=== PATIENT | male | born 1990 | race Caucasian/White ===

== ENCOUNTER 2024-03-04 14:57 | Outpatient (AMB) | payer BC, SELFPAY ==
--- NOTE | 2024-03-04 15:00 | MHC.PC.OV ---
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 Intake Note: new patient Allergies povidone-iodine [From Betadine] Allergy (Severe, Verified 03/04/24 15:03) Hives cats Allergy (Severe, Uncoded 03/04/24 15:03) Hives Tobacco use date assessed: 03/04/24 Dental Screening Dental Screen Date: 03/04/24 Did you have a dental visit in the last 12 months?: No Did you have a dental problem in the last 6 months where you did not have access to dental care?: No Was dental information given to patient?: Patient has dentist [facility] Medical History (Updated 03/04/24 @ 15:06 by Ascencion Villarreal) Spinal cord cysts Family History (Updated 03/04/24 @ 15:07 by Ascencion Villarreal) Sister Diabetes Social History (Updated 03/04/24 @ 15:07 by Ascencion Villarreal) Household Members: Family Housing: Apartment Coding
[2024-03-04 15:08] VITALS: BP 134/72; PULSE 95; RESP 16; O2SAT 96; BMI 43.3
--- NOTE | 2024-03-04 15:10 | A.OFFPC_ITS ---
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 Allergies povidone-iodine [From Betadine] Allergy (Severe, Verified 03/04/24 15:03) Hives cats Allergy (Severe, Uncoded 03/04/24 15:03) Hives Tobacco use date assessed: 03/04/24 Dental Screening Dental Screen Date: 03/04/24 Did you have a dental visit in the last 12 months?: No Did you have a dental problem in the last 6 months where you did not have access to dental care?: No Was dental information given to patient?: Patient has dentist [facility] Medical History (Updated 03/04/24 @ 15:06 by Ascencion Villarreal) Spinal cord cysts Family History (Updated 03/04/24 @ 15:13 by Ascencion Villarreal) Sister Diabetes Mental health disorder Social History (Updated 03/04/24 @ 15:11 by Ascencion Villarreal) Household Members: Family Housing: Apartment Alcohol intake: never Patient Tobacco Use Status: Never used Tobacco e-Cigarette/Vaping Use: Never Used service: No Current occupational status: employed 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
--- NOTE | 2024-03-04 15:14 | A.OFFPC_ITS ---
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 Allergies povidone-iodine [From Betadine] Allergy (Severe, Verified 03/04/24 15:03) Hives cats Allergy (Severe, Uncoded 03/04/24 15:03) Hives Tobacco use date assessed: 03/04/24 Dental Screening Dental Screen Date: 03/04/24 Did you have a dental visit in the last 12 months?: No Did you have a dental problem in the last 6 months where you did not have access to dental care?: No Was dental information given to patient?: Patient has dentist HPI HPI Comments History of Present Illness Details This is a 33-year-old male with no significant past medical history presenting [facility]. His last physical was over 5 years ago. He was a patient at [facility], but he never saw anyone there. He is agreeable to fasting labs and screening for STIs including HIV testing. Eye exam is up to date. He is scheduling a dental visit. He just got insurance. He doesn't recall when/if he had Tdap vaccine. 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 He will get it on a Friday. He has a murmur. States at his last physical years ago they mentioned this to him. Denies chest pain or trouble breathing or syncope. He has never had an echocardiogram. He snores heavily. He has insomnia. He feels fatigued toward the end of the day and sometimes feels like sleep is not restorative. ROS: Constitutional: No unexplained weight loss, fever, chills, fatigue or night sweats. Eyes: No vision changes, blurry vision, double vision, eye pain, eye redness, eye discharge. ENT: No hearing loss, sneezing, congestion, runny nose or sore throat. Respiratory: No shortness of breath, cough or sputum production. Cardiovascular: No chest pain, chest pressure or chest discomfort. No palpitations or pedal edema. Gastrointestinal: No anorexia, nausea, vomiting or diarrhea. No abdominal pain or blood in stool. Genitourinary: No dysuria, hematuria, urinary frequency. Neurologic: No headache, dizziness, syncope, unilateral weakness, ataxia, numbness or tingling in the extremities. Musculoskeletal: No muscle pain, back pain, joint pain or swelling. Hematologic/Lymphatics: No bleeding or bruising. No painful lymph nodes. Skin: No rash or itching. Endocrine: No cold or heat intolerance. No polyuria or polydipsia. Psychiatric: No depression or anxiety. No SI/HI. Physical exam: Constitutional: Alert, in no distress. Head: Normocephalic. Eyes: Pupils are equal, round and reactive to light. Extraocular muscles intact. Ear, Nose and Throat: Canals clear. TMs normal. Normal nasal mucosa. No nasal discharge. No oral lesions. Neck: Supple, Full range of motion. No lymphadenopathy. No palpable thyroid masses. Respiratory: Clear to auscultation. Cardiovascular: S1 S2 regular. II/ systolic murmur. Gastrointestinal: Abdomen soft, non-tender, non-distended. Normal bowel sounds. No palpable masses. Genitourinary: Patient declined exam but states home exams are normal. Neurologic: No focal neurological deficits. Symmetric patellar reflexes. Moves all extremities spontaneously. Sensation intact bilaterally. Skin: No rashes Musculoskeletal: No gross deformities. Normal range of motion. Extremities: Warm and well perfused. No clubbing, cyanosis or edema. 3+ peripheral pulses bilaterally. Psychiatric: Normal mood and affect [facility] Medical History (Updated 03/04/24 @ 15:55 by KERLINE Montemayor) Fatigue Snoring Routine physical examination Screening for cardiovascular condition Heart murmur Pilonidal cyst Surgical History (Updated 03/04/24 @ 15:32 by KERLINE Montemayor) History of inguinal hernia repair, bilateral History of wisdom tooth extraction History of ankle surgery Family History (Updated 03/04/24 @ 15:30 by Ascencion Villarreal) Sister Diabetes Mental health disorder Mother Diabetes Maternal Grandmother Alcoholism Paternal Grandmother Cancer Social History (Updated 03/04/24 @ 15:11 by Ascencion Villarreal) Household Members: Family Housing: Apartment Alcohol intake: never Patient Tobacco Use Status: Never used Tobacco e-Cigarette/Vaping Use: Never Used Use of substances other than those prescribed or required for medical reasons: No service: No Current occupational status: employed 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 1. Little interest or pleasure in doing things: more than half the days 2. Feeling down, depressed, or hopeless: several days 3. Trouble falling or staying asleep, or sleeping too much: several days 4. Feeling tired or having little energy: several days 5. Poor appetite or overeating: several days 6. Feeling bad about yourself - or that you are a failure or have let yourself or your family down: not at all 7. Trouble concentrating on things, such as reading the newspaper or watching television: more than half the days 8. Moving or speaking so slowly that other people could have noticed. Or the opposite - being so fidgety or restless that you have been moving around a lot more than usual: several days 9. Thoughts that you would be better off or of hurting yourself in some way: not at all Total score: 9 Depression Screening Interpretation: Positive (Patient says these instances are related to specific events and denies depression. States he moves past these things fine. ) Depression Screening Done: Yes [id number] - PHQ-9 Billing: Yes Source: Developed by Drs. Curtis Khan, Josephine Briceno, Adair Jewell and colleagues, with an educational jeffery from [email or web address]. Thrive Questionnaire Date Thrive assessed: 03/04/24 I am a: Patient What is your living situation today?: I have a steady place to live Within the past 12 months, did the food you bought not last and you didn't have the money to get more?: Never true Within the past 12 months, did you worry whether your food would run out before you got money to buy more?: Never true Do you have trouble paying for medicines?: No Do you have trouble getting transportation to medical appointments?: No Do you have trouble paying your heating and electricity bill?: No Do you have trouble taking care of your child, family member or friend?: No Do you have trouble with day-to-day activities such as bathing, preparing meals, shopping, managing finances, etc.?: No Are you currently unemployed and looking for a job?: No Are you interested in more education?: Yes Please select the resources that you would like help with: None THRIVE Score: 0 JAN-7 AMB Questionnaire JAN-7 Date JAN - 7 assessed: 03/04/24 Feeling nervous, anxious, or on edge: 2 = More than half the days Not being able to stop or control worryin = Several days Worrying too much about different things: 1 = Several days Trouble relaxin = Several days Being so restless that it is hard to sit still: 0 = Not at all Becoming easily annoyed or irritable: 1 = Several days Feeling afraid as if something awful might happen: 1 = Several days Total JAN-7 score (0-4 normal; 5-9 mild; 10-14 moderate; 15-21 severe): 7 Source: Developed by Drs. Curtis Khan, Josephine Briceno, Adair Jewell and colleagues, with an educational jeffery from [email or web address]. JAN-7 Assessment Billing JAN-7 Assessment Tool: JAN-7 Assessment 11269 Physical exam (Primary Care) Vital Signs: Last Vital Signs Pulse 95 03/04/24 15:08 Resp 16 03/04/24 15:08 BP 134/72 03/04/24 15:08 Pulse Ox 96 03/04/24 15:08 Oxygen Delivery Method Room Air 03/04/24 15:08 BMI result Body Mass Index 43.3 Tobacco/Smoking Status: Tobacco use Status Tobacco use date assessed 03/04/24 03/04/24 15:25 Patient Tobacco Use Status Never used Tobacco 03/04/24 15:25 e-Cigarette/Vaping Use Never Used 03/04/24 15:25 PHQ-9: PHQ-9 Score PHQ-9: Total score 9 03/04/24 15:25 Depression Screening Interpretation: Positive (Patient says these instances are related to specific events and denies depression. States he moves past these things fine. ) Thrive Assessment: Date of Thrive Assessment Date Thrive assessed 03/04/24 03/04/24 15:25 Assessment and Plan Assessment & Plan (1) Routine physical examination: Code(s): Z00.00 - Encounter for general adult medical examination without abnormal findings Plan: Patient is seen today for a routine physical. As part of this visit we reviewed the following issues, which are considered and essential part of preventative health in this age group: - Testicular cancer screening, which includes self exam teaching - Blood pressure screening - Cholesterol screening - Nutritional and exercise counseling - Counseling of injury prevention including fire prevention, smoke alarms and seat belt usage - Screening for depression - Prevention of and/or testing for infectious diseases - Education about skin cancer - Recommendations about immunizations - Recommendation of an eye exam - Screening for substance abuse (2) Heart murmur: Code(s): R01.1 - Cardiac murmur, unspecified Plan: Due to poor data quality EKG could not be interpreted (no razors in office to prep chest for EKG unfortunately). Patient has electric razor at home. Will schedule nurse visit and remove chest hair before this. Patient very unders tanding of this. Echocardiogram ordered for further evaluation. (3) Snoring: Code(s): R06.83 - Snoring Plan: Sleep study ordered for snoring and fatigue. (4) Fatigue: Code(s): R53.83 - Other fatigue Qualifiers: Fatigue type: chronic, unspecified Qualified Code(s): R53.82 - Chronic fatigue, unspecified Plan Follow up in 2 months for snoring, murmur, test results. Orders: Orders Lipid Panel Today E66.9 - Obesity, unspecified, Z00.00 - Encounter for general adult medical examination without abnormal findings, Z13.6 - Encounter for screening for cardiovascular disorders Complete Blood Count no Diff Today E66.9 - Obesity, unspecified, Z00.00 - Encounter for general adult medical examination without abnormal findings, Z13.6 - Encounter for screening for cardiovascular disorders RT home sleep study Today R06.83 - Snoring, R53.83 - Other fatigue Syphilis Screen Today Z11.3 - Encounter for screening for infections with a predominantly sexual mode of transmission HIV Ab/Ag Today Z11.3 - Encounter for screening for infections with a predominantly sexual mode of transmission Hepatitis C Antibody Today Z11.3 - Encounter for screening for infections with a predominantly sexual mode of transmission Comprehensive Met. Panel Today E66.9 - Obesity, unspecified, Z00.00 - Encounter for general adult medical examination without abnormal findings, Z13.6 - Encounter for screening for cardiovascular disorders TSH reflex Free T4 Today E66.9 - Obesity, unspecified, Z00.00 - Encounter for general adult medical examination without abnormal findings, Z13.6 - Encounter for screening for cardiovascular disorders AMB EKG-In Office Today E66.9 - Obesity, unspecified, R01.1 - Cardiac murmur, unspecified, Z00.00 - Encounter for general adult medical examination without abnormal findings, Z13.6 - Encounter for screening for cardiovascular disorders CA echo transthoracic complete Today R01.1 - Cardiac murmur, unspecified CT NG by PCR Today Z11.3 - Encounter for screening for infections with a predominantly sexual mode of transmission Coding Level of Care Code New Pt Prev Care 18-39yr([id number] Diagnoses Routine physical examination Z00.00 Heart murmur R01.1 Snoring R06.83 Chronic fatigue R53.82 Fatigue type: chronic, unspecified Additional Codes JAN-7 Assessment Billing - JAN-7 Assessment Tool: JAN-7 Assessment [id number] ([id number])
== END 2024-03-04 16:05 | disposition home or self-care (01) ==
PROVIDERS: Visit Provider Physician Assistant Medical
DX: Z00.00 Encounter for general adult medical examination without abnormal findings (principal); R01.1 Cardiac murmur, unspecified; R06.83 Snoring; R53.82 Chronic fatigue, unspecified
CPT/HCPCS: 99385

== ENCOUNTER 2024-03-06 12:15 | Outpatient (REF) | payer BC, SELFPAY ==
[2024-03-06 12:54] LABS: Hemoglobin 17.1 g/dl (14.0-18.0); Mean Corpuscular HGB Conc 34.9 g/dl (31.0-36.0); Mean Corpuscular Hemoglobin 30.2 pg (27.0-33.0); Mean Corpuscular Volume 86.4 fL (80.0-98.0); Mean Platelet Volume 10.3 fL (9.4-12.4); Platelet Count 230 X10*3/uL (160-400); Red Blood Count 5.67 X10*6/uL (4.60-5.80); Red Cell Distribution Width 11.9 % (11.0-16.0); White Blood Count 6.4 X10*3/uL (4.8-10.8)
[2024-03-06 13:19] LABS: Alanine Aminotransferase 55 U/L (0-40); Albumin Level 4.6 g/dL (3.5-5.0); Alkaline Phosphatase 40 U/L (39-117); Anion Gap 13 (12-20); Aspartate Amino Transferase 25 U/L (5-37); Bilirubin Total 1.4 mg/dL (0.0-1.0); Blood Urea Nitrogen 10 mg/dL (9-16); Calcium 9.9 mg/dL (8.4-10.2); Carbon Dioxide 28 mmol/L (22-29); Chloride 104 mmol/L (96-108); Cholesterol 251 mg/dL (<200); Estimated Glomerular Filt Rate > 60; Glucose Random 125 mg/dL (60-115); HDL Cholesterol 36 mg/dL (>40); LDL Cholesterol Calculated 183 mg/dL (<100); Potassium 4.1 mmol/L (3.3-5.1); Sodium 141 mmol/L (135-145); Total Protein 8.2 g/dL (6.5-8.0); Triglycerides 163 mg/dL (<150)
[2024-03-06 13:31] LABS: HIV AB/AG Nonreactive (Nonreactive); HIV Num 1 0.05 S/CO (0.00-0.99); Syphilis Screen Nonreactive (Nonreactive); ~HepC Num1 0.22 S/CO (0.00-0.79); ~Hepatitis C Antibody Nonreactive (Nonreactive)
[2024-03-06 13:36] LABS: TSH reflex Free T4 0.98 uIU/mL (0.32-4.0)
== END 2024-03-06 12:16 | disposition home or self-care (01) ==
LOC: HO.HMGCLDS 12:15
PROVIDERS: Visit Provider Physician Assistant Medical
DX: Z00.00 Encounter for general adult medical examination without abnormal findings (principal); Z13.6 Encounter for screening for cardiovascular disorders; E66.9 Obesity, unspecified; Z11.3 Encounter for screening for infections with a predominantly sexual mode of transmission
CPT/HCPCS: 36415; 80053; 80061; 84443; 85027; 86780; 86803; 87389

== ENCOUNTER 2024-03-11 14:56 | Outpatient (AMB) | payer BC, SELFPAY ==
--- NOTE | 2024-03-11 15:07 | MHC.PC.OV ---
Vital Signs 03/11/24 15:08 Height 5 ft 10.28 in Weight 307 lb 4 oz BMI 43.7 BP 118/82 Blood Pressure Location Rt brachial Position Sitting Respiration 16 Pulse 83 Pulse Source Pulse Oximeter Pulse Oximetry (%) 96 Oxygen Delivery Method Room Air Intake Visit Reasons: Labs Review Intake Note: Lab results Allergies povidone-iodine [From Betadine] Allergy (Severe, Verified 03/11/24 15:08) Hives cats Allergy (Severe, Uncoded 03/11/24 15:08) Hives Tobacco use date assessed: 03/04/24 Dental Screening Dental Screen Date: 03/04/24 HPI HPI Comments History of Present Illness Details This is a 34-year-old male with a past medical history of morbid obesity presenting to review his lab results. His fasting blood sugar is elevated at 125. His mother and sister have diabetes. His hemoglobin A1c is 9.3%. Patient says he did start checking his blood sugar at home about a month ago, and it was 310. Since then he decreased carbohydrates in his diet, and now he is seeing readings between 110-150. Denies blurry vision, polyuria, polydipsia. He has mixed hyperlipidemia and low HDL cholesterol. Nonsmoker. He eats a lot of red meat and carbohydrates. Does not exercise regularly. His total protein level was mildly elevated when fasting. His fasting bilirubin is elevated at 1.4 and ALT elevated at 55. Alk-phos and AST within normal range. No abdominal pain, nausea, vomiting or unexplained weight loss. No jaundice. Does not take Tylenol frequently or drink any alcohol. ROS: Constitutional: No unexplained weight loss, fever, chills. Respiratory: No shortness of breath, cough or sputum production. Cardiovascular: No chest pain, chest pressure or chest discomfort. No palpitations or pedal edema. Endocrine: No cold or heat intolerance. No polyuria or polydipsia. Physical exam: Constitutional: Alert, in no distress. Respiratory: Clear to auscultation. Cardiovascular: S1 S2 regular. Extremities: Warm and well perfused. No clubbing, cyanosis or edema. Psychiatric: Normal mood and affect [facility] Medical History (Updated 03/11/24 @ 16:35 by KERLINE Montemayor) Type II diabetes mellitus Mixed dyslipidemia Abnormal liver function IFG (impaired fasting glucose) Fatigue Snoring Routine physical examination Screening for cardiovascular condition Heart murmur Pilonidal cyst Surgical History (Updated 03/04/24 @ 15:32 by KERLINE Montemayor) History of inguinal hernia repair, bilateral History of wisdom tooth extraction History of ankle surgery Family History (Updated 03/04/24 @ 15:30 by Ascencion Villarreal) Sister Diabetes Mental health disorder Mother Diabetes Maternal Grandmother Alcoholism Paternal Grandmother Cancer Social History (Updated 03/04/24 @ 15:11 by Ascencion Villarreal) Household Members: Family Housing: Apartment Alcohol intake: never Patient Tobacco Use Status: Never used Tobacco e-Cigarette/Vaping Use: Never Used service: No 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 Curtis Khan, Josephine Briceno, Adair Jewell and colleagues, with an educational jeffery from [employer]. Physical exam (Primary Care) Vital Signs: Last Vital Signs Pulse 83 03/11/24 15:08 Resp 16 03/11/24 15:08 BP 118/82 03/11/24 15:08 Pulse Ox 96 03/11/24 15:08 Oxygen Delivery Method Room Air 03/11/24 15:08 BMI result Body Mass Index 43.7 Tobacco/Smoking Status: Tobacco use Status Tobacco use date assessed 03/04/24 03/11/24 15:10 Patient Tobacco Use Status Never used Tobacco 03/11/24 15:10 e-Cigarette/Vaping Use Never Used 03/11/24 15:10 Thrive Assessment: Date of Thrive Assessment Date Thrive assessed 03/04/24 03/11/24 15:10 Results AMB Hemoglobin A1c AMB Hemoglobin A1c 9.3 % Last Edit by Cherise Clayton CMA on 03/11/24 16:16 Results Reviewed Results Reviewed: Laboratory Tests 03/06/24 12:20 Random Glucose 125 H Total Bilirubin 1.4 H AST 25 ALT 55 H Alkaline Phosphatase 40 Total Protein 8.2 H Triglycerides 163 H Cholesterol 251 H LDL Cholesterol, Calc 183 H HDL Cholesterol 36 L Assessment and Plan Assessment & Plan (1) Type II diabetes mellitus: Code(s): E11.9 - Type 2 diabetes mellitus without complications Qualifiers: Diabetes mellitus [facility] insulin use: without terminal gauger supervisor use Diabetes mellitus complication status: without complication Qualified Code(s): E11.9 - Type 2 diabetes mellitus without complications Plan: New diagnosis with hemoglobin A1c 9.3% with a goal of less than 7%. A1c may be inflated given that he implemented lifestyle modifications within the past month after seeing elevated glucose reading at home, and his home BG readings have already improved. Start metformin ER 500 mg once daily for a week and then increase to 1000 mg daily. Side effects reviewed with the patient. He has a glucometer at home. Target fasting glucose 70-130. Patient defers referral to dietitian and counter clerk [employer] at this time. He would be a good candidate for GLP 1 to help with weight loss. We discussed this briefly today. He will start with the metformin, and we can discuss this further at our next follow up appointment. Discussed pathophysiology of Type II Diabetes Mellitus with the patient in detail.? I explained the [facility] risks and complications associated with uncontrolled diabetes including nephropathy, neuropathy, peripheral vascular disease, retinopathy, increased risk of heart disease and stroke.? (2) Abnormal liver function: Code(s): R94.5 - Abnormal results of liver function studies Plan: Repeat LFTs in 1 month. I am concerned about hepatic steatosis given mixed hyperlipidemia and obesity. We reviewed dietary changes. We will screen for hep a and hep B. Hep C testing negative. Liver ultrasound ordered. (3) Mixed dyslipidemia: Code(s): E78.2 - Mixed hyperlipidemia Plan: We discussed that elevated cholesterol is a risk factor for cardiovascular disease. Recommended low-cholesterol diet. Increase fiber with fruits and vegetables. 30 minutes of cardiovascular exercise at least 5 days per week recommended. Patient declines referral to dietitian at this time. Discussed indication for statin given diabetes, but the patient does not want to start multiple medications at once. Reevaluate at follow up in 6 weeks. (4) IFG (impaired fasting glucose): Code(s): R73.01 - Impaired fasting glucose Orders: Orders AMB Hemoglobin A1c Today R73.01 - Impaired fasting glucose, Z13.9 - Encounter for screening, unspecified Liver Panel 4 Weeks R73.01 - Impaired fasting glucose, R94.5 - Abnormal results of liver function studies Hepatitis B Core Antibody 4 Weeks R73.01 - Impaired fasting glucose, R94.5 - Abnormal results of liver function studies Hepatitis B Surface Antigen 4 Weeks R73.01 - Impaired fasting glucose, R94.5 - Abnormal results of liver function studies US abdomen limited Today R94.5 - Abnormal results of liver function studies Hepatitis A IgM 4 Weeks R73.01 - Impaired fasting glucose, R94.5 - Abnormal results of liver function studies Total Protein 4 Weeks R73.01 - Impaired fasting glucose, R94.5 - Abnormal results of liver function studies Medications: New metformin ER Take 1 tab po daily for 7 days then increase to 2 tabs po once daily 1,000 mg (2 x 500 mg) PO DAILY 90 days 180 tabs 0RF Patient Instructions: 1. Start Metformin ER 500 mg once in the morning. After the first week increase to 2 tablets every morning. 2. The goal for the fasting blood sugar readings is between 70-130. 3. Please return to the lab in 4 weeks to repeat liver function tests. 4. Diabetes.org is a resource for information on diabetes. Coding Level of Care Code Est Pt Level 4 (70602) Complex EM visit Add On G2211 Diagnoses Type 2 diabetes mellitus without complication, without long-term current use of insulin E11.9 Diabetes mellitus [facility] insulin use: without terminal gauger supervisor use Diabetes mellitus complication status: without complication Abnormal liver function R94.5 Mixed dyslipidemia E78.2 IFG (impaired fasting glucose) R73.01
[2024-03-11 15:08] VITALS: BP 118/82; PULSE 83; RESP 16; O2SAT 96; BMI 43.7
== END 2024-03-11 16:29 | disposition home or self-care (01) ==
PROVIDERS: Visit Provider Physician Assistant Medical
DX: E11.9 Type 2 diabetes mellitus without complications (principal); R94.5 Abnormal results of liver function studies; E78.2 Mixed hyperlipidemia; R73.01 Impaired fasting glucose; Z13.9 Encounter for screening, unspecified
CPT/HCPCS: 83036; 99214

== ENCOUNTER 2024-03-29 09:52 | Outpatient (REF) | payer BC, SELFPAY ==
--- NOTE | ~2024-03-29 | US_ITS ---
EXAMINATION: US ABDOMEN LIMITED CLINICAL INFORMATION: Abnormal results of liver function studies. COMPARISON: None available. TECHNIQUE: Real-time imaging of the right upper quadrant abdominal viscera. FINDINGS: PANCREAS: Normal in echotexture. Pancreatic tail is obscured by bowel gas. LIVER: Enlarged, measuring 18.9 cm in vertical length. The liver contour is normal. There is diffuse increased liver parenchymal echogenicity, consistent with hepatic steatosis. No focal hepatic lesion. There is no intrahepatic biliary duct dilatation seen. GALLBLADDER: Normal. The gallbladder is physiologically distended without evidence of stones, sludge, polyps, wall thickening or pericholecystic fluid. COMMON BILE DUCT: Normal in caliber measuring 0.33 cm in diameter. RIGHT KIDNEY: Normal. No hydronephrosis. No renal calculi or focal parenchymal lesions. The kidney measures 14.3 cm in maximum dimension. FREE FLUID: None. US/US abdomen limited IMPRESSION: 1. Hepatomegaly with hepatic steatosis. 2. No cholelithiasis or cholecystitis. 3. Incomplete visualization of pancreas due to bowel gas. Electronically signed by: Tom Hutchison MD 03/31/2024 07:15 AM EDT
== END 2024-03-29 09:53 | disposition home or self-care (01) ==
LOC: HO.HMGCX 09:52
PROVIDERS: PCP Physician Assistant Medical; Visit Provider Physician Assistant Medical
DX: R94.5 Abnormal results of liver function studies (principal)
CPT/HCPCS: 76705

== ENCOUNTER 2024-04-22 14:54 | Outpatient (AMB) | payer BC, SELFPAY ==
--- NOTE | 2024-04-22 15:28 | MHC.PC.OV ---
Vital Signs 04/22/24 15:29 04/22/24 16:07 Height 5 ft 10.28 in Weight 304 lb 2 oz BMI 43.3 BP 116/78 Blood Pressure Location Rt brachial Position Sitting Pulse 81 Pulse Source Pulse Oximeter Pulse Oximetry (%) 94 98 Oxygen Delivery Method Room Air Intake Visit Reasons: diabetes follow up Intake Note: Diabetes follow up Wireless Sales Expert Required: No Allergies povidone-iodine [From Betadine] Allergy (Severe, Verified 04/22/24 15:28) Hives cats Allergy (Severe, Uncoded 04/22/24 15:28) Hives Tobacco use date assessed: 03/04/24 Dental Screening Dental Screen Date: 03/04/24 HPI HPI Comments History of Present Illness Details This is a 34-year-old male with a past medical history of obesity, a heart murmur, fatigue and snoring, recently diagnosed type 2 diabetes, mixed dyslipidemia, hepatomegaly and hepatic steatosis presenting for follow up. Type 2 diabetes-the patient was diagnosed after screening labs demonstrated hemoglobin A1c of 9.3% on 03/11/2024. He has a family history of diabetes. He can not take metformin since this contains povidone (Betadine allergic), and he is taking glipizide ER 5 mg daily. He has forgotten a couple of doses, but generally he is consistent with it. When he checks his blood sugars they are between 105-140 when fasting. He is due for his next hemoglobin A1c in June. On 03/06/2024 his total bilirubin and ALT were mildly elevated at 1.4 and 55, respectively. Normal AST and alkaline phosphatase. He had a liver ultrasound which showed hepatic steatosis and hepatomegaly. Patient was referred to Gastroenterology. He does not drink alcohol. He does not have a family history of liver disease. He has a lot of red meat in his diet, but he has cut back since our last appointment. He still having it about 3 times per week. He is trying to eat more chicken and vegetables. He has continued to decline referral to a dietitian based on his busy schedule. He has lost 3 lb since March. The patient had a heart murmur on exam. His echocardiogram is scheduled. He denies chest pain or shortness of breath. His sleep study is scheduled this Friday. He will get the flu shot at the pharmacy and deferred today. The past couple of weeks his right ear has felt blocked up. He did remove some dry skin and wax at home. There is pressure but no pain. He gets allergies in the fall and spring time. ROS: Constitutional: No unexplained weight loss, fever, chills or night sweats. Eyes: No vision changes, blurry vision, double vision, eye pain, eye redness, eye discharge. ENT: +sneezing and runny nose, no sore throat or sinus pain Respiratory: No shortness of breath, cough or sputum production. Cardiovascular: No chest pain, chest pressure or chest discomfort. No palpitations or pedal edema. Gastrointestinal: No anorexia, nausea, vomiting or diarrhea. No abdominal pain Neurologic: No headache, dizziness, syncope, unilateral weakness, ataxia, numbness or tingling in the extremities. Physical exam: Constitutional: Alert, in no distress. Eyes: Pupils are equal, round and reactive to light. Extraocular muscles intact. Ear, Nose and Throat: Canals with some dry flaking skin. Left TM normal. Right tympanic membrane erythematous with dull light reflex and mild bulging. . Normal nasal mucosa. No nasal discharge. No oral lesions. Neck: Supple, Full range of motion. No lymphadenopathy. No palpable thyroid masses. Respiratory: Clear to auscultation. Cardiovascular: S1 S2 regular. 2/6 systolic murmur. Gastrointestinal: Abdomen soft, non-tender, non-distended. Normal bowel sounds. No palpable masses. Genitourinary: No costovertebral angle tenderness. Neurologic: No focal neurological deficits. Extremities: Warm and well perfused. No clubbing, cyanosis or edema. Psychiatric: Normal mood and affect [facility] Medical History (Updated 04/08/24 @ 10:29 by KERLINE Montemayor) Hepatomegaly Hepatic steatosis Type II diabetes mellitus Mixed dyslipidemia Abnormal liver function IFG (impaired fasting glucose) Fatigue Snoring Routine physical examination Screening for cardiovascular condition Heart murmur Pilonidal cyst Surgical History (Updated 03/04/24 @ 15:32 by KERLINE Montemayor) History of inguinal hernia repair, bilateral History of wisdom tooth extraction History of ankle surgery Family History (Updated 03/04/24 @ 15:30 by Ascencion Villarreal MA) Sister Diabetes Mental health disorder Mother Diabetes Maternal Grandmother Alcoholism Paternal Grandmother Cancer Social History (Updated 03/04/24 @ 15:11 by Ascencion Villarreal MA) Household Members: Family Housing: Apartment Alcohol intake: never Patient Tobacco Use Status: Never used Tobacco e-Cigarette/Vaping Use: Never Used service: No Current occupational status: employed 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 1. Little interest or pleasure in doing things: several days 2. Feeling down, depressed, or hopeless: several days 3. Trouble falling or staying asleep, or sleeping too much: several days 4. Feeling tired or having little energy: not at all 5. Poor appetite or overeating: several days 6. Feeling bad about yourself - or that you are a failure or have let yourself or your family down: not at all 7. Trouble concentrating on things, such as reading the newspaper or watching television: not at all 8. Moving or speaking so slowly that other people could have noticed. Or the opposite - being so fidgety or restless that you have been moving around a lot more than usual: not at all 9. Thoughts that you would be better off or of hurting yourself in some way: not at all Total score: 4 Source: Developed by Drs. Curtis Khan, Josephine Briceno, Adair Jewell and colleagues, with an educational jeffery from [employer]. Thrive Questionnaire Date Thrive assessed: 03/04/24 I am a: Patient What is your living situation today?: I have a steady place to live Within the past 12 months, did the food you bought not last and you didn't have the money to get more?: Never true Within the past 12 months, did you worry whether your food would run out before you got money to buy more?: Never true Do you have trouble paying for medicines?: No Do you have trouble getting transportation to medical appointments?: No Do you have trouble paying your heating and electricity bill?: No Do you have trouble taking care of your child, family member or friend?: No Do you have trouble with day-to-day activities such as bathing, preparing meals, shopping, managing finances, etc.?: No Are you currently unemployed and looking for a job?: No Are you interested in more education?: Yes Please select the resources that you would like help with: Education Currently or been in a relationship where the following occur: No concerns reported THRIVE Score: 0 AUDIT C Alcohol Use Questionnaire (AUDIT-C) 1. How often do you have a drink containing alcohol?: Never Total Score: 0 JAN-7 AMB Questionnaire JAN-7 Date JAN - 7 assessed: 03/04/24 Feeling nervous, anxious, or on edge: 0 = Not at all Not being able to stop or control worryin = Not at all Worrying too much about different things: 0 = Not at all Trouble relaxin = Not at all Being so restless that it is hard to sit still: 0 = Not at all Becoming easily annoyed or irritable: 0 = Not at all Feeling afraid as if something awful might happen: 0 = Not at all Total JAN-7 score (0-4 normal; 5-9 mild; 10-14 moderate; 15-21 severe): 0 Source: Developed by Drs. Curtis Khan, Josephine Briceno, Adair Jewell and colleagues, with an educational jeffery from [employer]. Physical exam (Primary Care) Vital Signs: Last Vital Signs Pulse 81 04/22/24 15:29 BP 116/78 04/22/24 15:29 Pulse Ox 94 04/22/24 15:29 Oxygen Delivery Method Room Air 04/22/24 15:29 BMI result Body Mass Index 43.3 Tobacco/Smoking Status: Tobacco use Status Tobacco use date assessed 03/04/24 04/22/24 15:34 Patient Tobacco Use Status Never used Tobacco 04/22/24 15:34 e-Cigarette/Vaping Use Never Used 04/22/24 15:34 PHQ-9: PHQ-9 Score PHQ-9: Total score 4 04/22/24 15:34 Thrive Assessment: Date of Thrive Assessment Date Thrive assessed 03/04/24 04/22/24 15:34 Currently or been in a relationship where the following occur: No concerns reported Coding Level of Care Code Est Pt Level 4 (57173) Complex EM visit Add On G2211 Diagnoses Type 2 diabetes mellitus without complication, without long-term current use of insulin E11.9 Diabetes mellitus correction insulin use: without truck terminal manager use Diabetes mellitus complication status: without complication Hepatic steatosis K76.0 Hepatomegaly R16.0 Chronic fatigue R53.82 Fatigue type: chronic, unspecified Snoring R06.83 Heart murmur R01.1 Mixed dyslipidemia E78.2 Right otitis media H66.91 Assessment & Plan Assessment & Plan (1) Type II diabetes mellitus: Code(s): E11.9 - Type 2 diabetes mellitus without complications Category: Medical Qualifiers: Diabetes mellitus truck terminal manager insulin use: without correction use Diabetes mellitus complication status: without complication Qualified Code(s): E11.9 - Type 2 diabetes mellitus without complications Plan: Discussed pathophysiology of Type II Diabetes Mellitus with the patient in detail.? I explained the correction risks and complications associated with uncontrolled diabetes including nephropathy, neuropathy, peripheral vascular disease, retinopathy, increased risk of heart disease and stroke.? Discussed lifestyle modification with the patient. Recommended 30 minutes of moderately vigorous exercise 5 days per week to promote weight loss. Recommended annual diabetic eye exam. Recommended importance of checking blood sugars regularly to review at appointments. Continue glipizide extended release 5 mg daily. Patient not interested in GLP 1 at this time. Check hemoglobin A1c 06/10/2024 (2) Hepatic steatosis: Code(s): K76.0 - Fatty (change of) liver, not elsewhere classified Category: Medical Plan: Patient has been referred to Gastroenterology. We will treat dyslipidemia-see below. Lifestyle modifications reviewed again. Avoid alcohol. Decrease cholesterol rich foods in diet. Increase lean proteins and fibrous fruits and vegetables. (3) Hepatomegaly: Code(s): R16.0 - Hepatomegaly, not elsewhere classified Category: Medical Plan: See 2. Refer to Gastroenterology. We will recheck liver enzymes. (4) Fatigue: Code(s): R53.83 - Other fatigue Category: Medical Qualifiers: Fatigue type: chronic, unspecified Qualified Code(s): R53.82 - Chronic fatigue, unspecified Plan: Pending sleep study. (5) Snoring: Code(s): R06.83 - Snoring Category: Medical Plan: Pending sleep study. (6) Heart murmur: Code(s): R01.1 - Cardiac murmur, unspecified Category: Medical (7) Mixed dyslipidemia: Code(s): E78.2 - Mixed hyperlipidemia Category: Medical Plan: Patient will start atorvastatin 20 mg daily. Side effects and administration reviewed. He had 1 mildly elevated liver enzyme which is related to hepatic steatosis, and treating his cholesterol outweighs the risks given concomitant diabetes, morbid obesity and need to reduce cardiovascular risk. Statin may actually help with hepatic steatosis. We will recheck liver enzymes on 06/10/2024 and lipid profile. If he develops any side effects on the medication he will stop it and let me know. (8) Right otitis media: Code(s): H66.91 - Otitis media, unspecified, right ear Plan: Take Augmentin 1 tablet twice daily for 10 days. Recommended oral probiotics and yogurt to reduce the risk of GI side effects. Start Zyrtec 10 mg daily for the next 2 weeks and then as needed for allergy symptoms. Follow up if symptoms do not resolve. Plan Follow up in 3 months for type 2 diabetes. All medications prescribed were run through dailymeds to make sure they do not contain povidone iodine. Orders: Orders Alanine Aminotransferase 06/10/24 E78.5 - Hyperlipidemia, unspecified Lipid Panel 06/10/24 E78.5 - Hyperlipidemia, unspecified Hemoglobin A1c 06/10/24 E11.9 - Type 2 diabetes mellitus without complications Aspartate Amino Transferase 06/10/24 E78.2 - Mixed hyperlipidemia, K76.0 - Fatty (change of) liver, not elsewhere classified, R16.0 - Hepatomegaly, not elsewhere classified Medications: New cetirizine (Zyrtec) 10 mg PO DAILY 30 days 30 tabs 0RF atorvastatin 20 mg PO BEDTIME 90 tabs 0RF amoxicillin-pot clavulanate 875-125 mg 1 tab PO BID 10 days 20 tabs 0RF Patient Instructions: Take Augmentin 1 tab twice daily for 10 days. Take Zyrtec 10 mg at night for 14 days. After this you may you use this as needed for allergy symptoms When you finish Augmentin, start Lipitor (atorvastatin) 20 mg at bedtime. Return for fasting labs 06/10/24 or after this date.
[2024-04-22 15:29] VITALS: BP 116/78; PULSE 81; O2SAT 94; BMI 43.3
[2024-04-22 16:07] VITALS: O2SAT 98
== END 2024-04-22 16:15 | disposition home or self-care (01) ==
PROVIDERS: Visit Provider Physician Assistant Medical
DX: E11.9 Type 2 diabetes mellitus without complications (principal); K76.0 Fatty (change of) liver, not elsewhere classified; R16.0 Hepatomegaly, not elsewhere classified; R53.82 Chronic fatigue, unspecified; R06.83 Snoring; R01.1 Cardiac murmur, unspecified; E78.2 Mixed hyperlipidemia; H66.91 Otitis media, unspecified, right ear

== ENCOUNTER → 2024-04-22 14:54 | Outpatient (BNVA) | payer BC, SELFPAY | PROVIDERS: Visit Provider Physician Assistant Medical ==

== ENCOUNTER → 2024-04-26 09:04 | Outpatient (REF) | payer BC, SELFPAY ==
--- NOTE | 2024-04-26 09:08 | CA_ITS ---
Transthoracic Echocardiogram Patient (Last, First, Middle): Gucci Smith, Gender: Male Date of : 1990 Age: 34 Procedure Date: 04/26/2024 Procedure Type: Transthoracic Echocardiogram Location: OP Height: 177.8 cm Weight: 137.89 kg BSA: 2.49 m2 Heart Rate: bpm BP: 110 / 70 mmHg Warehouse Driver: DOMENICO Referring MD: Karina CHURCHILL Symptoms: R01.1 - Cardiac murmur, unspecified Study Quality: Adequate ECG Rhythm: Sinus Conclusions: - The left ventricular systolic function is normal. The calculated ejection fraction is 64% by biplane method. - No obvious valvular pathology seen on this study. Findings Left Ventricle Normal left ventricular cavity size. There is normal left ventricular wall thickness. The left ventricular systolic function is normal. The calculated ejection fraction is 64% by biplane method. There is no evidence of regional wall motion abnormalities. Diastolic function is normal for age. Right Ventricle Mildly increased right ventricular cavity size. There is normal right ventricular systolic function. Atria Both atria are normal in size. Aortic Valve There is a normal trileaflet aortic valve. There is no aortic valve stenosis. There is no aortic valve regurgitation. Mitral Valve The mitral valve appears normal. There is no mitral valve regurgitation. There is no mitral valve stenosis. Pulmonic Valve The pulmonic valve is likely normal. Tricuspid Valve There is trace tricuspid valve regurgitation. Tricuspid regurgitation envelope is inadequate for calculation of right ventricular systolic pressure. Great Vessels The asc aorta is normal in size. Venous The inferior vena cava was not well visualized. Pericardium/Pleural There is no evidence of pericardial effusion. Prior Study Comparison No prior study available for comparison. Recommendations, Care & Conclusions No obvious valvular pathology seen on this study. Measurements 2D Linear Measurements IVSd: 0.87 0.6-0.9/0.6-1.0 cm LVIDd: 4.87 3.9-5.3/4.2-5.9 cm LVIDd Index: 1.96 2.4-3.2/2.2-3.1 cm/m2 LVIDs: 3.27 2.0-3.6 cm LVPWd: 0.90 0.7-1.1 cm LA Diam: 3.40 2.7-3.8/3.0-4.0 cm LAIDs Index: 1.37 1.5-2.3 cm/m2 LV Mass: 185.31 67-162/88-224 g LV Mass Index: 74.42 43-95/49-115 g/m2 LVOT Diam: 2.00 3.0+(-)1.3 cm 2D Systolic Function EF 4C: 61.60 >55% EF 2C: 64.60 >55% EF BiP: 63.80 >55% Mitral Valve MV Pk E: 1.03 MV PK A: 0.61 MV Decel Time: 227.00 E/A: 1.70 E'Lateral: 14.40 E'Medial: 9.68 E/E' Med: 10.60 E/E' Lat: 7.20 PHT: 67.00 MVA PHT: 3.28 Decel Donley: 4.52 Aortic Valve AoV Pk Fernando: 1.69 AoV Mn Fernando: 1.21 AoV VTI: 0.36 AoV Pk Grad: 11.00 Aov Mn Grad: 6.00 DURGA Cont.VTI: 2.32 LVOT LVOT Pk Fernando: 1.44 LVOT Mn Fernando: 0.95 LVOT VTI: 0.27 LVOT Pk Grad: 8.00 LVOT Mn Grad: 4.00 LVOT Diam: 2.00 LVOT Area: 3.14 Diastolic Function MV Pk E: 1.03 MV Pk A: 0.61 E/A: 1.70 E'Medial: 9.68 E/E' Med: 10.60 E' Laterial: 14.40 E/E' Lat: 7.20 Right Ventricle TAPSE (mm): 21.30 TVS' Fernando: 12.70 Great Vessels Aorta Sinus of Valsalva: 2.83 2.0-3.[address] [place]: 2.15 1.7-3.4 cm Ao Asc: 2.60 2.1-3.4 cm Updated in Other Vendor System with Status of Final Justin De Dios MD electronically signed on 04/26/2024 12:02:41 PM with status of Final
== END ==
LOC: HO.CARD 09:04
PROVIDERS: PCP Physician Assistant Medical; Visit Provider Physician Assistant Medical
DX: R01.1 Cardiac murmur, unspecified (principal); R06.83 Snoring; R53.83 Other fatigue
CPT/HCPCS: 93306; 95806

== ENCOUNTER → 2024-04-26 09:08 | Outpatient (BNV) | payer BC, SELFPAY | PROVIDERS: PCP Physician Assistant Medical; Visit Provider Internal Medicine | DX: R01.1 Cardiac murmur, unspecified (principal) | CPT/HCPCS: 93306 ==

== ENCOUNTER 2024-09-01 15:00 | Outpatient (AMB) | payer BC, SELFPAY ==
--- NOTE | 2024-09-01 15:01 | A.OFFVIS_ITS ---
Vital Signs 09/01/24 15:06 Height 5 ft 10 in Weight 305 lb 8.971 oz BMI 43.8 BP 126/70 Blood Pressure Location Lt brachial Position Sitting Pulse 74 Pulse Source Pulse Oximeter Pulse Oximetry (%) 98 Oxygen Delivery Method Room Air Intake Visit Reasons: Abn. results of liver function Intake Note: NEW PATIENT for abn LFTs. [facility] pt (Don) Prior hx of colo/egd? N Chief Complaint; C/O mild nausea which he believes is diet related. Pt is actively making dietary changes and hoping that it will make a difference. Pt denies any difficulties with BM, reflux, or other concerns at this time. 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 results of liver function: Details: 34-year-old male with past medical history of diabetes, hyperlipidemia, NATTY, he patomegaly is here today for initial consultation. Patient was sent by his PCP. Patient had lab work done back in February and was found to have elevated ALT, normal AST and normal alk phosphate. Laboratory Tests 03/06/24 03/11/24 12:20 16:16 Hgb A1c (Clinic) 9.3 H Total Bilirubin 1.4 H AST 25 ALT 55 H Alkaline Phosphatase 40 Triglycerides 163 H Cholesterol 251 H LDL Cholesterol, Calc 183 H HDL Cholesterol 36 L A1c in March was 9.3% and pt was started on glipizide. Patient's blood sugars as he reports are better, he eliminated carbohydrates, however in the past 3 weeks patient is without a stove and is buying ready prep meals. Patient denies any GI concerning symptoms. Reports that he has been doing well. Denies any dyspepsia, dysphagia or odynophagia. Patient denies any melena, hematochezia, unintentional weight loss or ribbon like stools. Patient reports that in the past couple weeks his diet has not been very healthy as he has been eating pre made meals. Last night he had pizza bites around 20:00 and this morning he woke up with nausea. Patient reports that both of his parents had diabetes. Ultrasound from 03/29/2024 showed hepatomegaly and increase echogenicity of the liver. Patient is overweight. [facility] Medical History NATTY (obstructive sleep apnea) Hepatomegaly Hepatic steatosis Type II diabetes mellitus Mixed dyslipidemia Abnormal liver function IFG (impaired fasting glucose) Fatigue Snoring Routine physical examination Screening for cardiovascular condition Heart murmur Pilonidal cyst Surgical History History of inguinal hernia repair, bilateral History of wisdom tooth extraction History of ankle surgery Family History Sister Diabetes Mental health disorder Mother Diabetes Maternal Grandmother Alcoholism Paternal Grandmother Cancer Social History Household Members: Family Housing: Apartment Alcohol intake: never Patient Tobacco Use Status: Never used Tobacco e-Cigarette/Vaping Use: Never Used service: No Current occupational status: employed 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 Cognitive needs: No Hearing needs: Yes (occasion ) Vision needs: Yes (wear glasses) Review of Systems Const Denies weight gain and Denies weight loss ENT Reports no additional complaints, Denies dysphagia and Denies odynophagia Card Reports no additional complaints Resp Reports no additional complaints GI Denies abdominal pain, Denies belching, Denies melena, Denies bloating, Denies change in bowel habits, Denies dysphagia, Denies excessive flatus, Denies dyspepsia, Denies heartburn, Denies diarrhea, Denies loose stools, Denies nausea, Denies odynophagia and Denies vomiting Reports no additional complaints Musc Reports no additional complaints Neuro Reports no additional complaints Psych Reports no additional complaints Endo Reports no additional complaints Physical Exam Const General: healthy appearing and no acute distress Nutritional Appearance: obese Orientation/consciousness: patient oriented x3 Resp Effort & Inspection: normal respiratory effort, able to speak in complete sentences, no tracheal deviation and symmetric chest movement Auscultation: clear to auscultation bilaterally Cardio Rate: regular rate GI Inspection: Yes normal to inspection, No distended and Yes obesity Palpation (GI): Soft to palpation, not firm, nontender and No hepatosplenomegaly present Auscultation: normal bowel sounds General: Yes no CVA tenderness Back/Spine/Pelvis Back: no CVA tenderness Skin General skin exam: elasticity normal, turgor normal and dry skin Neuro General: patient oriented x3 Psych Appearance: grossly normal Mental Status: mental status grossly normal Results Reviewed Results Reviewed: ABDOMINAL ULTRASOUND 03/29/2024 FINDINGS: PANCREAS: Normal in echotexture. Pancreatic tail is obscured by bowel gas. LIVER: Enlarged, measuring 18.9 cm in vertical length. The liver contour is normal. There is diffuse increased liver parenchymal echogenicity, consistent with hepatic steatosis. No focal hepatic lesion. There is no intrahepatic biliary duct dilatation seen. GALLBLADDER: Normal. The gallbladder is physiologically distended without evidence of stones, sludge, polyps, wall thickening or pericholecystic fluid. COMMON BILE DUCT: Normal in caliber measuring 0.33 cm in diameter. RIGHT KIDNEY: Normal. No hydronephrosis. No renal calculi or focal parenchymal lesions. The kidney measures 14.3 cm in maximum dimension. FREE FLUID: None. US/US abdomen limited IMPRESSION: 1. Hepatomegaly with hepatic steatosis. 2. No cholelithiasis or cholecystitis. 3. Incomplete visualization of pancreas due to bowel gas. Assessment & Plan Assessment & Plan (1) Hepatomegaly: Code(s): R16.0 - Hepatomegaly, not elsewhere classified Category: Medical (2) Hepatic steatosis: Code(s): K76.0 - Fatty (change of) liver, not elsewhere classified Category: Medical (3) Mixed dyslipidemia: Code(s): E78.2 - Mixed hyperlipidemia Category: Medical (4) Abnormal liver function: Code(s): R94.5 - Abnormal results of liver function studies Category: Medical Plan Hepatomegaly, hepatic steatosis most likely not alcoholic fatty liver. We will repeat liver enzymes as well as his lipid panel. Will repeat A1c and if see if it is trending down. Patient should probably be on a different diabetic management to help with weight loss. Possibly GLP 1. No known family history of thyroid cancer or pancreatitis. Will send him for ultrasound and check liver fibrosis panel. Patient was encouraged to eat food low in fat, low-salt, low carbs and high-protein diet. Try to lose weight and exercise. Patient will return in 3 months, sooner on as needed basis. He is agreeable to this plan and verbalizes understanding of instructions. He was given the opportunity to ask questions and all questions answered. Thank you for allowing me to participate in his care Orders: Orders Liver Fibrosis Pnl Today K76.0 - Fatty (change of) liver, not elsewhere classified Lipid Panel Today I25.10 - Atherosclerotic heart disease of [place] coronary artery without angina pectoris Liver Panel Today R74.01 - Elevation of levels of liver transaminase levels Hemoglobin A1c Today Z83.3 - Family history of diabetes mellitus US abdomen comp w elastography Today R79.89 - Other specified abnormal findings of blood chemistry Coding Level of Care Code New Pt Level 4 (25956) Diagnoses Hepatomegaly R16.0 Hepatic steatosis K76.0 Mixed dyslipidemia E78.2 Abnormal liver function R94.5 Time Spent (min) 45 Comment 30 minutes spent with patient and additional 15 minutes spent reviewing his records
[2024-09-01 15:06] VITALS: BP 126/70; PULSE 74; O2SAT 98; BMI 43.8
== END 2024-09-01 15:24 | disposition home or self-care (01) ==
PROVIDERS: PCP Physician Assistant Medical; Visit Provider Nurse Practitioner Family
DX: R16.0 Hepatomegaly, not elsewhere classified (principal); K76.0 Fatty (change of) liver, not elsewhere classified; E78.2 Mixed hyperlipidemia; R94.5 Abnormal results of liver function studies
CPT/HCPCS: 99204

== ENCOUNTER → 2024-09-01 15:00 | Outpatient (BNVA) | payer BC, SELFPAY | PROVIDERS: PCP Physician Assistant Medical; Visit Provider Nurse Practitioner Family ==

== ENCOUNTER 2024-10-01 10:18 | Outpatient (REF) | payer BC, SELFPAY ==
--- NOTE | ~2024-10-01 | US_ITS ---
EXAMINATION: US ABDOMEN COMPLETE WITH LIVER ELASTOGRAPHY HISTORY: R79.89 - Other specified abnormal findings of blood chemistry TECHNIQUE: Real-time grayscale ultrasound imaging of the abdomen was performed and images were reviewed. COMPARISON: Comparison is made with the prior examination dated 03/29/2024. FINDINGS: Liver: The right lobe of the liver measures 20.0 cm in size. The left lobe of the liver measures 15.0 cm in size. The liver demonstrates increased echotexture, consistent with steatosis. No focal mass or intrahepatic biliary ductal dilatation is identified. There is normal hepatopedal flow in the portal vein. Ultrasound elastography of the liver was performed with 10 separate measurements of the liver parenchyma with the patient in the supine position. Measurements were obtained approximately 2 cm below Amara's capsule and perpendicular to the capsule. Images are of satisfactory quality. The median shear wave velocity is 1.97 m/s. The interquartile range/median (IQR/median) is 0.08. Gallbladder and biliary tree: The gallbladder is unremarkable, without evidence of calculi, wall thickening, or pericholecystic fluid. There is no sonographic Rendon sign. The common bile duct is normal in caliber measuring 4 mm. Kidneys: The right kidney measures 14.4 cm in length. The left kidney measures 14.9 cm in length. The kidneys are unremarkable, without evidence of masses, hydronephrosis, or calculi. Pancreas: The pancreas is suboptimally visualized. Spleen: The spleen is enlarged, measuring 13.4 cm in length. Abdominal aorta and inferior vena cava: The visualized portions of the abdominal aorta and inferior vena cava are normal in caliber. There is no free fluid in the abdomen. US/US abdomen comp w elastography IMPRESSION: Hepatosplenomegaly and hepatic steatosis. The median shear wave velocity in the liver is 1.97 m/s, corresponding to a median liver stiffness of 11.75 kPa. The IQR/median value is 0.08. This is indicative of a quality data set. Findings are indicative of a high elastography value suggestive of compensated advanced chronic liver disease. REFERENCE: Society of Radiologists in Ultrasound Liver Stiffness Thresholds (2020): LIVER STIFFNESS THRESHOLDS: *Shear wave velocity less than 1.3 m/s (Liver Stiffness equal or less than 5 kPa): High probability of being normal. *Shear wave velocity less than 1.7 m/s (Liver Stiffness less than 9 kPa): In the absence of other known clinical signs, rules out compensated advanced chronic liver disease. *Shear wave velocity between 1.7-2.1 m/s (Liver Stiffness 9-13 kPa): Suggestive of compensated advanced chronic liver disease but need further test for confirmation. *Shear wave velocity between 2.1-2.4 m/s (Liver Stiffness 13-17 kPa): Rules in compensated advanced chronic liver disease. *Shear wave velocity greater than 2.4 m/s (Liver Stiffness over 17 kPa): Suggestive of clinically significant portal hypertension. QUALITY OF DATA SET: *IQR/Median value equal or less than 0.15 implies a quality data set. *IQR/Median value over 0.15 implies a poor quality data set. SIGNIFICANT CHANGE FROM PRIOR EXAM: Significant change if liver stiffness measurement is 10% or greater from prior exam. OTHER CONSIDERATIONS: The stage of liver fibrosis may be overestimated in the setting of acute hepatitis, liver inflammation, elevated liver function tests, hepatic vascular congestion, obstructive cholestasis, non-fasting state, and infiltrative diseases such as amyloidosis and lymphoma. In some patients with NAFLD, the liver stiffness thresholds for compensated advanced chronic liver disease may be lower. In causes other than viral hepatitis and NAFLD, liver stiffness thresholds are not well established. Electronically signed by: Curtis Forbes MD 10/01/2024 11:12 AM EDT
[2024-10-01 13:45] LABS: Estimated Average Glucose 235 mg/dL; Hemoglobin A1c % 9.8 % (<6.0)
[2024-10-01 13:46] LABS: Alanine Aminotransferase 71 U/L (0-40); Alkaline Phosphatase 45 U/L (39-117); Aspartate Amino Transferase 42 U/L (5-37); Bilirubin Direct 0.3 mg/dL (0.0-0.5); Bilirubin Total 1.3 mg/dL (0.0-1.0); Cholesterol 220 mg/dL (<200); HDL Cholesterol 31 mg/dL (>40); LDL Cholesterol Calculated 151 mg/dL (<100); Total Protein 7.3 g/dL (6.5-8.0); Triglycerides 192 mg/dL (<150)
[2024-10-01 13:51] LABS: Alanine Aminotransferase 71 U/L (0-40); Albumin Level 4.1 g/dL (3.5-5.0); Alkaline Phosphatase 44 U/L (39-117); Aspartate Amino Transferase 37 U/L (5-37); Bilirubin Direct 0.3 mg/dL (0.0-0.5); Bilirubin Total 1.3 mg/dL (0.0-1.0); Cholesterol 224 mg/dL (<200); HDL Cholesterol 32 mg/dL (>40); LDL Cholesterol Calculated 154 mg/dL (<100); Total Protein 7.3 g/dL (6.5-8.0); Triglycerides 193 mg/dL (<150)
[2024-10-02 03:33] LABS: Hepatitis A Antibody IgM 0.14 Index (0-0.79); ~Hepatitis A Antibody IgM Nonreactive (Nonreactive)
[2024-10-02 03:33] LABS: HBc Num1 0.07 S/CO (0.00-0.79); HBsAGNum1 0.32 S/CO (0.00-0.99); Hepatitis B Core Antibody Nonreactive (Nonreactive); Hepatitis B Surface Antigen Negative (Negative)
[2024-10-09 18:48] LABS: FIB-ALT 57 U/L (9-46); FIB-Alpha-2-Macroglobulin 199 mg/dL (106-279); FIB-Apolipoprotein A1 127 mg/dL (94-176); FIB-GGT 31 U/L (3-90); FIB-Haptoglobin 132 mg/dL (43-212); Liver Fibrosis Score 0.29; Liver Fibrosis Stage F1; Nec Inflam Act Grade A1; Nec Inflam Act Score 0.33
== END 2024-10-01 10:19 | disposition home or self-care (01) ==
LOC: HO.US 10:18
PROVIDERS: PCP Physician Assistant Medical; Visit Provider Nurse Practitioner Family
DX: R79.89 Other specified abnormal findings of blood chemistry (principal); R94.5 Abnormal results of liver function studies; E78.5 Hyperlipidemia, unspecified; E11.9 Type 2 diabetes mellitus without complications; K76.0 Fatty (change of) liver, not elsewhere classified; I25.10 Atherosclerotic heart disease of native coronary artery without angina pectoris; R74.01 Elevation of levels of liver transaminase levels
CPT/HCPCS: 36415; 76700; 76981; 80061; 80076; 81596; 83036; 86704; 86709; 87340

== ENCOUNTER → 2024-10-01 10:22 | Outpatient (BNV) | payer BC, SELFPAY | PROVIDERS: PCP Physician Assistant Medical; Visit Provider Radiology Diagnostic Radiology | DX: R16.2 Hepatomegaly with splenomegaly, not elsewhere classified (principal) | CPT/HCPCS: 76981 ==

== ENCOUNTER 2024-10-18 15:41 | Outpatient (AMB) | payer BC, SELFPAY ==
--- NOTE | 2024-10-18 15:45 | A.OFFPC_ITS ---
Vital Signs 10/18/24 15:54 Height 5 ft 10 in Weight 300 lb 8 oz BMI 43.1 BP 128/82 Blood Pressure Location Rt brachial Position Sitting Respiration 14 Pulse 89 Pulse Source Pulse Oximeter Temp 98.2 F Temp Source Temporal Artery Scan Pulse Oximetry (%) 97 Oxygen Delivery Method Room Air Intake Visit Reasons: diabetic treatment plan and lab results Intake Note: Gucci presents in the office to go over his diabetic treatment plan and lab results. Allergies povidone-iodine [From Betadine] Allergy (Severe, Verified 10/18/24 15:48) Hives animal dander Allergy (Intermediate, Verified 10/18/24 15:48) Hives Tobacco use date assessed: 10/18/24 Dental Screening Dental Screen Date: 10/18/24 Did you have a dental visit in the last 12 months?: No Did you have a dental problem in the last 6 months where you did not have access to dental care?: No Was dental information given to patient?: Patient declined HPI HPI Comments History of Present Illness Details This is a 34-year-old male with a past medical history of obesity, a heart murmur, fatigue and snoring, recently diagnosed type 2 diabetes, mixed dyslipidemia, hepatomegaly and hepatic steatosis presenting for follow up. Patient endorses right shoulder pain for the last few months. It bothers him when he lifts his arm up. He is right-handed. 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 He does a lot of repetitive movements with it. No trauma, numbness, tingling, neck pain, weakness. He has not tried any treatments. Type 2 diabetes-the patient was diagnosed after screening labs demonstrated hemoglobin A1c of 9.3% on 03/11/2024. Hemoglobin A1c is up to 9.8%. He has not been checking blood sugars regularly. He had an eye exam in 2023. He has a family history of diabetes. He can not take metformin since this contains povidone (Betadine allergic), and he was taking glipizide ER 5 mg daily, but he stopped taking it 2 months ago. He says he has been busy. He says he is not great it taking meds. He does not want injectable medications however. He was prescribed atorvastatin, but he has not been taking this for the last month or so. His cholesterol did improve despite noncompliance with it. The patient had an echocardiogram completed on 04/26/2024 which showed no significant valve disease, and ejection fraction was normal. On 03/06/2024 his total bilirubin and ALT were mildly elevated at 1.4 and 55, respectively. Negative testing for hepatitis a, B and C. Normal AST and alkaline phosphatase. He had a liver ultrasound which showed hepatic steatosis and hepatomegaly. Patient is seeing Gastroenterology. He does not drink alcohol. He has a lot of red meat in his diet, but he has cut back since our last appointment. He still having it about 3 times per week. He is trying to eat more chicken and vegetables. He has continued to decline referral to a dietitian, hospital educator and endocrinology based on his busy schedule. He had a sleep study which showed obstructive sleep apnea. He was started on CPAP. I referred to sleep Medicine, but he never heard back from them. ROS: Constitutional: No unexplained weight loss, fever, chills or night sweats. Eyes: No vision changes, blurry vision, double vision, eye pain, eye redness, eye discharge. Respiratory: No shortness of breath, cough or sputum production. Cardiovascular: No chest pain, chest pressure or chest discomfort. No palpitations or pedal edema. Gastrointestinal: No anorexia, nausea, vomiting or diarrhea. No abdominal pain Neurologic: No headache, dizziness, syncope, unilateral weakness, ataxia, numbness or tingling in the extremities. Physical exam: Constitutional: Alert, in no distress. Eyes: Pupils are equal, round and reactive to light. Extraocular muscles intact. Neck: Supple, Full range of motion. No lymphadenopathy. No palpable thyroid masses. Respiratory: Clear to auscultation. Cardiovascular: S1 S2 regular. 2/6 systolic murmur. Shoulders: Full range of motion. Nontender to palpation. Right empty can maneuver produces right shoulder pain. No erythema or swelling or obvious deformity. Neurologic: No focal neurological deficits. Extremities: Warm and well perfused. No clubbing, cyanosis or edema. Psychiatric: Normal mood and affect [facility] Medical History (Updated 10/18/24 @ 17:21 by KERLINE Montemayor) Right shoulder pain NATTY (obstructive sleep apnea) Hepatomegaly Hepatic steatosis Type II diabetes mellitus Mixed dyslipidemia Abnormal liver function IFG (impaired fasting glucose) Fatigue Snoring Routine physical examination Screening for cardiovascular condition Heart murmur Pilonidal cyst Surgical History History of inguinal hernia repair, bilateral History of wisdom tooth extraction History of ankle surgery Family History Sister Diabetes Mental health disorder Mother Diabetes Maternal Grandmother Alcoholism Paternal Grandmother Cancer Social History (Updated 10/18/24 @ 15:50 by Paris Ni MA) Household Members: Family Housing: Apartment Alcohol intake: never Patient Tobacco Use Status: Never used Tobacco e-Cigarette/Vaping Use: Never Used service: No Current occupational status: employed 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 1. Little interest or pleasure in doing things: not at all 2. Feeling down, depressed, or hopeless: several days 3. Trouble falling or staying asleep, or sleeping too much: more than half the days 4. Feeling tired or having little energy: more than half the days 5. Poor appetite or overeating: not at all 6. Feeling bad about yourself - or that you are a failure or have let yourself or your family down: several days 7. Trouble concentrating on things, such as reading the newspaper or watching television: several days 8. Moving or speaking so slowly that other people could have noticed. Or the opposite - being so fidgety or restless that you have been moving around a lot more than usual: more than half the days 9. Thoughts that you would be better off or of hurting yourself in some way: not at all Total score: 9 Depression Screening Interpretation: Positive Depression Screening Done: Yes 60085 - PHQ-9 Billing: Patient declined-do not bill Source: Developed by Drs. Curtis Khan, Josephine Briceno, Adair Jewell and colleagues, with an educational jeffery from [employer]. Thrive Questionnaire Date Thrive assessed: 10/18/24 I am a: Patient What is your living situation today?: I have a steady place to live Within the past 12 months, did the food you bought not last and you didn't have the money to get more?: Never true Within the past 12 months, did you worry whether your food would run out before you got money to buy more?: Never true Do you have trouble paying for medicines?: No Do you have trouble getting transportation to medical appointments?: No Do you have trouble paying your heating and electricity bill?: No Do you have trouble taking care of your child, family member or friend?: No Do you have trouble with day-to-day activities such as bathing, preparing meals, shopping, managing finances, etc.?: No Are you currently unemployed and looking for a job?: No Are you interested in more education?: No Please select the resources that you would like help with: None Currently or been in a relationship where the following occur: I choose not to answer THRIVE Score: 0 AUDIT C Alcohol Use Questionnaire (AUDIT-C) 1. How often do you have a drink containing alcohol?: Never Total Score: 0 JAN-7 AMB Questionnaire JAN-7 Date JAN - 7 assessed: 10/18/24 Feeling nervous, anxious, or on edge: 1 = Several days Not being able to stop or control worryin = Several days Worrying too much about different things: 1 = Several days Trouble relaxin = Not at all Being so restless that it is hard to sit still: 2 = More than half the days Becoming easily annoyed or irritable: 0 = Not at all Feeling afraid as if something awful might happen: 1 = Several days Total JAN-7 score (0-4 normal; 5-9 mild; 10-14 moderate; 15-21 severe): 6 Source: Developed by Drs. Curtis Khan, Josephine Briceno, Adair Jewell and colleagues, with an educational jeffery from [employer]. JAN-7 Assessment Billing JAN-7 Assessment Tool: JAN-7 Assessment 56342 ACT Questionnaire In the past 4 weeks, how much of the time did your asthma keep you from getting as much done at work, school or at home?: All of the time Score: 1 Physical exam (Primary Care) Vital Signs: Last Vital Signs Temp 98.2 F 10/18/24 15:54 Pulse 89 10/18/24 15:54 Resp 14 10/18/24 15:54 BP 128/82 10/18/24 15:54 Pulse Ox 97 10/18/24 15:54 Oxygen Delivery Method Room Air 10/18/24 15:54 BMI result Body Mass Index 43.1 Tobacco/Smoking Status: Tobacco use Status Tobacco use date assessed 10/18/24 10/18/24 15:57 Patient Tobacco Use Status Never used Tobacco 10/18/24 15:50 e-Cigarette/Vaping Use Never Used 10/18/24 15:50 PHQ-9: PHQ-9 Score PHQ-9: Total score 9 10/18/24 16:30 Depression Screening Interpretation: Positive Thrive Assessment: Date of Thrive Assessment Date Thrive assessed 10/18/24 10/18/24 15:57 Currently or been in a relationship where the following occur: I choose not to answer Coding Level of Care Code Est Pt Level 4 (26120) Complex EM visit Add On G2211 Diagnoses Type 2 diabetes mellitus without complication, without long-term current use of insulin E11.9 Diabetes mellitus half-way insulin use: without half-way use Diabetes mellitus complication status: without complication Hepatic steatosis K76.0 Hepatomegaly R16.0 Mixed dyslipidemia E78.2 Right shoulder pain M25.511 NATTY (obstructive sleep apnea) G47.33 Additional Codes JAN-7 Assessment Billing - JAN-7 Assessment Tool: JAN-7 Assessment 77429 ([id number]) Assessment & Plan Assessment & Plan (1) Type II diabetes mellitus: Code(s): E11.9 - Type 2 diabetes mellitus without complications Category: Medical Qualifiers: Diabetes mellitus half-way insulin use: without half-way use Diabetes mellitus complication status: without complication Qualified Code(s): E11.9 - T ype 2 diabetes mellitus without complications Plan: Discussed pathophysiology of Type II Diabetes Mellitus with the patient in detail.? I explained the half-way risks and complications associated with uncontrolled diabetes including nephropathy, neuropathy, peripheral vascular disease, retinopathy, increased risk of heart disease and stroke.? Discussed lifestyle modification with the patient. Recommended 30 minutes of moderately vigorous exercise 5 days per week to promote weight loss. Recommended annual diabetic eye exam. Recommended importance of checking blood sugars regularly to review at appointments. Reminded patient to bring glucometer to appointments. I would like him to be on a GLP 1 given obesity, diabetes and hepatic steatosis however Rybelsus contains povidone, and he is allergic to Betadine (hives), and he refuses to take injectable medications. Declines referral to hospital educator, dietitian and endocrinology. Increase glipizide to 10 mg daily and add Januvia 50 mg daily. Ran Januvia through daily meds, and this does not contain povidone iodine. (2) Hepatic steatosis: Code(s): K76.0 - Fatty (change of) liver, not elsewhere classified Category: Medical Plan: Followed by Gastroenterology. We will treat dyslipidemia-see below. Lifestyle modifications reviewed again. Avoid alcohol. Decrease cholesterol rich foods in diet. Increase lean proteins and fibrous fruits and vegetables. (3) Hepatomegaly: Code(s): R16.0 - Hepatomegaly, not elsewhere classified Category: Medical (4) Mixed dyslipidemia: Code(s): E78.2 - Mixed hyperlipidemia Category: Medical Plan: Patient will restart atorvastatin 20 mg daily. Side effects and administration reviewed. He had 1 mildly elevated liver enzyme which is related to hepatic steatosis, and treating his cholesterol outweighs the risks given concomitant diabetes, morbid obesity and need to reduce cardiovascular risk. Statin may actually help with hepatic steatosis. (5) Right shoulder pain: Code(s): M25.511 - Pain in right shoulder Category: Medical Plan: Possible rotator cuff tendonitis. He will try home exercises. Declined referral to PT. If symptoms do not improve recommended imaging and referral to Orthopedics. (6) NATTY (obstructive sleep apnea): Code(s): G47.33 - Obstructive sleep apnea (adult) (pediatric) Category: Medical Plan: Recommended weight loss, avoidance of alcohol and avoid sleeping supine. On CPAP, needs sleep medicine consult. New referral placed urgently. Plan Follow up in 1 month. Orders: Referrals Sleep Medicine Referral G47.33 - Obstructive sleep apnea (adult) (pediatric) Medications: New glipizide ER 10 mg PO DAILY 90 tabs 1RF sitagliptin phosphate (Januvia) 50 mg PO DAILY 90 tabs 0RF sitagliptin phosphate (Januvia) 50 mg PO DAILY 90 tabs 0RF glipizide ER 10 mg PO DAILY 90 tabs 1RF Refilled atorvastatin 20 mg PO BEDTIME 90 tabs 1RF
[2024-10-18 15:54] VITALS: BP 128/82; PULSE 89; RESP 14; TEMP 36.8; O2SAT 97; BMI 43.1
--- OUTSIDE RECORDS SUMMARY | 2024-10-18 18:05 | XMS_ITS | Encounter Summary ---
Author Organization [facility] Address [address] [place] [address] Phone Care Team Providers Care Warp Splitter Name Role Phone Unavailable Primary Care Provider Unavailabl e Encounter Details Date Type Department Care Team (Late st Contact Info) Description 04/08/2011 Documentation EM Family Medicine [address] [place] [address] Family Medicine, Physician [facility], [facility] [place] [phone] Social History Tobacco Use Types Packs/Day Years Used Date Smoking Tobacco: Never Assessed Sex and Gender Information Value Date Recorded Sex Assigned at Not on file Legal Sex Male 4:36 PM EDT Gender Identity Not on file Sexual Orientation Not on file documented as of this encounter Plan of Treatment Not on file documented as of this encounter Visit Diagnoses Not on filedocumented in this encounter
--- OUTSIDE RECORDS SUMMARY | 2024-10-18 18:05 | XMS_ITS | Encounter Summary ---
Author Organization [facility] Address [address] [place] [address] Phone Care Team Providers Care Scalper Operator Name Role Phone Unavailable Primary Care Provider Unavailabl e Encounter Details Date Type Department Care Team (Late st Contact Info) Description 02/20/2017 Conversion Encounter [facility] - [address] [phone] Social History Tobacco Use Types Packs/Day Years [...]
--- OUTSIDE RECORDS SUMMARY | 2024-10-18 18:05 | XMS_ITS | Encounter Summary ---
Author Organization [facility] Address [address] [place] [address] Phone Care Team Providers Care Playground Equipment Erector Name Role Phone Unavailable Primary Care Provider Unavailabl e Encounter Details Date Type Department Care Team (Late st Contact Info) Description 04/08/2011 Documentation EM Family Medicine [address] [place] [address] Family Medicine, Physician [facility] [place] [phone] Social History Tobacco Use Types Packs/Day Years [...]
--- OUTSIDE RECORDS SUMMARY | 2024-10-18 18:05 | XMS_ITS | Encounter Summary ---
Author Organization [facility] Address [address] [place] [address] Phone Care Team Providers Care Form Grader Operator Name Role Phone Unavailable Primary Care Provider Unavailabl e Encounter Details Date Type Department Care Team (Late st Contact Info) Description 04/08/2011 Documentation EM Family Medicine [address] [place] [address] Family Medicine, Physician [facility] [place] [phone] Social History Tobacco Use Types Packs/Day Years [...]
--- OUTSIDE RECORDS SUMMARY | 2024-10-18 18:05 | XMS_ITS | Encounter Summary ---
Author Organization [facility] Address [address] [place] [address] Phone Care Team Providers Care Nitroglycerin Distributor Name Role Phone Unavailable Primary Care Provider Unavailabl e Encounter Details Date Type Department Care Team (Late st Contact Info) Description 04/08/2011 Documentation EM Family Medicine [address] [place] [address] Family Medicine, Physician [facility] [place], [place] [phone] Social History Tobacco Use Types Packs/Day Years [...]
--- OUTSIDE RECORDS SUMMARY | 2024-10-18 18:05 | XMS_ITS | Encounter Summary ---
Author Organization [facility] Address [address] [place] [phone] Phone Care Team Providers Care Fitter'S Assistant Name Role Phone Unavailable Primary Care Provider Unavailabl e Encounter Details Date Type Department Care Team (Late st Contact Info) Description 04/08/2011 Documentation EM Family Medicine [address] [place] [address] Family Medicine, Physician [facility] [place], [place] [phone] Social History Tobacco Use Types Packs/Day Years [...]
--- OUTSIDE RECORDS SUMMARY | 2024-10-18 18:05 | XMS_ITS | Encounter Summary ---
Author Organization [facility] Address [address] [place] [address] Phone Care Team Providers Care Tank Car Reconditioner Name Role Phone Unavailable Primary Care Provider Unavailabl e Encounter Details Date Type Department Care Team (Late st Contact Info) Description 04/08/2011 Documentation EM Family Medicine [address] [place] [address] Family Medicine, Physician [facility] [place] [phone] Social History Tobacco Use Types Packs/Day Years [...]
--- OUTSIDE RECORDS SUMMARY | 2024-10-18 18:05 | XMS_ITS | Encounter Summary ---
Author Organization [facility] Address [address] [place] [phone] Phone Care Team Providers Care Collar Starcher Name Role Phone Unavailable Primary Care Provider Unavailabl e Encounter Details Date Type Department Care Team (Late st Contact Info) Description 04/08/2011 Documentation EM Family Medicine [address] [place] [address] Family Medicine, Physician [facility], [facility] [place], [place] [phone] Social History Tobacco Use Types Packs/Day Years [...]
--- OUTSIDE RECORDS SUMMARY | 2024-10-18 18:05 | XMS_ITS | Clinical Summary ---
Author Organization [facility] Address [address] [place] [address] Phone Care Team Providers Care Communication Electronic Technician Name Role Phone Unavailable Primary Care Provider Unavailabl e Immunizations Immunization Administration Dates Next Due DTP 12/06/1993, 1,1989,09/05,1989 Hep B, ped/adol 08/31/2002,04/12/2002,03/11/2002 Hib (PRP-T) 01/25/1991 MMR 03/11/2002,01/25/1991 Meningococcal Conj (Menactra) MCV4P 11/05/2007 OPV 12/06/1993, 1,1989,05/15 Td (adult) (MBL), 2 Lf tetan us toxoid, PF, adsorbed 03/11/2002 Tdap 11/05/2007 Family History Relation Name Status Comments Half-Sister Alive Half sister (M) : Alive and well, Alive and well Mother Alive Mother: Asthma Other Family history of Strabismus/amblyopia, Family history of Diabetes mellitus, Family history of Migraines, Family history of Asthma, Family history of Obesity Sister Alive Sister: Excema, Alive and well Social History Tobacco Use Types Packs/Day Years Used Date Smoking Tobacco: Never Assessed Sex and Gender Information Value Date Recorded Sex Assigned at Not on file Legal Sex Male 4:36 PM EDT Gender Identity Not on file Sexual Orientation Not on file Last Filed Vital Signs Vital Sign Reading Time Taken Comments Blood Pressure - - Pulse - - Temperature 34.8 ??C (94.7 ??F) 07/16/2010 12:[address] Respiratory Rate - - Oxygen Saturation - - Inhaled Oxygen Concentration - - Weight 112 kg (247 lb) 07/16/2010 12:00 AM EST Height - - Body Mass Index - - Plan of Treatment Health Maintenance Due Date Last Done Comments Varicella Vaccines (1 of 2 - 13+ 2-dose series) 04/08/2002 DTaP,Tdap,and Td Vaccines (7 - Td or Tdap) 11/04/2017 11/05/2007, 03/11/2002, 12/06/1993, Additional history exists Influenza Vaccines (#1) 2024 COVID-19 Vaccine ( season) 2024 HIB Vaccines Completed 01/25/1991 IPV Vaccines Completed 12/06/1993, 01/05, 1989, Additional history exists MMR Vaccines Completed 03/11/2002, 01/25/1991 Hepatitis B Vaccines Completed 08/31/2002, 04/12/2002, 03/11/2002 Meningococcal Vaccine Completed 11/05/2007 HPV Vaccines Aged Out No longer eligi ble based on patient's age to complete this topic Hepatitis A Vaccines Aged Out No long er eligible based on patient's age to complete this topic Men B Vaccine Aged Out No longer elig ible based on patient's age to complete this topic Pneumococcal Vaccine Aged Out No long er eligible based on patient's age to complete this topic
--- OUTSIDE RECORDS SUMMARY | 2024-10-18 18:05 | XMS_ITS | Encounter Summary ---
Author Organization [facility] Address [address] [place] [phone] Phone Care Team Providers Care Heel Padder Name Role Phone Unavailable Primary Care Provider Unavailabl e Encounter Details Date Type Department Care Team (Late st Contact Info) Description 04/08/2011 Documentation EM Family Medicine [address] [place] [address] Family Medicine, Physician [facility] [place] [phone] Social History Tobacco Use Types Packs/Day Years [...]
--- OUTSIDE RECORDS SUMMARY | 2024-10-18 18:05 | XMS_ITS | Encounter Summary ---
Author Organization [facility] Address [address] [place] [address] Phone Care Team Providers Care Academy Education Director Name Role Phone Unavailable Primary Care Provider Unavailabl e Encounter Details Date Type Department Care Team (Late st Contact Info) Description 04/08/2011 Documentation EM Family Medicine [address] [place] [address] Family Medicine, Physician [facility] [place], [place] [phone] Social History Tobacco Use Types Packs/Day Years [...]
== END 2024-10-18 16:35 | disposition home or self-care (01) ==
LOC: HO.HMCFM 15:41
PROVIDERS: PCP Physician Assistant Medical; Visit Provider Physician Assistant Medical
DX: E11.9 Type 2 diabetes mellitus without complications (principal); K76.0 Fatty (change of) liver, not elsewhere classified; R16.0 Hepatomegaly, not elsewhere classified; E78.2 Mixed hyperlipidemia; M25.511 Pain in right shoulder; G47.33 Obstructive sleep apnea (adult) (pediatric)

== ENCOUNTER → 2024-10-18 15:41 | Outpatient (BNVA) | payer BC, SELFPAY | PROVIDERS: PCP Physician Assistant Medical; Visit Provider Physician Assistant Medical | DX: E11.9 Type 2 diabetes mellitus without complications (principal); K76.0 Fatty (change of) liver, not elsewhere classified; R16.0 Hepatomegaly, not elsewhere classified; E78.2 Mixed hyperlipidemia; M25.511 Pain in right shoulder; G47.33 Obstructive sleep apnea (adult) (pediatric); Z79.84 Long term (current) use of oral hypoglycemic drugs | CPT/HCPCS: 96127 ==

== ENCOUNTER 2024-11-23 15:22 | Outpatient (AMB) | payer BC, SELFPAY ==
--- NOTE | 2024-11-23 15:24 | MHC.OFFVIS ---
Vital Signs 11/23/24 15:35 Height 5 ft 10 in Weight 300 lb BMI 43.0 BP 126/66 Blood Pressure Location Rt brachial Position Sitting Pulse 78 Pulse Source Pulse Oximeter Pulse Oximetry (%) 96 Oxygen Delivery Method Room Air Intake Visit Reasons: review lab Intake Note: ESTABLISHED PATIENT for mgmt of liver abn. Labs done. CC; Pt denies any GI sx or concerns at this time. Labs done 10.01.2024 Nanotechnology Engineering Technician Required: No Accompanied by: Self / Same As Patient Allergies povidone-iodine [From Betadine] Allergy (Severe, Verified 11/23/24 15:31) Hives animal dander Allergy (Intermediate, Verified 11/23/24 15:31) Hives HPI HPI review lab: Details: LAST VISIT: Hepatomegaly Hepatic steatosis Mixed dyslipidemia Abnormal liver function Plan Hepatomegaly, hepatic steatosis most likely not alcoholic fatty liver. We will repeat liver enzymes as well as his lipid panel. Will repeat A1c and if see if it is trending down. Patient should probably be on a different diabetic management to help with weight loss. Possibly GLP 1. No known family history of thyroid cancer or pancreatitis. Will send him for ultrasound and check liver fibrosis panel. Patient was encouraged to eat food low in fat, low-salt, low carbs and high-protein diet. Try to lose weight and exercise. Patient will return in 3 months, sooner on as needed basis. He is agreeable to this plan and verbalizes understanding of instructions. He was given the opportunity to ask questions and all questions answered. ? Thank you for allowing me to participate in his care Orders Orders Liver Fibrosis Pnl Today K76.0 Lipid Panel Today I25.10 Liver Panel Today R74.01 Hemoglobin A1c Today Z83.3 US abdomen comp w elastography Today TODAY'S VISIT Patient is here today for follow-up and to discuss lab results and ultrasound results. Patient reports that he has no GI concerning symptoms, however she reports episode of constipation when he was stressed out after was told that his ran to will be increased by 50%. Patient had to moved to his parent's house for the time being. Patient denies melena, hematochezia, unintentional weight loss or ribbon like stools. Denies any dyspepsia, dysphagia or odynophagia. Lab results discussed patient as well as liver ultrasound with elastography. Slight improvement in his liver enzymes. Patient reports that he is trying to avoid certain dietary triggers. He is trying to eat food low fat. Patient is requesting to list of food that he could follow. [facility] Medical History Right shoulder pain NATTY (obstructive sleep apnea) Hepatomegaly Hepatic steatosis Type II diabetes mellitus Mixed dyslipidemia Abnormal liver function IFG (impaired fasting glucose) Fatigue Snoring Routine physical examination Screening for cardiovascular condition Heart murmur Pilonidal cyst Surgical History History of inguinal hernia repair, bilateral History of wisdom tooth extraction History of ankle surgery Family History Sister Diabetes Mental health disorder Mother Diabetes Maternal Grandmother Alcoholism Paternal Grandmother Cancer Social History Household Members: Family Housing: Apartment Alcohol intake: never Patient Tobacco Use Status: Never used Tobacco e-Cigarette/Vaping Use: Never Used service: No Current occupational status: employed 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 Cognitive needs: No Hearing needs: Yes (occasion ) Vision needs: Yes (wear glasses) Review of Systems Const Denies weight gain and Denies weight loss ENT Reports no additional complaints, Denies dysphagia and Denies odynophagia Card Reports no additional complaints Resp Reports no additional complaints GI Denies abdominal pain, Denies belching, Denies melena, Denies bloating, Denies change in bowel habits, Denies dysphagia, Denies excessive flatus, Denies dyspepsia, Denies heartburn, Denies diarrhea, Denies loose stools, Denies nausea, Denies odynophagia and Denies vomiting Reports no additional complaints Musc Reports no additional complaints Neuro Reports no additional complaints Psych Reports no additional complaints Endo Reports no additional complaints Physical Exam Vital Signs: Last Vital Signs Pulse 78 11/23/24 15:35 BP 126/66 11/23/24 15:35 Pulse Ox 96 11/23/24 15:35 Oxygen Delivery Method Room Air 11/23/24 15:35 BMI result Body Mass Index 43.0 Const General: healthy appearing and no acute distress Nutritional Appearance: obese Orientation/consciousness: patient oriented x3 Resp Effort & Inspection: normal respiratory effort, able to speak in complete sentences, no tracheal deviation and symmetric chest movement Auscultation: clear to auscultation bilaterally Cardio Rate: regular rate GI Inspection: Yes normal to inspection, No distended and Yes obesity Palpation (GI): Soft to palpation, not firm, nontender and No hepatosplenomegaly present Auscultation: normal bowel sounds General: Yes no CVA tenderness Back/Spine/Pelvis Back: no CVA tenderness Skin General skin exam: elasticity normal, turgor normal and dry skin Neuro General: patient oriented x3 Psych Appearance: grossly normal Mental Status: mental status grossly normal Assessment & Plan Assessment & Plan (1) Hepatomegaly: Code(s): R16.0 - Hepatomegaly, not elsewhere classified Category: Medical (2) Hepatic steatosis: Code(s): K76.0 - Fatty (change of) liver, not elsewhere classified Category: Medical (3) Abnormal liver function: Code(s): R94.5 - Abnormal results of liver function studies Category: Medical (4) Mixed dyslipidemia: Code(s): E78.2 - Mixed hyperlipidemia Category: Medical Plan Discussed with patient avoid certain types of food. We did discuss the type of diet he should be following and list of food recommend that given to patient. Patient was also encouraged to try to lose weight and exercise. He will repeat ultrasound and liver panel in 6 months before his next appointment. He is agreeable to this plan and verbalizes understanding of instructions. He was given the opportunity to ask questions and all questions answered. Thank you for allowing me to participate in his care Orders: Orders US abdomen coelho w elastography 6 Months K76.0 - Fatty (change of) liver, not elsewhere classified Liver Panel 6 Months R74.01 - Elevation of levels of liver transaminase levels Coding Level of Care Code Est Pt Level 3 (41911) Diagnoses Hepatomegaly R16.0 Hepatic steatosis K76.0 Abnormal liver function R94.5 Mixed dyslipidemia E78.2 Time Spent (min) 25 Comment 50 minutes spent with patient and additional 10 minutes spent reviewing her records
[2024-11-23 15:35] VITALS: BP 126/66; PULSE 78; O2SAT 96; BMI 43.0
--- OUTSIDE RECORDS SUMMARY | 2024-11-23 16:27 | XMS_ITS | Encounter Summary ---
Author Organization [facility] Address [address] [place] [phone] Phone Care Team Providers Care Diabetes Clinical Manager Name Role Phone Unavailable Primary Care Provider Unavailabl e Encounter Details Date Type Department Care Team (Late st Contact Info) Description 04/08/2011 Documentation [facility] [address] [place] [address] Family Medicine, Physician [facility] [place], [place] [phone] Social History Tobacco Use Types Packs/Day Years [...]
--- OUTSIDE RECORDS SUMMARY | 2024-11-23 16:27 | XMS_ITS | Encounter Summary ---
Author Organization [facility] Address [address] [place] [address] Phone Care Team Providers Care Durability Engineer Name Role Phone Unavailable Primary Care Provider Unavailabl e Encounter Details Date Type Department Care Team (Late st Contact Info) Description 02/20/2017 Conversion Encounter [facility] - [address] [phone] Social History Tobacco Use Types Packs/Day Years [...]
--- OUTSIDE RECORDS SUMMARY | 2024-11-23 16:27 | XMS_ITS | Encounter Summary ---
Author Organization [facility] Address [address] [place] [phone] Phone Care Team Providers Care Production Graphic Designer Name Role Phone Unavailable Primary Care Provider Unavailabl e Encounter Details Date Type Department Care Team (Late st Contact Info) Description 04/08/2011 Documentation [facility] [address] [place] [address] Family Medicine, Physician [facility] [place], [place] [phone] Social History Tobacco Use Types Packs/Day Years [...]
--- OUTSIDE RECORDS SUMMARY | 2024-11-23 16:27 | XMS_ITS | Encounter Summary ---
Author Organization [facility] Address [address] [place] [address] Phone Care Team Providers Care Tie Inspector Name Role Phone Unavailable Primary Care Provider Unavailabl e Encounter Details Date Type Department Care Team (Late st Contact Info) Description 04/08/2011 Documentation [facility] [address] [place] [address] Family Medicine, Physician [facility] [place], [place] [phone] Social History Tobacco Use Types Packs/Day Years [...]
--- OUTSIDE RECORDS SUMMARY | 2024-11-23 16:27 | XMS_ITS | Encounter Summary ---
Author Organization [facility] Address [address] [place] [address] Phone Care Team Providers Care Contractor General Engineering Name Role Phone Unavailable Primary Care Provider Unavailabl e Encounter Details Date Type Department Care Team (Late st Contact Info) Description 04/08/2011 Documentation [facility] [address] [place] [address] Family Medicine, Physician [facility] [place], [place] [phone] Social History Tobacco Use Types Packs/Day Years [...]
--- OUTSIDE RECORDS SUMMARY | 2024-11-23 16:27 | XMS_ITS | Encounter Summary ---
Author Organization [facility] Address [address] [place] [address] Phone Care Team Providers Care Workcell Operator Name Role Phone Unavailable Primary Care Provider Unavailabl e Encounter Details Date Type Department Care Team (Late st Contact Info) Description 04/08/2011 Documentation [facility] [address] [place] [address] Family Medicine, [facility]ician [facility] [place] [phone] Social History Tobacco Use Types Packs/Day Years [...]
--- OUTSIDE RECORDS SUMMARY | 2024-11-23 16:27 | XMS_ITS | Encounter Summary ---
Author Organization [facility] Address [address] [place] [address] Phone Care Team Providers Care New Accounts Representative Name Role Phone Unavailable Primary Care Provider Unavailabl e Encounter Details Date Type Department Care Team (Late st Contact Info) Description 04/08/2011 Documentation [facility] [address] [place] [address] Family Medicine, Physician [facility] [place], [place] [phone] Social History Tobacco Use Types Packs/Day Years [...]
--- OUTSIDE RECORDS SUMMARY | 2024-11-23 16:27 | XMS_ITS | Encounter Summary ---
Author Organization [facility] Address [address] [place] [address] Phone Care Team Providers Care Retail Solar Advisor Name Role Phone Unavailable Primary Care Provider Unavailabl e Encounter Details Date Type Department Care Team (Late st Contact Info) Description 04/08/2011 Documentation [facility] [address] [place] [address] Family Medicine, Physician [facility] [place] [phone] Social History Tobacco Use Types Packs/Day Years [...]
--- OUTSIDE RECORDS SUMMARY | 2024-11-23 16:27 | XMS_ITS | Encounter Summary ---
Author Organization [facility] Address [address] [place] [phone] Phone Care Team Providers Care Golf Ball Cover Treater Name Role Phone Unavailable Primary Care Provider Unavailabl e Encounter Details Date Type Department Care Team (Late st Contact Info) Description 04/08/2011 Documentation [facility] [address] [place] [address] Family Medicine, Physician [facility] [place], [place] [phone] Social History Tobacco Use Types Packs/Day Years [...]
--- OUTSIDE RECORDS SUMMARY | 2024-11-23 16:27 | XMS_ITS | Encounter Summary ---
Author Organization [facility] Address [address] [place] [address] Phone Care Team Providers Care Stock Mixer Name Role Phone Unavailable Primary Care Provider Unavailabl e Encounter Details Date Type Department Care Team (Late st Contact Info) Description 04/08/2011 Documentation [facility] [address] [place] [address] Family Medicine, Physician [facility] [place], [place] [phone] Social History Tobacco Use Types Packs/Day Years [...]
--- OUTSIDE RECORDS SUMMARY | 2024-11-23 16:27 | XMS_ITS | Clinical Summary ---
Author Organization [facility] Address [address] [place] [phone] Phone Care Team Providers Care Specimen Preparation Assistant Name Role Phone Unavailable Primary Care [...]
== END 2024-11-23 15:49 | disposition home or self-care (01) ==
LOC: HO.HGI 15:23
PROVIDERS: PCP Physician Assistant Medical; Visit Provider Nurse Practitioner Family
DX: R16.0 Hepatomegaly, not elsewhere classified (principal); K76.0 Fatty (change of) liver, not elsewhere classified; R94.5 Abnormal results of liver function studies; E78.2 Mixed hyperlipidemia
CPT/HCPCS: 99213

== ENCOUNTER 2024-12-06 08:38 | Outpatient (REF) | payer BC, SELFPAY ==
--- OUTSIDE RECORDS SUMMARY | 2024-12-06 08:57 | XMS_ITS | Encounter Summary ---
Author Organization [facility] Address [address] [place] [address] Phone Care Team Providers Care Floor Scraper Name Role Phone Unavailable Primary Care Provider Unavailabl e Encounter Details Date Type Department Care Team (Late st Contact Info) Description 04/08/2011 Documentation [facility] [address] [place] [address] Family Medicine, Physician [facility] [place] [phone] Social History Tobacco Use Types Packs/Day Years [...]
[2024-12-06 13:37] LABS: Alanine Aminotransferase 51 U/L (0-40); Aspartate Amino Transferase 27 U/L (5-37); Total Protein 7.4 g/dL (6.5-8.0)
[2024-12-07 11:56] LABS: Appearance Urine Clear; Color Urine Yellow; Glucose Urine UA >=1000 mg/dL (Negative); Leukocyte Esterase Urine Negative (Negative); Nitrite Urine Negative (Negative); Specific Gravity - Urine 1.015 (1.005-1.025); UMIC TRIGGER UA YES; Urine Blood Negative (Negative); Urine Ketones Negative (Negative); Urine Protein Negative (Neg-Trace)
[2024-12-07 11:58] LABS: Bacteria Urine None Seen (None Seen); Hyaline Casts Urine 0-2 /LPF (0-2); RBC Urine 0-2 /HPF (0-2); Squamous Epithelial Cell Urine 0-2 /HPF (0-2); WBC Urine 0-5 /HPF (0-5)
== END 2024-12-06 08:39 | disposition home or self-care (01) ==
LOC: HO.HMGCLDS 08:38
PROVIDERS: PCP Physician Assistant Medical; Visit Provider Physician Assistant Medical
DX: R16.0 Hepatomegaly, not elsewhere classified (principal); K76.0 Fatty (change of) liver, not elsewhere classified; E78.2 Mixed hyperlipidemia; E11.9 Type 2 diabetes mellitus without complications; E66.9 Obesity, unspecified; N39.44 Nocturnal enuresis; Z68.41 Body mass index [BMI] 40.0-44.9, adult; Z12.5 Encounter for screening for malignant neoplasm of prostate
CPT/HCPCS: 36415; 81001; 83036; 84155; 84450; 84460; 87086

== ENCOUNTER 2024-12-06 15:44 | Outpatient (AMB) | payer BC, SELFPAY ==
--- NOTE | 2024-12-06 16:00 | MHC.PC.OV ---
Vital Signs 12/06/24 16:06 12/06/24 17:27 Height 5 ft 10 in Weight 307 lb 2 oz BMI 44.1 BP 120/68 Blood Pressure Location Rt brachial Position Sitting Pulse 89 Pulse Source Pulse Oximeter Temp 79.6 F L 97.6 F Temp Source Temporal Artery Scan Pulse Oximetry (%) 96 Oxygen Delivery Method Room Air Intake Visit Reasons: Type II Diabetes Intake Note: Gucci presents in the office today for his Type II diabtes. Allergies povidone-iodine [From Betadine] Allergy (Severe, Verified 12/06/24 16:06) Hives animal dander Allergy (Intermediate, Verified 12/06/24 16:06) Hives Medication List - Last Reconciled 12/06/24 by KERLINE Montemayor atorvastatin 20 mg PO BEDTIME cetirizine 10 mg PO DAILY CPAP (CPAP Machine/Device) As directed. Auto CPAP mode with pressure setting of 6-20 cmH20 glipizide ER 10 mg PO DAILY melatonin 10 mg PO BEDTIME PRN sitagliptin phosphate (Januvia) 100 mg PO DAILY Tobacco use date assessed: 12/06/24 Dental Screening Dental Screen Date: 12/06/24 Did you have a dental visit in the last 12 months?: Yes Did you have a dental problem in the last 6 months where you did not have access to dental care?: No Was dental information given to patient?: Patient has dentist HPI HPI Comments History of Present Illness Details This is a 34-year-old male with a past medical history of obesity, a heart murmur, fatigue and snoring, type 2 diabetes, mixed dyslipidemia, hepatomegaly and hepatic steatosis presenting for follow up. Type 2 diabetes-A1c 8.8% down from 9.8%. He was diagnosed with diabetes in 2023. He has not been checking blood sugars regularly. He had an eye exam in 2023. He has a family history of diabetes. He can not take metformin since this contains povidone (Betadine allergic). He has declined GLP 1. Currently taking glipizide extended release 10 mg daily and Januvia 50 mg a day. Patient says he has been taking atorvastatin consistently for 4 weeks. The patient had an echocardiogram completed on 04/26/2024 which showed no significant valve disease, and ejection fraction was normal. On 03/06/2024 his total bilirubin and ALT were mildly elevated at 1.4 and 55, respectively. Negative testing for hepatitis a, B and C. Normal AST and alkaline phosphatase. He had a liver ultrasound which showed hepatic steatosis and hepatomegaly. Patient is seeing Gastroenterology. He does not drink alcohol. He has cut back on an unhealthy foods. LFTs drawn this morning have improved. He is eating more lean protein and vegetables. He has continued to decline referral to a dietitian, critical care educator and endocrinology based on his busy schedule. He had a sleep study which showed obstructive sleep apnea. He was started on CPAP, but he has not been using it. He brings up an additional concern today. Patient says that he has been bed wetting. It happens 4-5 days at a week for as long as he can remember. Patient does not think he ever achieved nighttime dryness as a child. He never brought it up because he was very embarrassed about it. Patient denies diagnosis of mental health conditions. Denies feeling depressed or anxious. He does not drink alcohol or caffeine. He restricts water before bed. ROS: Constitutional: No unexplained weight loss, fever, chills or night sweats. Eyes: No vision changes, blurry vision, double vision, eye pain, eye redness, eye discharge. Respiratory: No shortness of breath, cough or sputum production. Cardiovascular: No chest pain, chest pressure or chest discomfort. No palpitations or pedal edema. Gastrointestinal: No anorexia, nausea, vomiting or diarrhea. No abdominal pain : No hematuria, dysuria, malodorous urine or suprapubic discomfort Neurologic: No headache, dizziness, syncope, unilateral weakness, ataxia, numbness or tingling in the extremities. Physical exam: Constitutional: Alert, in no distress. Eyes: Pupils are equal, round and reactive to light. Extraocular muscles intact. Neck: Supple, Full range of motion. No lymphadenopathy. No palpable thyroid masses. Respiratory: Clear to auscultation. Cardiovascular: S1 S2 regular. 2/6 systolic murmur. : No CVA tenderness Neurologic: No focal neurological deficits. Extremities: Warm and well perfused. No clubbing, cyanosis or edema. Psychiatric: Normal mood and affect [facility] Medical History (Updated 12/06/24 @ 17:19 by KERLINE Montemayor) Nocturnal enuresis Right shoulder pain NATTY (obstructive sleep apnea) Hepatomegaly Hepatic steatosis Type II diabetes mellitus Mixed dyslipidemia Abnormal liver function IFG (impaired fasting glucose) Fatigue Snoring Routine physical examination Screening for cardiovascular condition Heart murmur Pilonidal cyst Surgical History History of inguinal hernia repair, bilateral History of wisdom tooth extraction History of ankle surgery Family History Sister Diabetes Mental health disorder Mother Diabetes Maternal Grandmother Alcoholism Paternal Grandmother Cancer Social History (Updated 12/06/24 @ 16:02 by Paris Ni MA) Household Members: Family Housing: Apartment Alcohol intake: never Patient Tobacco Use Status: Never used Tobacco e-Cigarette/Vaping Use: Never Used Second Hand Smoke Exposure: No service: No Current occupational status: employed 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 Cognitive needs: No Hearing needs: Yes (occasion ) Vision needs: Yes (wear glasses) Questionnaire Thrive Questionnaire Date Thrive assessed: 10/18/24 I am a: Patient What is your living situation today?: I have a place to live, but I am worried about losing it in the future Within the past 12 months, did the food you bought not last and you didn't have the money to get more?: Never true Within the past 12 months, did you worry whether your food would run out before you got money to buy more?: Never true Do you have trouble paying for medicines?: No Do you have trouble getting transportation to medical appointments?: No Do you have trouble paying your heating and electricity bill?: No Do you have trouble taking care of your child, family member or friend?: No Do you have trouble with day-to-day activities such as bathing, preparing meals, shopping, managing finances, etc.?: No Are you currently unemployed and looking for a job?: No Are you interested in more education?: Yes Please select the resources that you would like help with: None Currently or been in a relationship where the following occur: No concerns reported THRIVE Score: 1 AUDIT C Alcohol Use Questionnaire (AUDIT-C) 1. How often do you have a drink containing alcohol?: Never 3. How often do you have six or more drinks on one occasion?: Never Total Score: 0 Score Reviewed/Action Taken: No JAN-7 AMB Questionnaire JAN-7 Date JAN - 7 assessed: 10/18/24 Source: Developed by DrsEdison Khan, Josephine Briceno, Adair Jewell and colleagues, with an educational jeffery from [employer]. Physical exam (Primary Care) Vital Signs: Last Vital Signs Temp 79.6 F L 12/06/24 16:06 Pulse 89 12/06/24 16:06 BP 120/68 12/06/24 16:06 Pulse Ox 96 12/06/24 16:06 Oxygen Delivery Method Room Air 12/06/24 16:06 BMI result Body Mass Index 44.1 Tobacco/Smoking Status: Tobacco use Status Tobacco use date assessed 12/06/24 12/06/24 16:03 Patient Tobacco Use Status Never used Tobacco 12/06/24 16:02 e-Cigarette/Vaping Use Never Used 12/06/24 16:02 Thrive Assessment: Date of Thrive Assessment Date Thrive assessed 10/18/24 12/06/24 16:01 Currently or been in a relationship where the following occur: No concerns reported Results AMB Hemoglobin A1c AMB Hemoglobin A1c 8.8 % Last Edit by Paris Ni MA on 12/06/24 16:21 Results Reviewed Results Reviewed: Laboratory Last Values Hgb A1c (Clinic) 8.8 % (4.0-6.0) H 12/06/24 16:19 Coding Level of Care Code Est Pt Level 4 (28605) Complex EM visit Add On G2211 Diagnoses Type 2 diabetes mellitus without complication, without long-term current use of insulin E11.9 Diabetes mellitus penitentiary insulin use: without penitentiary use Diabetes mellitus complication status: without complication Hepatic steatosis K76.0 Hepatomegaly R16.0 Mixed dyslipidemia E78.2 NATTY (obstructive sleep apnea) G47.33 Nocturnal enuresis N39.44 Assessment & Plan Assessment & Plan (1) Type II diabetes mellitus: Code(s): E11.9 - Type 2 diabetes mellitus without complications Category: Medical Qualifiers: Diabetes mellitus penitentiary insulin use: without penitentiary use Diabetes mellitus complication status: without complication Qualified Code(s): E11.9 - Type 2 diabetes mellitus without complications Plan: Discussed pathophysiology of Type II Diabetes Mellitus with the patient in detail.? I explained the penitentiary risks and complications associated with uncontrolled diabetes including nephropathy, neuropathy, peripheral vascular disease, retinopathy, increased risk of heart disease and stroke.? Discussed lifestyle modification with the patient. Recommended 30 minutes of moderately vigorous exercise 5 days per week to promote weight loss. Recommended annual diabetic eye exam. Recommended importance of checking blood sugars regularly to review at appointments. Reminded patient to bring glucometer to appointments. I would like him to be on a GLP 1 given obesity, diabetes and hepatic steatosis however Ryjacksus contains povidone, and he is allergic to Betadine (hives), and he refuses to take injectable medications. Declines referral to critical care educator, dietitian and endocrinology. Continue glipizide ER 10 mg daily and increase Januvia to 100 mg daily. (2) Hepatic steatosis: Code(s): K76.0 - Fatty (change of) liver, not elsewhere classified Category: Medical Plan: Followed by Gastroenterology. Treating diabetes and dyslipidemia. Lifestyle modifications reviewed again. Avoid alcohol. Decrease cholesterol rich foods in diet. Increase lean proteins and fibrous fruits and vegetables. (3) Hepatomegaly: Code(s): R16.0 - Hepatomegaly, not elsewhere classified Category: Medical (4) Mixed dyslipidemia: Code(s): E78.2 - Mixed hyperlipidemia Category: Medical Plan: Patient has been taking atorvastatin 20 mg daily consistently for a month. Recheck labs in 4 weeks. Side effects and administration reviewed. (5) NATTY (obstructive sleep apnea): Code(s): G47.33 - Obstructive sleep apnea (adult) (pediatric) Category: Medical Plan: Recommended weight loss, avoidance of alcohol and avoid sleeping supine. Use CPAP consistently. (6) Nocturnal enuresis: Code(s): N39.44 - Nocturnal enuresis Category: Medical Plan: Denies incontinence issues. Sounds like he has been struggling with primary nocturnal enuresis since childhood. Urine dip with glycosuria. Sent for urinalysis and culture. Check renal function, PSA, retroperitoneal ultrasound for obstructive pathology. Discussed diabetes and sleep apnea contribute to this. Encouraged to work on glycemic control. Encouraged to use CPAP. Continue efforts at weight loss. Declines referral to weight management. We can consider a trial of desmopressin and referral to Urology pending results. Plan Routine follow up in 3 months. Orders: Orders Urine Culture Today R32 - Unspecified urinary incontinence, R39.9 - Unspecified symptoms and signs involving the genitourinary system AMB Hemoglobin A1c Today E11.9 - Type 2 diabetes mellitus without complications UA w Microscopic Today R32 - Unspecified urinary incontinence, R39.9 - Unspecified symptoms and signs involving the genitourinary system AMB Urinalysis Dipstick Today R32 - Unspecified urinary incontinence, Z13.9 - Encounter for screening, unspecified Comprehensive Met. Panel Today R32 - Unspecified urinary incontinence Lipid Panel Today E78.5 - Hyperlipidemia, unspecified, R32 - Unspecified urinary incontinence Prostate Specific Antigen Today R32 - Unspecified urinary incontinence, Z12.5 - Encounter for screening for malignant neoplasm of prostate US retroperitoneal comp Today N39.44 - Nocturnal enuresis Medications: New sitagliptin phosphate (Januvia) 100 mg PO DAILY 90 tabs 3RF Discontinued sitagliptin phosphate (Januvia) Discontinued Reason: Doctor's Order 50 mg PO DAILY 90 tabs 0RF
[2024-12-06 16:06] VITALS: BP 120/68; PULSE 89; TEMP 26.4; O2SAT 96; BMI 44.1
[2024-12-06 17:27] VITALS: TEMP 36.4
== END 2024-12-06 16:44 | disposition home or self-care (01) ==
LOC: HO.HMCFM 15:44
PROVIDERS: PCP Physician Assistant Medical; Visit Provider Physician Assistant Medical
DX: E11.9 Type 2 diabetes mellitus without complications (principal); K76.0 Fatty (change of) liver, not elsewhere classified; R16.0 Hepatomegaly, not elsewhere classified; E78.2 Mixed hyperlipidemia; G47.33 Obstructive sleep apnea (adult) (pediatric); N39.44 Nocturnal enuresis

== ENCOUNTER → 2024-12-07 12:00 | Outpatient (BNV) | payer BC, SELFPAY | PROVIDERS: PCP Physician Assistant Medical; Visit Provider Physician Assistant Medical | DX: Z13.9 Encounter for screening, unspecified (principal); R32 Unspecified urinary incontinence | CPT/HCPCS: 81002 ==

== ENCOUNTER 2024-12-23 15:23 | Outpatient (AMB) | payer BC, SELFPAY ==
[2024-12-23 15:32] VITALS: BP 122/64; PULSE 77; O2SAT 97; BMI 44.2
--- NOTE | 2024-12-23 15:32 | A.OFFVIS_ITS ---
Vital Signs 12/23/24 15:32 Height 5 ft 10 in Weight 308 lb 4 oz BMI 44.2 BP 122/64 Blood Pressure Location Lt brachial Position Sitting Pulse 77 Pulse Source Pulse Oximeter Pulse Oximetry (%) 97 Oxygen Delivery Method Room Air Intake Visit Reasons: INP - Obstructive Sleep Apnea Intake Note: Patient presents ELECTRICAL HIGH TENSION TESTER NATTY. He had a sleep study which showed obstructive sleep apnea.(AHI-18, Supine AHI-60, REYNALDO-79%) He was started on CPAP and has not been using. Patient states he was very uncomfortable at night. Allergies povidone-iodine (From Betadine) Allergy (Severe, Verified 12/23/24 15:35) Hives animal dander Allergy (Intermediate, Verified 12/23/24 15:35) Hives HPI Comments Details: 34 y/o male presents for sleep evaluation referred to us by Deyanira Ochoa, pcp. He was diagnosed with severe NATTY AHI 18 and, AHI was 60 in lateral position with obstructions and snoring, O2 Reynaldo was 79% and under 88% for 4min. Recommendations: start cpap at [id number] and assess for hypoxemia once established on cpap therapy. 05/2024 Transthoracic Echocardiogram c/w heart murmur. He says he did not sleep well during the night of his study and does not think he has NATTY. We discussed evaluating him with an overngiht in lab PSG. He says his [employer] is [employer] and they have given him the run around. He denies RLS symptoms. He denies headaches. His mood fluctuates and memory is poor, mainly his stm. Denies smoking and alcohol. [facility] Medical History Nocturnal enuresis Right shoulder pain NATTY (obstructive sleep apnea) Hepatomegaly Hepatic steatosis Type II diabetes mellitus Mixed dyslipidemia Abnormal liver function IFG (impaired fasting glucose) Fatigue Snoring Routine physical examination Screening for cardiovascular condition Heart murmur Pilonidal cyst Surgical History History of inguinal hernia repair, bilateral History of wisdom tooth extraction History of ankle surgery Family History Sister Diabetes Mental health disorder Mother Diabetes Maternal Grandmother Alcoholism Paternal Grandmother Cancer Social History Household Members: Family Housing: Apartment Alcohol intake: never Patient Tobacco Use Status: Never used Tobacco e-Cigarette/Vaping Use: Never Used Second Hand Smoke Exposure: No service: No Current occupational status: employed 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 Cognitive needs: No Hearing needs: Yes (occasion ) Vision needs: Yes (wear glasses) Physical Exam Vital Signs: Last Vital Signs Pulse 77 12/23/24 15:32 BP 122/64 12/23/24 15:32 Pulse Ox 97 12/23/24 15:32 Oxygen Delivery Method Room Air 12/23/24 15:32 BMI result Body Mass Index 44.2 Const General: cooperative, comfortable and no acute distress Orientation/consciousness: patient oriented x3 HEENT Face and sinus: Yes face symmetric Throat: Yes other ([place] 3) Neck Neck: Yes full ROM Resp Effort & Inspection: normal respiratory effort and able to speak in complete sentences Neuro General: patient oriented x3 Cognition (Neuro): normal cognition Gait exam (Neuro): Normal gait present Motor exam (neuro): 5/5 motor strength present throughout and Normal motor muscle tone present throughout Psych Appearance: well kempt Thought process: Normal thought process present Thought content: Normal thought content present Results Reviewed Results Reviewed: 04/2024 HST AHI is 19 and suppine AHI is 60. Lateral AHI is 4. Maximum obstructions in suppine. O2 destas to 79% and under 88% for 16 min with mild nocturnal hypoxemia. Assessment & Plan Assessment & Plan (1) Snoring: Code(s): R06.83 - Snoring Category: Medical (2) NATTY (obstructive sleep apnea): Code(s): G47.33 - Obstructive sleep apnea (adult) (pediatric) Category: Medical (3) Excessive daytime sleepiness: Code(s): G47.19 - Other hypersomnia Category: Medical Plan PSG excessive fatigue and snoring. Labs r/o deficiencies. Weight management Orders: Orders TSH reflex Free T4 12/23/24 G47.19 - Other hypersomnia Methylmalonic Acid 12/23/24 G47.19 - Other hypersomnia, G47.9 - Sleep disorder, unspecified, R53.83 - Other fatigue RT PSG in-lab sleep study 12/23/24 G47.19 - Other hypersomnia, R06.83 - Snoring Ferritin 12/23/24 G47.19 - Other hypersomnia Vitamin B12 and Folate 12/23/24 G47.19 - Other hypersomnia Vitamin D 25-OH Total 12/23/24 G47.19 - Other hypersomnia Homocysteine 12/23/24 G47.19 - Other hypersomnia, G47.9 - Sleep disorder, unspecified, R53.83 - Other fatigue Patient Instructions: Sleep Hygiene provided: set a scheduled bedtime and wake time to help regulate the circadian rhythm and balance the release of pituitary hormones. Sleep in a dark room, temperatures below 68 degrees, and no devices n bed. Limit caffeinated products 6 hours prior to bed, and limit fluids 2-4 hours prior to bed. Gentle night yoga, diffusing essential oils, and playing soft music can be relaxing. Sleep compliance requested from Иван. Coding Level of Care Code New Pt Level 4 (65493) Diagnoses Snoring R06.83 NATTY (obstructive sleep apnea) G47.33 Excessive daytime sleepiness G47.19 Time Spent (min) 25 Comment Evaluation Sleep Questionnaire Difficulty falling asleep: Yes Difficulty staying asleep?: No Number of arousals: 1-2 Snoring: Yes Witnessed apneas: Yes Gasping arousals: Yes Nocturia: No GERD: No Vivid dreams: Yes Acting out dreams: No Abnormal behavior in sleep: No Abnormal movements in sleep: No Morning headaches: No Excessive daytime sleepiness: Yes Daytime naps: No Restless legs: No Hallucinations: No Sleep paralysis: Yes Drop attacks: No Sleep Study: Yes CPAP: Yes
--- OUTSIDE RECORDS SUMMARY | 2024-12-23 16:37 | XMS_ITS | Encounter Summary ---
Author Organization [facility] Address [address] [place] [phone] Phone Care Team Providers Care Registered Public Health Nurse Name Role Phone Unavailable Primary Care Provider Unavailabl e Encounter Details Date Type Department Care Team (Late st Contact Info) Description 04/08/2011 Documentation EM Family Medicine [address] [place] [address] Family Medicine, Physician [facility] [place] [id number] Social History Tobacco Use Types Packs/Day Years [...]
== END 2024-12-23 16:08 | disposition home or self-care (01) ==
PROVIDERS: PCP Physician Assistant Medical; Visit Provider Physician Assistant Medical
DX: R06.83 Snoring (principal); G47.33 Obstructive sleep apnea (adult) (pediatric); G47.19 Other hypersomnia
CPT/HCPCS: 99204

== ENCOUNTER → 2024-12-23 15:23 | Outpatient (BNVA) | payer BC, SELFPAY | PROVIDERS: PCP Physician Assistant Medical; Visit Provider Physician Assistant Medical ==

== ENCOUNTER 2025-01-12 14:44 | Outpatient (REF) | payer BC, SELFPAY ==
--- NOTE | ~2025-01-12 | US_ITS ---
EXAMINATION: US RETROPERITONEUM HISTORY: N39.44 - Nocturnal enuresis TECHNIQUE: Real-time grayscale ultrasound imaging of the kidneys was performed and images were reviewed. COMPARISON: Correlation is made with an abdominal ultrasound dated 10/01/1984. FINDINGS: Right kidney: The right kidney measures 12.8 x 5.8 x 6.8 cm. Renal parenchymal echotexture and thickness are normal. There are no masses. There is no hydronephrosis or renal calculi. Left Kidney: The left kidney measures 14.4 x 6.5 x 7.8 cm. Renal parenchymal echotexture and thickness are normal. There are no masses. There is no hydronephrosis or renal calculi. The urinary bladder is unremarkable. Bilateral ureteral jets are identified. Before voiding, the urinary bladder measured 14.8 x 8.8 x 9.4 cm, for an estimated volume of 639 mL. After voiding, the urinary bladder measured 4.2 x 2.7 x 3.4 cm, for an estimated volume of 20.3 mL. The prostate is not identified. US/US retroperitoneal comp IMPRESSION: Unremarkable retroperitoneal ultrasound. Post void bladder residual of 20.3 mL. Electronically signed by: Curtis Forbes MD 01/13/2025 07:07 AM EDT
--- OUTSIDE RECORDS SUMMARY | 2025-01-12 15:13 | XMS_ITS | Encounter Summary ---
Author Organization [facility] Address [address] [place] [phone] Phone Care Team Providers Care Core Mounter Name Role Phone Unavailable Primary Care Provider Unavailabl e Encounter Details Date Type Department Care Team (Late st Contact Info) Description 04/08/2011 Documentation EM Family Medicine [address] [place] [address] Family Medicine, Physician [facility] [place] [id number] Social History Tobacco Use Types Packs/Day Years [...]
== END 2025-01-12 14:45 | disposition home or self-care (01) ==
LOC: HO.HMGCX 14:44
PROVIDERS: PCP Physician Assistant Medical; Visit Provider Physician Assistant Medical
DX: N39.44 Nocturnal enuresis (principal)
CPT/HCPCS: 76770

== ENCOUNTER → 2025-01-12 15:03 | Outpatient (BNV) | payer BC, SELFPAY | PROVIDERS: PCP Physician Assistant Medical; Visit Provider Radiology Diagnostic Radiology | DX: N39.44 Nocturnal enuresis (principal) | CPT/HCPCS: 76770 ==

== ENCOUNTER → 2025-01-28 19:00 | Outpatient (REF) | payer BC, SELFPAY | LOC: HO.SL 19:00 | PROVIDERS: PCP Physician Assistant Medical; Visit Provider Physician Assistant Medical | DX: G47.33 Obstructive sleep apnea (adult) (pediatric) (principal); G47.19 Other hypersomnia; R06.03 Acute respiratory distress | CPT/HCPCS: 95811 ==

== ENCOUNTER 2025-03-14 14:41 | Outpatient (AMB) | payer BC, SELFPAY ==
--- NOTE | 2025-03-14 14:52 | A.OFFPC_ITS ---
Vital Signs 03/14/25 14:59 Height 5 ft 10 in Weight 310 lb 6 oz BMI 44.5 BP 112/86 Blood Pressure Location Lt brachial Position Sitting Respiration 16 Pulse 88 Pulse Source Pulse Oximeter Temp 97.9 F Temp Source Temporal Artery Scan Pulse Oximetry (%) 96 Oxygen Delivery Method Room Air Intake Visit Reasons: diabetes 3m fu Intake Note: Gucci presents in the office today for a 3 month follow to diabetes. Allergies povidone-iodine (From Betadine) Allergy (Severe, Verified 03/14/25 14:58) Hives animal dander Allergy (Intermediate, Verified 03/14/25 14:58) Hives Medication List - Last Reconciled 03/15/25 by KERLINE Montemayor atorvastatin 20 mg PO BEDTIME cetirizine 10 mg PO DAILY CPAP (CPAP Machine/Device) As directed. Auto CPAP mode with pressure setting of 6-20 cmH20 glipizide ER 10 mg PO DAILY melatonin 10 mg PO BEDTIME PRN sitagliptin phosphate (Januvia) 100 mg PO DAILY Tobacco use date assessed: 03/14/25 Dental Screening Dental Screen Date: 03/14/25 Did you have a dental visit in the last 12 months?: Yes Did you have a dental problem in the last 6 months where you did not have access to dental care?: No Was dental information given to patient?: Patient has dentist HPI HPI Comments History of Present Illness Details This is a 35-year-old male with a past medical history of obesity, a heart murmur, fatigue and snoring, type 2 diabetes, mixed dyslipidemia, hepatomegaly and hepatic steatosis presenting for follow up. Type 2 diabetes-A1c 10.2% He was diagnosed with diabetes in 2023. He has not been checking blood sugars. He has a family history of diabetes. He can not take metformin since this contains povidone (Betadine allergic). He is not following a low carb diet, but he has cut back on sugar. He eats 1-2 servings of carbs with most meals. Drinks water. No alcohol. Nosmoker. He continues to decline insulin and GLP 1 medications. Currently prescribed glipizide extended release 10 mg daily and Januvia 100 mg daily. He has only been taking them once per week. Patient says that takes atorvastatin once or twice per week. The patient had an echocardiogram completed on 04/26/2024 which showed no significant valve disease, and ejection fraction was normal. Continues to decline CGM. Denies hypoglycemia, and he declines prescription for glucose tablets and glucose gel. Patient reports his last eye exam was in January 2025. Denies retinopathy. On 03/06/2024 his total bilirubin and ALT were mildly elevated at 1.4 and 55, respectively. Negative testing for hepatitis a, B and C. Normal AST and alkaline phosphatase. He had a liver ultrasound which showed hepatic steatosis and hepatomegaly. Patient is seeing Gastroenterology. He does not drink alcohol. He continues to decline referral to a dietitian and environmental educator, but he is open to seeing endocrinology at this point. NATTY-started CPAP last week. Followed by sleep medicine. ROS: Constitutional: No unexplained weight loss, fever, chills or night sweats. Eyes: No vision changes, blurry vision, double vision, eye pain, eye redness, eye discharge. Respiratory: No shortness of breath, cough or sputum production. Cardiovascular: No chest pain, chest pressure or chest discomfort. No palpitations or pedal edema. Gastrointestinal: No anorexia, nausea, vomiting or diarrhea. No abdominal pain Neurologic: No headache, dizziness, syncope, unilateral weakness, ataxia, numbness or tingling in the extremities. Physical exam: Constitutional: Alert, in no distress. Eyes: Pupils are equal, round and reactive to light. Extraocular muscles intact. Neck: Supple, Full range of motion. No lymphadenopathy. No palpable thyroid masses. Respiratory: Clear to auscultation. Cardiovascular: S1 S2 regular. I/6 systolic murmur. Neurologic: No focal neurological deficits. Extremities: Warm and well perfused. No clubbing, cyanosis or edema. Psychiatric: Normal mood and affect [facility] Medical History (Updated 03/15/25 @ 08:51 by KERLINE Montemayor) Elevated blood pressure reading Nocturnal enuresis Right shoulder pain NATTY (obstructive sleep apnea) Hepatomegaly Hepatic steatosis Type II diabetes mellitus Mixed dyslipidemia Abnormal liver function IFG (impaired fasting glucose) Fatigue Snoring Routine physical examination Screening for cardiovascular condition Heart murmur Pilonidal cyst Surgical History History of inguinal hernia repair, bilateral History of wisdom tooth extraction History of ankle surgery Family History Sister Diabetes Mental health disorder Mother Diabetes Maternal Grandmother Alcoholism Paternal Grandmother Cancer Social History (Updated 03/14/25 @ 14:54 by Paris Ni MA) Household Members: Family Housing: Apartment Alcohol intake: never Patient Tobacco Use Status: Never used Tobacco e-Cigarette/Vaping Use: Never Used Second Hand Smoke Exposure: No service: No Current occupational status: employed 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 Cognitive needs: No Hearing needs: Yes (occasion ) Vision needs: Yes (wear glasses) Questionnaire Thrive Questionnaire Date Thrive assessed: 10/18/24 I am a: Patient What is your living situation today?: I have a place to live, but I am worried about losing it in the future Within the past 12 months, did the food you bought not last and you didn't have the money to get more?: Never true Within the past 12 months, did you worry whether your food would run out before you got money to buy more?: Never true Do you have trouble paying for medicines?: No Do you have trouble getting transportation to medical appointments?: No Do you have trouble paying your heating and electricity bill?: No Do you have trouble taking care of your child, family member or friend?: No Do you have trouble with day-to-day activities such as bathing, preparing meals, shopping, managing finances, etc.?: No Are you currently unemployed and looking for a job?: No Are you interested in more education?: Yes Please select the resources that you would like help with: None Currently or been in a relationship where the following occur: No concerns reported THRIVE Score: 1 JAN-7 AMB Questionnaire JAN-7 Date JAN - 7 assessed: 10/18/24 Source: Developed by Drs. Curtis Khan, Josephine Briceno, Adair Jewell and colleagues, with an educational jeffery from [employer]. Physical exam (Primary Care) Vital Signs: Last Vital Signs Temp 97.9 F 03/14/25 14:59 Pulse 88 03/14/25 14:59 Resp 16 03/14/25 14:59 BP 112/86 03/14/25 14:59 Pulse Ox 96 03/14/25 14:59 Oxygen Delivery Method Room Air 03/14/25 14:59 BMI result Body Mass Index 44.5 Tobacco/Smoking Status: Tobacco use Status Tobacco use date assessed 03/14/25 03/14/25 14:56 Patient Tobacco Use Status Never used Tobacco 03/14/25 14:56 e-Cigarette/Vaping Use Never Used 03/14/25 14:56 Thrive Assessment: Date of Thrive Assessment Date Thrive assessed 10/18/24 03/14/25 14:56 Currently or been in a relationship where the following occur: No concerns reported Results AMB Hemoglobin A1c AMB Hemoglobin A1c 10.2 % Last Edit by Paris Ni MA on 03/14/25 15:18 Results Reviewed Results Reviewed: Laboratory Last Values Hgb A1c (Clinic) 10.2 % (4.0-6.0) H 03/14/25 15:04 Coding Level of Care Code Est Pt Level 4 (99315) Complex EM visit Add On G2211 Diagnoses Type 2 diabetes mellitus without complication, without long-term current use of insulin E11.9 Diabetes mellitus complication status: without complication Diabetes mellitus [facility] insulin use: without [facility] use Hepatic steatosis K76.0 Mixed dyslipidemia E78.2 NATTY (obstructive sleep apnea) G47.33 Elevated blood pressure reading R03.0 Assessment & Plan Assessment & Plan (1) Type II diabetes mellitus: Code(s): E11.9 - Type 2 diabetes mellitus without complications Category: Medical Qualifiers: Diabetes mellitus complication status: without complication Diabetes mellitus assistant terminal manager insulin use: without assistant terminal manager use Qualified Code(s): E11.9 - Type 2 diabetes mellitus without complications Plan: The patient has uncontrolled type 2 diabetes secondary to noncompliance with his treatment plan. Discussed pathophysiology of Type II Diabetes Mellitus with the patient in detail.? I explained the assistant terminal manager risks and complications associated with uncontrolled diabetes including nephropathy, neuropathy, peripheral vascular disease, retinopathy, increased risk of heart disease and stroke.? Discussed lifestyle modification with the patient. Recommended 30 minutes of moderately vigorous exercise 5 days per week to promote weight loss. He continues to decline referral to dietitian and environmental educator. I have referred him to endocrinology. Diabetic eye exam up-to-date per patient. Recommended importance of checking blood sugars regularly to review at appointments. Reminded patient to bring glucometer to appointments. He continues to decline a CGM. I would like him to be on a GLP 1 given obesity, diabetes and hepatic steatosis however Rybelsus contains povidone, and he is allergic to Betadine (hives), and he refuses to take injectable medications. He declines insulin. Patient says he will restart glipizide ER 10 mg daily and Januvia 100 mg daily. (2) Hepatic steatosis: Code(s): K76.0 - Fatty (change of) liver, not elsewhere classified Category: Medical Plan: Followed by Gastroenterology. Treating diabetes and dyslipidemia. Lifestyle modifications reviewed again. Avoid alcohol. Decrease cholesterol rich foods in diet. Increase lean proteins and fibrous fruits and vegetables. (3) Mixed dyslipidemia: Code(s): E78.2 - Mixed hyperlipidemia Category: Medical Plan: Stressed importance of taking atorvastatin 20 mg daily. Recommended Medi terranean diet. (4) NATTY (obstructive sleep apnea): Code(s): G47.33 - Obstructive sleep apnea (adult) (pediatric) Category: Medical Plan: Recommended weight loss, avoidance of alcohol and avoid sleeping supine. Use CPAP consistently. (5) Elevated blood pressure reading: Code(s): R03.0 - Elevated blood-pressure reading, without diagnosis of hypertension Category: Medical Plan: Recommended low sodium diet and avoidance of caffeine. Recheck at next appointment. Consider GIOVANY or ARB or BP remains elevated. Plan Routine follow up in 3 months. Orders: Orders AMB Hemoglobin A1c 03/14/25 E11.9 - Type 2 diabetes mellitus without complications Microalbumin, Random (w Creat) 03/14/25 E11.9 - Type 2 diabetes mellitus without complications Referrals Endocrinology Referral E11.9 - Type 2 diabetes mellitus without complications
[2025-03-14 14:59] VITALS: BP 112/86; PULSE 88; RESP 16; TEMP 36.6; O2SAT 96; BMI 44.5
--- OUTSIDE RECORDS SUMMARY | 2025-03-14 17:02 | XMS_ITS | Encounter Summary ---
Author Organization [facility] Address [address] [place] [phone] Phone Care Team Providers Care Train Control Technician Name Role Phone Unavailable Primary Care Provider Unavailabl e Encounter Details Date Type Department Care Team (Late st Contact Info) Description 04/08/2011 Documentation [facility] [address] [place] [address] Family Medicine, Physician [facility] [place] [phone] Social History Tobacco Use Types Packs/Day Years [...]
--- OUTSIDE RECORDS SUMMARY | 2025-03-14 17:02 | XMS_ITS | Encounter Summary ---
Author Organization [facility] Address [address] [place] [address] Phone Care Team Providers Care Central Office Frame Wirer Name Role Phone Unavailable Primary Care Provider Unavailabl e Encounter Details Date Type Department Care Team (Late st Contact Info) Description 04/08/2011 Documentation [facility] [address] [place] [address] Family Medicine, Physician [facility] [place] [phone] Social History Tobacco Use Types Packs/Day Years [...]
--- OUTSIDE RECORDS SUMMARY | 2025-03-14 17:02 | XMS_ITS | Encounter Summary ---
Author Organization [facility] Address [address] [place] [address] Phone Care Team Providers Care Director Product Safety Name Role Phone Unavailable Primary Care Provider Unavailabl e Encounter Details Date Type Department Care Team (Late st Contact Info) Description 04/08/2011 Documentation [facility] [address] [place] [address] Family Medicine, Physician [facility] [place], [place] [phone] Social History Tobacco Use Types Packs/Day Years [...]
--- OUTSIDE RECORDS SUMMARY | 2025-03-14 17:02 | XMS_ITS | Encounter Summary ---
Author Organization [facility] Address [address] [place] [address] Phone Care Team Providers Care Senior Stereo Compiler Team Lead Name Role Phone Unavailable Primary Care Provider Unavailabl e Encounter Details Date Type Department Care Team (Late st Contact Info) Description 04/08/2011 Documentation [facility] [address] [place] [address] Family Medicine, Physician [facility] [place], [place] [phone] Social History Tobacco Use Types Packs/Day Years [...]
--- OUTSIDE RECORDS SUMMARY | 2025-03-14 17:02 | XMS_ITS | Encounter Summary ---
Author Organization [facility] Address [address] [place] [address] Phone Care Team Providers Care Client Liaison Name Role Phone Unavailable Primary Care Provider Unavailabl e Encounter Details Date Type Department Care Team (Late st Contact Info) Description 04/08/2011 Documentation [facility] [address] [place] [address] Family Medicine, Physician [facility] [place], [place] [phone] Social History Tobacco Use Types Packs/Day Years [...]
--- OUTSIDE RECORDS SUMMARY | 2025-03-14 17:02 | XMS_ITS | Encounter Summary ---
Author Organization [facility] Address [address] [place] [phone] Phone Care Team Providers Care Tobacco Prizer Name Role Phone Unavailable Primary Care Provider Unavailabl e Encounter Details Date Type Department Care Team (Late st Contact Info) Description 02/20/2017 Conversion Encounter [facility] - [address] [phone] Social History Tobacco Use Types Packs/Day Years [...]
--- OUTSIDE RECORDS SUMMARY | 2025-03-14 17:02 | XMS_ITS | Encounter Summary ---
Author Organization [facility] Address [address] [place] [phone] Phone Care Team Providers Care Deputy Sheriff K9 Handler Name Role Phone Unavailable Primary Care Provider Unavailabl e Encounter Details Date Type Department Care Team (Late st Contact Info) Description 04/08/2011 Documentation [facility] [address] [place] [address] Family Medicine, Physician [facility] [place], [place] [phone] Social History Tobacco Use Types Packs/Day Years [...]
--- OUTSIDE RECORDS SUMMARY | 2025-03-14 17:02 | XMS_ITS | Encounter Summary ---
Author Organization [facility] Address [address] [place] [phone] Phone Care Team Providers Care Dye Beck Reel Operator Name Role Phone Unavailable Primary Care Provider Unavailabl e Encounter Details Date Type Department Care Team (Late st Contact Info) Description 04/08/2011 Documentation [facility] [address] [place] [address] Family Medicine, Physician [facility] [place], [place] [phone] Social History Tobacco Use Types Packs/Day Years [...]
--- OUTSIDE RECORDS SUMMARY | 2025-03-14 17:02 | XMS_ITS | Encounter Summary ---
Author Organization [facility] Address [address] [place] [address] Phone Care Team Providers Care Object Oriented Programmer Name Role Phone Unavailable Primary Care Provider Unavailabl e Encounter Details Date Type Department Care Team (Late st Contact Info) Description 04/08/2011 Documentation [facility] [address] [place] [address] Family Medicine, Physician [facility] [place] [phone] Social History Tobacco Use Types Packs/Day Years [...]
--- OUTSIDE RECORDS SUMMARY | 2025-03-14 17:02 | XMS_ITS | Clinical Summary ---
Author Organization [facility] Address [address] [place] [address] Phone Care Team Providers Care Drawbench Operator Helper Name Role Phone Unavailable Primary Care Provider [...] - - Pulse - - Temperature 34.8 C (94.7 F) 07/16/2010 12:00 AM EST Respiratory Rate - - Oxygen Saturation - - Inhaled Oxygen Concentration - - Weight 112 kg (247 lb) 07/16/2010 12:00 AM EST Height - - Body Mass Index - - Plan of Treatment Health Maintenance Due Date Last Done Comments Varicella Vaccines (1 of 2 - 13+ 2-dose series) 04/08/2002 HPV Vaccines (1 - 3-dose SCDM series) 2016 DTaP,Tdap,and Td Vaccines (7 - Td or Tdap) 11/04/2017 11/05/2007, 03/11/2002, 12/06/1993, Additional history exists Influenza Vaccines (#1) 2025 COVID-19 Vaccine () 03/07/2025 HIB Vaccines Completed 01/25/1991 IPV Vaccines Completed 12/06/1993, 01/05, 1989, Additional history exists MMR Vaccines Completed 03/11/2002, 01/25/1991 Hepatitis B Vaccines Completed 08/31/2002, 04/12/2002, 03/11/2002 Meningococcal Vaccine Completed 11/05/2007 Hepatitis A Vaccines Aged Out No long er eligible based on patient's age to complete this topic Men B Vaccine Aged Out No longer elig ible based on patient's age to complete this topic Pneumococcal Vaccine Aged Out No long er eligible based on patient's age to complete this topic
--- OUTSIDE RECORDS SUMMARY | 2025-03-14 17:02 | XMS_ITS | Encounter Summary ---
Author Organization [facility] Address [address] [place] [phone] Phone Care Team Providers Care Waiter/Waitress Dining Car Name Role Phone Unavailable Primary Care Provider Unavailabl e Encounter Details Date Type Department Care Team (Late st Contact Info) Description 04/08/2011 Documentation [facility] [address] [place] [address] Family Medicine, Physician [facility] [place], [place] [phone] Social History Tobacco Use Types Packs/Day Years [...]
== END 2025-03-14 16:02 | disposition home or self-care (01) ==
LOC: HO.HMCFM 14:41
PROVIDERS: PCP Physician Assistant Medical; Visit Provider Physician Assistant Medical
DX: E11.9 Type 2 diabetes mellitus without complications (principal); K76.0 Fatty (change of) liver, not elsewhere classified; E78.2 Mixed hyperlipidemia; G47.33 Obstructive sleep apnea (adult) (pediatric); R03.0 Elevated blood-pressure reading, without diagnosis of hypertension

== ENCOUNTER → 2025-03-14 14:41 | Outpatient (BNVA) | payer BC, SELFPAY | PROVIDERS: PCP Physician Assistant Medical; Visit Provider Physician Assistant Medical | DX: E11.9 Type 2 diabetes mellitus without complications (principal) | CPT/HCPCS: 83036 ==

== ENCOUNTER 2025-04-12 14:54 | Outpatient (AMB) | payer BC, SELFPAY ==
--- NOTE | 2025-04-12 15:30 | MHC.OFFVIS ---
Intake Visit Reasons: nocturia Intake Note: Patient is present for NOCTURIA Urology Medication:NONE Antibiotic Allergy:NONE Blood Thinner:NONE Prototyper Required: No Allergies povidone-iodine (From Betadine) Allergy (Severe, Verified 04/12/25 20:52) Hives animal dander Allergy (Intermediate, Verified 04/12/25 20:52) Hives Medication List - Last Reconciled 04/12/25 by DELLA Arredondo atorvastatin 20 mg PO BEDTIME cetirizine 10 mg PO DAILY CPAP (CPAP Machine/Device) As directed. Auto CPAP mode with pressure setting of 6-20 cmH20 glipizide ER 10 mg PO DAILY sitagliptin phosphate (Januvia) 100 mg PO DAILY HPI Comments Details: Gucci is a 35-year-old male patient of Dr. Ochoa. He has a past medical history of nocturnal enuresis, NATTY, type 2 diabetes, mixed dyslipidemia, and heart murmur. He presents to the office today as a new patient for a longstanding history of nocturnal enuresis. In discussion with the patient today he reports as long as he can remember he has experienced episodes of nocturnal enuresis approximately 3-5 times per week. He reports having followed up with his PCP at which time an ultrasound was ordered and recommendations were made for urology referral for further assessment evaluation. These results reviewed and communicated with the patient today. 01/28 bilateral kidneys are normal in echotexture and thickness. There are no renal masses, hydronephrosis, or renal calculi noted bilaterally. The urinary bladder is unremarkable. Postvoid bladder volume 20 mL. The prostate is not well visualized. He reports despite attempting to urinate prior to bed he continues with nocturnal enuresis. We did discussed at length potential causes of this urological condition as well as further treatment options and risks and benefits of these treatment options. We also discussed the importance of management in his diabetes for improvement in overall health and well-being. In review of patient's chart it appears A1c is are as follows: A1c: 03/30 9.3, 09/28 9.8, 12/29 8.8, 03/31 10.2 He denies urinary urgency, urinary frequency, incontinence, hematuria, dysuria, foul smelling urine, changes to urinary stream, flank pain, fever, and or chills. In office urinalysis results reviewed with the patient today. All questions were answered. He otherwise offers no other issues or concerns at this time. [facility] Medical History (Updated 04/12/25 @ 15:54 by DELLA Arredondo) Elevated blood pressure reading Nocturnal enuresis Right shoulder pain NATTY (obstructive sleep apnea) Hepatomegaly Hepatic steatosis Type II diabetes mellitus Mixed dyslipidemia Abnormal liver function IFG (impaired fasting glucose) Fatigue Snoring Routine physical examination Screening for cardiovascular condition Heart murmur Pilonidal cyst Surgical History History of inguinal hernia repair, bilateral History of wisdom tooth extraction History of ankle surgery Family History Sister Diabetes Mental health disorder Mother Diabetes Maternal Grandmother Alcoholism Paternal Grandmother Cancer Social History (Updated 03/14/25 @ 14:54 by Paris Ni MA) Household Members: Family Housing: Apartment Alcohol intake: never Patient Tobacco Use Status: Never used Tobacco e-Cigarette/Vaping Use: Never Used Second Hand Smoke Exposure: No service: No Current occupational status: employed 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 Cognitive needs: No Hearing needs: Yes (occasion ) Vision needs: Yes (wear glasses) Review of Systems Const All systems reviewed & are unremarkable except as noted in HPI and below Physical Exam Const General: cooperative, comfortable, no acute distress, well developed, alert and awake Nutritional Appearance: overweight Orientation/consciousness: patient oriented x3 Limitations: no limitations HEENT Head: Yes normal to inspection, Yes normocephalic and Yes atraumatic Ears: hearing grossly normal bilaterally Eyes General: appearance normal, both eyes and all related structures Neck Neck: Yes normal visual inspection and Yes trachea midline Chest Chest palpation & inspection: normal inspection of the chest Resp Effort & Inspection: normal respiratory effort and able to speak in complete sentences Cardio Rate: regular rate GI Inspection: Yes normal to inspection General: Yes no CVA tenderness Back/Spine/Pelvis Back: no CVA tenderness Skin General skin exam: no rashes or lesions noted Neuro General: patient oriented x3 Extrem General: Yes normal to inspection Psych Appearance: grossly normal and well kempt Mental Status: mental status grossly normal Speech and movement: Normal speech and movement present and Clear speech present Affect: normal affect Attitude: cooperative Thought process: Normal thought process present Thought content: Normal thought content present Insight: Fair insight present (Psych) Judgement: Fair judgement present (Psych) Results AMB Urinalysis, Automated UA Leukoctes 0 Evelina/uL Last Edit by VINICIUS Larson on 04/12/25 16:16 UA Nitrite Negative Last Edit by VINICIUS Larson on 04/12/25 16:16 UA Urobilinogen 0.2 mg/dL Last Edit by VINICIUS Larson on 04/12/25 16:16 UA Protein 0 mg/dL Last Edit by Bereket Peters [facility] on 04/12/25 16:16 UA pH 6.0 Last Edit by Bereket Peters [facility] on 04/12/25 16:16 UA Blood 0 Johnathan/uL Last Edit by Bereket Peters [facility] on 04/12/25 16:16 UA Specific [place] 1.015 Last Edit by Bereket Peters [facility] on 04/12/25 16:16 UA Ketone Negative [facility] 04/12/25 16:16 UA Bilirubin 0 mg/dL Last Edit by Bereket Peters [facility] on 04/12/25 16:16 UA Glucose 1000 mg/dL Last Edit by Bereket Peters [facility] on 04/12/25 16:16 Results Reviewed Results Reviewed: Laboratory Last Values Urine pH (Auto) 6.0 04/12/25 16:16 Specific [place] (Auto) 1.015 04/12/25 16:16 Urine Protein (Auto) 0 mg/dL 04/12/25 16:16 Glucose (UA)(Auto) 1000 mg/dL 04/12/25 16:16 Urine Ketones (Auto) Negative 04/12/25 16:16 Urine Blood (Auto) 0 Johnathan/uL 04/12/25 16:16 Urine Nitrite (Auto) Negative 04/12/25 16:16 Urine Bilirubin (Auto) 0 mg/dL 04/12/25 16:16 Urine Urobilinogen (Auto) 0.2 mg/dL 04/12/25 16:16 Leukocyte Esterase (Auto) 0 Evelina/uL 04/12/25 16:16 Date of Service: 01/12/25 Procedure(s): US retroperitoneal comp FINDINGS: Right kidney: The right kidney measures 12.8 x 5.8 x 6.8 cm. Renal parenchymal echotexture and thickness are normal. There are no masses. There is no hydronephrosis or renal calculi. Left Kidney: The left kidney measures 14.4 x 6.5 x 7.8 cm. Renal parenchymal echotexture and thickness are normal. There are no masses. There is no hydronephrosis or renal calculi. The urinary bladder is unremarkable. Bilateral ureteral jets are identified. Before voiding, the urinary bladder measured 14.8 x 8.8 x 9.4 cm, for an estimated volume of 639 mL. After voiding, the urinary bladder measured 4.2 x 2.7 x 3.4 cm, for an estimated volume of 20.3 mL. The prostate is not identified. IMPRESSION: Unremarkable retroperitoneal ultrasound. Post void bladder residual of 20.3 mL. Assessment & Plan Assessment & Plan (1) Nocturnal enuresis: Code(s): N39.44 - Nocturnal enuresis Category: Medical Plan In office urinalysis results reviewed with the patient today; as noted above. Recent retroperitoneal ultrasound results reviewed with the patient today; as noted above. We discussed potential causes and further treatment options of nocturnal enuresis; we discussed risks and benefits of these treatment options. All questions were answered. We did discussed at length the importance of management and diabetes for improvement in overall health and well-being. We also discussed the importance of compliance with CPAP in relation to nocturnal enuresis as well as overall health and well-being. We discussed lifestyle modifications to assist with nocturnal enuresis. Follow-up in 3-6 months; or sooner with any issues, concerns, and or questions. Orders: Orders AMB Urinalysis Automated Today Z13.9 - Encounter for screening, unspecified Patient Instructions: The patient had an opportunity to ask questions regarding the treatment plan. All questions were answered. Physical exam, labs, and imaging were discussed and reviewed in detail. As well as risks, benefits, and discussion of treatment choices. No major barriers to understanding were identified. The patient expressed understanding and agreement with the above treatment plan. The patient was made aware they should contact our office by phone for worsening of their current condition, the appearance of new symptoms, or with any questions or concerns. Compliance is encouraged with any medications and follow up testing that is ordered. It is a privilege to be allowed the opportunity to participate in? your urological care.? Again, if you have any questions or concerns If you have any questions or concerns please do not hesitate to contact me. The office is [phone]. This note is constructed using voice recognition software. While every effort has been made to ensure accuracy maintenance craftsman errors may have been included. Yours sincerely, DELLA Arredondo Coding Level of Care Code New Pt Level 3 (59572) Diagnoses Nocturnal enuresis N39.44
--- OUTSIDE RECORDS SUMMARY | 2025-04-12 18:13 | XMS_ITS | Encounter Summary ---
Author Organization [facility] Address [address] [place] [phone] Phone Care Team Providers Care Tree Inspector Name Role Phone Unavailable Primary Care Provider Unavailabl e Encounter Details Date Type Department Care Team (Late st Contact Info) Description 04/08/2011 Documentation [facility] [address] [place] [address] Family Medicine, Physician [facility] [place] [phone] Social History Tobacco Use Types Packs/Day Years [...]
--- OUTSIDE RECORDS SUMMARY | 2025-04-12 18:13 | XMS_ITS | Encounter Summary ---
Author Organization [facility] Address [address] [place] [address] Phone Care Team Providers Care Barrel Liner Name Role Phone Unavailable Primary Care Provider Unavailabl e Encounter Details Date Type Department Care Team (Late st Contact Info) Description 04/08/2011 Documentation [facility] [address] [place] [address] Family Medicine, Physician [facility] [place], [place] [phone] Social History Tobacco Use Types Packs/Day Years [...]
--- OUTSIDE RECORDS SUMMARY | 2025-04-12 18:13 | XMS_ITS | Encounter Summary ---
Author Organization [facility] Address [address] [place] [phone] Phone Care Team Providers Care Bar And Filler Assembler Name Role Phone Unavailable Primary Care Provider Unavailabl e Encounter Details Date Type Department Care Team (Late st Contact Info) Description 02/20/2017 Conversion Encounter [facility] - [address] [phone] Social History Tobacco Use Types Packs/Day Years [...]
--- OUTSIDE RECORDS SUMMARY | 2025-04-12 18:13 | XMS_ITS | Clinical Summary ---
Author Organization [facility] Address [address] [place] [phone] Phone Care Team Providers Care Matrix Worker Name Role Phone Unavailable Primary Care Provider [...] exists Influenza Vaccines (#1) 2025 COVID-19 Vaccine ( season) 2025 HIB Vaccines Completed 01/25/1991 IPV Vaccines Completed [...]
--- OUTSIDE RECORDS SUMMARY | 2025-04-12 18:13 | XMS_ITS | Encounter Summary ---
Author Organization [facility] Address [address] [place] [phone] Phone Care Team Providers Care Java Sql Developer Name Role Phone Unavailable Primary Care Provider Unavailabl e Encounter Details Date Type Department Care Team (Late st Contact Info) Description 04/08/2011 Documentation [facility] [address] [place] [address] Family Medicine, Physician [facility] [place] [phone] Social History Tobacco Use Types Packs/Day Years [...]
--- OUTSIDE RECORDS SUMMARY | 2025-04-12 18:13 | XMS_ITS | Encounter Summary ---
Author Organization [facility] Address [address] [place] [phone] Phone Care Team Providers Care Professor Of Religious Studies Name Role Phone Unavailable Primary Care Provider Unavailabl e Encounter Details Date Type Department Care Team (Late st Contact Info) Description 04/08/2011 Documentation [facility] [address] [place] [address] Family Medicine, Physician [facility] [place] [phone] Social History Tobacco Use Types Packs/Day Years [...]
--- OUTSIDE RECORDS SUMMARY | 2025-04-12 18:13 | XMS_ITS | Encounter Summary ---
Author Organization [facility] Address [address] [place] [phone] Phone Care Team Providers Care Phlebotomy Support Tech Name Role Phone Unavailable Primary Care Provider Unavailabl e Encounter Details Date Type Department Care Team (Late st Contact Info) Description 04/08/2011 Documentation [facility] [address] [place] [address] Family Medicine, [facility] [place] [phone] Social History Tobacco Use Types Packs/Day Years [...]
--- OUTSIDE RECORDS SUMMARY | 2025-04-12 18:13 | XMS_ITS | Encounter Summary ---
Author Organization [facility] Address [address] [place] [address] Phone Care Team Providers Care Worsted Winder Name Role Phone Unavailable Primary Care Provider Unavailabl e Encounter Details Date Type Department Care Team (Late st Contact Info) Description 04/08/2011 Documentation [facility] [address] [place] [address] Family Medicine, Physician [facility] [place], [place] [phone] Social History Tobacco Use Types Packs/Day Years [...]
--- OUTSIDE RECORDS SUMMARY | 2025-04-12 18:13 | XMS_ITS | Encounter Summary ---
Author Organization [facility] Address [address] [place] [phone] Phone Care Team Providers Care Montessori Preschool Teacher Name Role Phone Unavailable Primary Care Provider Unavailabl e Encounter Details Date Type Department Care Team (Late st Contact Info) Description 04/08/2011 Documentation [facility] [address] [place] [address] Family Medicine, Physician [facility] [place] [phone] Social History Tobacco Use Types Packs/Day Years [...]
--- OUTSIDE RECORDS SUMMARY | 2025-04-12 18:13 | XMS_ITS ---
[facility] Name [facility] History of Medication Use Medication Directions Dispensed Refills Start Date End Date Stat us fluticasone propionate 04/07/2025 active prednisone 04/07/2025 active albuterol sulfate 04/07/2025 act kwasi benzonatate 04/07/2025 active amoxicillin-pot clavulanate 03/28/2025 active atorvastatin calcium 04/22/2024 active glipizide 04/22/2024 active Allergies Allergen Reaction Severity Comment Documented Date Source Statu s BETADINE RASH ([id number]) [facility] Encounters Encounter Type Encounter Reason Primary Diagnosis Location Date Ambulatory TBE Acute bronchitis , unspecified [facility]) 04/07/2025 Care Team Organization Name Specialty Phone Email Start Date End Da te [facility] 04/07/2025 [facility] 04/07/2025
--- OUTSIDE RECORDS SUMMARY | 2025-04-12 18:13 | XMS_ITS | Encounter Summary ---
Author Organization [facility] Address [address] [place] [phone] Phone Care Team Providers Care Seamless Tube Roller Name Role Phone Unavailable Primary Care Provider Unavailabl e Encounter Details Date Type Department Care Team (Late st Contact Info) Description 04/08/2011 Documentation [facility] [address] [place] [address] Family Medicine, Physician [facility] [place] [phone] Social History Tobacco Use Types Packs/Day Years [...]
--- OUTSIDE RECORDS SUMMARY | 2025-04-12 18:13 | XMS_ITS | Encounter Summary ---
Author Organization [facility] Address [address] [place] [address] Phone Care Team Providers Care Registered Nurse Cardiac Name Role Phone Unavailable Primary Care Provider Unavailabl e Encounter Details Date Type Department Care Team (Late st Contact Info) Description 04/08/2011 Documentation [facility] [address] [place] [address] Family Medicine, Physician [facility] [place] [phone] Social History Tobacco Use Types Packs/Day Years [...]
== END 2025-04-12 16:07 | disposition home or self-care (01) ==
LOC: HO.HUSH 14:55
PROVIDERS: PCP Physician Assistant Medical; Visit Provider Nurse Practitioner Family
DX: Z13.9 Encounter for screening, unspecified (principal); N39.44 Nocturnal enuresis
CPT/HCPCS: 99203

== ENCOUNTER → 2025-04-12 14:54 | Outpatient (BNVA) | payer BC, SELFPAY | PROVIDERS: PCP Physician Assistant Medical; Visit Provider Nurse Practitioner Family | DX: N39.44 Nocturnal enuresis (principal); E11.9 Type 2 diabetes mellitus without complications; Z13.9 Encounter for screening, unspecified | CPT/HCPCS: 81003 ==

== ENCOUNTER 2025-04-15 15:02 | Outpatient (AMB) | payer BC, SELFPAY ==
--- NOTE | 2025-04-15 15:33 | MHC.OFFVIS ---
Vital Signs 04/15/25 15:34 Height 5 ft 10 in Weight 309 lb BMI 44.3 BP 122/78 Blood Pressure Location Rt brachial Position Sitting Pulse 109 H Pulse Source Pulse Oximeter Pulse Oximetry (%) 94 Oxygen Delivery Method Room Air Intake Visit Reasons: f/u appt Intake Note: Patient presents follow up NATTY. Compliance in Chart(02/02days, >=4hrs-0%, Average Usage-29min, Med Pressure-8.9, Med Leaks-9.6, AHI-2.8). States machine drying out his mouth. Accompanied by: Self / Same As Patient Allergies povidone-iodine (From Betadine) Allergy (Severe, Verified 04/15/25 15:36) Hives animal dander Allergy (Intermediate, Verified 04/15/25 15:36) Hives HPI Comments Details: 35 y/o male presents for an evaluation of NATTY he is on cpap therapy. HST reviewed with pt. AHI is 18, REM AHI was 60, oxygen nadirs to 79% and below 88% for over 4 min, he has moderate natty. He started therapy on auto pressure settings of 6-81ucE32 and has not been able to use his cpap machine consistently due to the air being very cold and drying out his mouth. He turned up the pressure to 8 on the humidity / temperature setting but notes the air is still cold as it blows into his mouth. He has had this machine for over a month now. He says the pressures are good for him, it is just drying his mouth out and he can not go for an hour without taking a drink of water. He is following up with his sleep company as they have not been efficient with supplies and he may need to contact them again for a new machine as this one is not adjusting the humidity or temperatures as necessary for therapeutic effects. He says he did not sleep well during the night of his study and does not think he has NATTY. We discussed evaluating him with an overnight in lab PSG and this will also rule out hypoxemia. He denies RLS symptoms. He denies Parasomnias, GERD, and multiple night time arousals. He denies grinding his teeth, and morning headaches. His mood fluctuates. He says his memory is poor, mainly his short term memory, he must write everything down or he forgets. He denies smoking and alcohol use. PMH In 05/2024 He had a Transthoracic Echocardiogram which was c/w a heart murmur. [facility] Medical History Elevated blood pressure reading Nocturnal enuresis Right shoulder pain NATTY (obstructive sleep apnea) Hepatomegaly Hepatic steatosis Type II diabetes mellitus Mixed dyslipidemia Abnormal liver function IFG (impaired fasting glucose) Fatigue Snoring Routine physical examination Screening for cardiovascular condition Heart murmur Pilonidal cyst Surgical History History of inguinal hernia repair, bilateral History of wisdom tooth extraction History of ankle surgery Family History Sister Diabetes Mental health disorder Mother Diabetes Maternal Grandmother Alcoholism Paternal Grandmother Cancer Social History Household Members: Family Housing: Apartment Alcohol intake: never Patient Tobacco Use Status: Never used Tobacco e-Cigarette/Vaping Use: Never Used Second Hand Smoke Exposure: No service: No Current occupational status: employed 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 Cognitive needs: No Hearing needs: Yes (occasion ) Vision needs: Yes (wear glasses) Physical Exam Vital Signs: Last Vital Signs Pulse 109 H 04/15/25 15:34 BP 122/78 04/15/25 15:34 Pulse Ox 94 04/15/25 15:34 Oxygen Delivery Method Room Air 04/15/25 15:34 BMI result Body Mass Index 44.3 Const General: cooperative, comfortable and no acute distress Orientation/consciousness: patient oriented x3 HEENT Face and sinus: Yes face symmetric Throat: Yes other ([place] 3) Eyes Pupils: Equal, round and reactive pupils present Neck Neck: Yes full ROM Resp Effort & Inspection: normal respiratory effort and able to speak in complete sentences Neuro General: patient oriented x3 and moves all extremities Cranial nerves: Yes Equal, round and reactive pupils present, Yes Normal accommodation reflex present, Yes Normal facial strength present, Yes Midline tongue present, Yes Ability to bilaterally rotate head present and Yes Ability to bilaterally elevate shoulders present Cognition (Neuro): normal cognition Gait exam (Neuro): Normal gait present Motor exam (neuro): 5/5 motor strength present throughout and Normal motor muscle tone present throughout Psych Appearance: well kempt Affect: normal affect Thought process: Normal thought process present Thought content: Normal thought content present Results Reviewed Results Reviewed: HST reviewed with pt. AHI is 18 and REM AHI is 60 with oxygen med to 76% and <88% for over 4 min. Will send him for an in lab sleep study and monitor for hypoxemia. Assessment & Plan Assessment & Plan (1) NATTY (obstructive sleep apnea): Comment: nocturnal hypoxemia Code(s): G47.33 - Obstructive sleep apnea (adult) (pediatric) Category: Medical (2) Snoring: Code(s): R06.83 - Snoring Category: Medical (3) Excessive daytime sleepiness: Code(s): G47.19 - Other hypersomnia Category: Medical (4) NATTY on CPAP: Code(s): G47.33 - Obstructive sleep apnea (adult) (pediatric) Category: Medical (5) Nocturnal hypoxemia: Code(s): G47.34 - Idiopathic sleep related nonobstructive alveolar hypoventilation Category: Medical Plan PSG to r/o nocturnal hypoxemia. Pt. to notify clinic if he is not able to get a different cpap machine or supplies from his sleep company. Complete Labs r/o deficiencies. Anemia, thyroid issues, etc. B12/vit d, ferritin, homocysteine, mma, folate, cbc, cmp. Weight management BMI is 44. f/u in 3 months Orders: Orders RT PSG in-lab sleep study Today G47.33 - Obstructive sleep apnea (adult) (pediatric), G47.34 - Idiopathic sleep related nonobstructive alveolar hypoventilation Overnight Pulse Oximetry Today G47.33 - Obstructive sleep apnea (adult) (pediatric), G47.34 - Idiopathic sleep related nonobstructive alveolar hypoventilation Patient Instructions: Sleep Hygiene provided: set a scheduled bedtime and wake time to help regulate the circadian rhythm and balance the release of pituitary hormones. Sleep in a dark room, temperatures below 68 degrees, and no devices n bed. Limit caffeinated products 6 hours prior to bed, and limit fluids 2-4 hours prior to bed. Gentle night yoga, diffusing essential oils, and playing soft music can be relaxing. Coding Level of Care Code Est Pt Level 4 (30410) Diagnoses NATTY (obstructive sleep apnea) G47.33 Snoring R06.83 Excessive daytime sleepiness G47.19 NATTY on CPAP G47.33 Nocturnal hypoxemia G47.34
[2025-04-15 15:34] VITALS: BP 122/78; PULSE 109; O2SAT 94; BMI 44.3
== END 2025-04-15 15:59 | disposition home or self-care (01) ==
LOC: HO.HSMS 15:02
PROVIDERS: PCP Physician Assistant Medical; Visit Provider Physician Assistant Medical
DX: G47.33 Obstructive sleep apnea (adult) (pediatric) (principal); R06.83 Snoring; G47.19 Other hypersomnia; G47.34 Idiopathic sleep related nonobstructive alveolar hypoventilation
CPT/HCPCS: 99214

== ENCOUNTER 2025-05-05 14:33 | Outpatient (AMB) | payer BC, SELFPAY ==
--- NOTE | 2025-05-05 14:35 | A.OFFVIS_ITS ---
Vital Signs 05/05/25 14:40 Height 5 ft 10 in Weight 306 lb 7.08 oz BMI 44.0 BP 118/80 Blood Pressure Location Rt brachial Position Sitting Pulse 93 Pulse Source Pulse Oximeter Pulse Oximetry (%) 96 Oxygen Delivery Method Room Air Intake Visit Reasons: T2DM Intake Note: NEW Patient presents today to establish treatment for Type 2 Diabetes Mellitus: Last Diabetic eye exam was on: Patient stated had an Eye Exam in the Spring 2024, [facility] Last Podiatry exam was on: Patient does not see a Theater Teacher Most recent HbA1c: 10.2%, 03/14/2025 Random Glucose: 358 mg/dL Python Engineer Required: No Accompanied by: Self / Same As Patient Allergies povidone-iodine (From Betadine) Allergy (Severe, Verified 05/05/25 14:43) Hives animal dander Allergy (Intermediate, Verified 05/05/25 14:43) Hives HPI Comments Details: This is a 35-year-old male presenting for diabetic consultation Medical history of obesity, a heart murmur, fatigue and snoring, type 2 diabetes, mixed dyslipidemia, hepatomegaly and hepatic steatosis He was diagnosed with diabetes in 2023 Type 2 diabetes- A1c 10.2% 03/14/2025 Current meds Glipizide extended release 10 mg daily Januvia 100 mg daily. He has not been on metformin due to betadine allergy though glucophage does not contain povidone Frequently missing doses-he forgets. Even sets alarm on phone but then forgets again Has OTC glucometer. Has not been checking regularly He is not following a low carb diet, but he has cut back on sugar. He eats 1-2 servings of carbs with most meals. Drinks water. No alcohol. Nosmoker. He continues to decline insulin and GLP 1 medications. Patient says that takes atorvastatin once or twice per week. The patient had an echocardiogram completed on 04/26/2024 which showed no significant valve disease, and ejection fraction was normal. Denies hypoglycemia Patient reports his last eye exam was in January 2025. Denies retinopathy. On 03/06/2024 his total bilirubin and ALT were mildly elevated at 1.4 and 55, respectively. Negative testing for hepatitis a, B and C. Normal AST and alkaline phosphatase. He had a liver ultrasound which showed hepatic steatosis and hepatomegaly. Patient is seeing Gastroenterology. He does not drink alcohol. He continues to decline referral to a dietitian and clinical unit educator ROS CONSTITUTIONAL: Denies weight loss, fever and chills. HEENT: Denies changes in vision and hearing. RESPIRATORY: Denies SOB and cough. CV: Denies palpitations and CP GI: Denies abdominal pain, nausea, vomiting and diarrhea. : Denies dysuria and urinary frequency. MSK: Denies new myalgia and joint pain. SKIN: Denies foot lesions NEUROLOGICAL: Denies headache PSYCHIATRIC: Denies recent changes in mood. PHYSICAL EXAM: GENERAL: Alert and oriented x 3. NAD EYES: EOMI. Anicteric. HENT: Moist mucous membranes. No scleral icterus. No cervical lymphadenopathy. LUNGS: Clear to auscultation bilaterally. CARDIOVASCULAR: Regular rate and rhythm. No murmur. No JVD. ABDOMEN: Soft, non-tender +bs EXTREMITIES: No edema. +PT pulses. Non-tender. SKIN: No rashes or lesions. Warm. NEUROLOGIC: No focal neurological deficits. CN II-XII grossly intact PSYCHIATRIC: Cooperative. Appropriate mood and affect. [facility] Medical History Elevated blood pressure reading Nocturnal enuresis Right shoulder pain NATTY (obstructive sleep apnea) Hepatomegaly Hepatic steatosis Type II diabetes mellitus Mixed dyslipidemia Abnormal liver function IFG (impaired fasting glucose) Fatigue Snoring Routine physical examination Screening for cardiovascular condition Heart murmur Pilonidal cyst Surgical History History of inguinal hernia repair, bilateral History of wisdom tooth extraction History of ankle surgery Family History Sister Diabetes Mental health disorder Mother Diabetes Maternal Grandmother Alcoholism Paternal Grandmother Cancer Social History Household Members: Family Housing: Apartment Alcohol intake: never Patient Tobacco Use Status: Never used Tobacco e-Cigarette/Vaping Use: Never Used Second Hand Smoke Exposure: No service: No Current occupational status: employed 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 Cognitive needs: No Hearing needs: Yes (occasion ) Vision needs: Yes (wear glasses) Physical Exam Vital Signs: BMI result Body Mass Index 44.0 Assessment & Plan Assessment & Plan (1) Type II diabetes mellitus: Code(s): E11.9 - Type 2 diabetes mellitus without complications Category: Medical Qualifiers: Diabetes mellitus complication status: without complication Diabetes mellitus superintendent container terminal insulin use: without superintendent container terminal use Qualified Code(s): E11.9 - Type 2 diabetes mellitus without complications Plan Type 2 diabetes-uncontrolled in setting of medication non compliance Long discussion regarding dangers of uncontrolled diabetes and that is essential for him to take meds daily as prescribed Will prescribe he metformin XR (glucophage) start with two tabs daily increase to 4 tabs daily as tolerated Hold glipizide and januvia Treat hypogyclemia by rules of 15s Check FSBS daily and as needed Return in 2 months or sooner as needed Decline referral for CDE, nutrition Medications: New metformin ER (Glucophage XR) 2,000 mg (4 x 500 mg) PO DAILY 360 tabs 3RF On Hold sitagliptin phosphate (Januvia) Hold Comment: Dose Change 100 mg PO DAILY 90 tabs 3RF glipizide ER Hold Comment: Dose Change 10 mg PO DAILY 90 tabs 1RF Coding Level of Care Code Est Pt Level 4 (29500) Diagnoses Type 2 diabetes mellitus without complication, without long-term current use of insulin E11.9 Diabetes mellitus complication status: without complication Diabetes mellitus superintendent container terminal insulin use: without [facility] use
[2025-05-05 14:40] VITALS: BP 118/80; PULSE 93; O2SAT 96; BMI 44.0
[2025-05-05 14:51] LABS: Glucose, Whole Blood 358 mg/dL (60-115)
--- OUTSIDE RECORDS SUMMARY | 2025-05-05 17:38 | XMS_ITS | Encounter Summary ---
Author Organization [facility] Address [address] [place] [address] Phone Care Team Providers Care Splicer Apprentice Name Role Phone Unavailable Primary Care Provider Unavailabl e Encounter Details Date Type Department Care Team (Late st Contact Info) Description 04/08/2011 Documentation EM Family Medicine [address] [place] [address] Family Medicine, Physician [facility] [place], [place] [id number] Social History Tobacco Use Types Packs/Day Years [...]
--- OUTSIDE RECORDS SUMMARY | 2025-05-05 17:38 | XMS_ITS | Encounter Summary ---
Author Organization [facility] Address [address] [place] [address] Phone Care Team Providers Care Electrician Helper Automotive Name Role Phone Unavailable Primary Care Provider Unavailabl e Encounter Details Date Type Department Care Team (Late st Contact Info) Description 04/08/2011 Documentation EM Family Medicine [address] [place] [address] Family Medicine, Physician [facility] [place] [phone] Social History Tobacco Use Types Packs/Day Years [...]
--- OUTSIDE RECORDS SUMMARY | 2025-05-05 17:38 | XMS_ITS | Encounter Summary ---
Author Organization [facility] Address [address] [place] [address] Phone Care Team Providers Care Student Development Specialist Name Role Phone Unavailable Primary Care Provider Unavailabl e Encounter Details Date Type Department Care Team (Late st Contact Info) Description 02/20/2017 Conversion Encounter [facility] - [address] [phone] Social History Tobacco Use Types Packs/Day Years [...]
--- OUTSIDE RECORDS SUMMARY | 2025-05-05 17:38 | XMS_ITS | Encounter Summary ---
Author Organization [facility] Address [address] [place] [address] Phone Care Team Providers Care Technical Operations Vice President Name Role Phone Unavailable Primary Care Provider Unavailabl e Encounter Details Date Type Department Care Team (Late st Contact Info) Description 04/08/2011 Documentation EM Family Medicine [address] [place] [address] Family Medicine, Physician [facility] [place] [phone] Social History Tobacco Use Types Packs/Day Years [...]
--- OUTSIDE RECORDS SUMMARY | 2025-05-05 17:38 | XMS_ITS | Encounter Summary ---
Author Organization [facility] Address [address] [place] [address] Phone Care Team Providers Care Compound Mixer Name Role Phone Unavailable Primary Care Provider Unavailabl e Encounter Details Date Type Department Care Team (Late st Contact Info) Description 04/08/2011 Documentation EM Family Medicine [address] [place] [address] Family Medicine, Physician [facility] [place], [place] [phone] Social History Tobacco Use Types Packs/Day Years [...]
--- OUTSIDE RECORDS SUMMARY | 2025-05-05 17:38 | XMS_ITS | Encounter Summary ---
Author Organization [facility] Address [address] [place] [address] Phone Care Team Providers Care Caretaker Name Role Phone Unavailable Primary Care Provider Unavailabl e Encounter Details Date Type Department Care Team (Late st Contact Info) Description 04/08/2011 Documentation EM Family Medicine [address] [place] [address] Family Medicine, Physician [facility] [place], [place] [phone] Social History Tobacco Use Types Packs/Day Years [...]
--- OUTSIDE RECORDS SUMMARY | 2025-05-05 17:38 | XMS_ITS | Clinical Summary ---
Author Organization [facility] Address [address] [place] [address] Phone Care Team Providers Care Trapper Animal Name Role Phone Unavailable Primary Care Provider [...]
--- OUTSIDE RECORDS SUMMARY | 2025-05-05 17:38 | XMS_ITS | Encounter Summary ---
Author Organization [facility] Address [address] [place] [address] Phone Care Team Providers Care Configuration Consultant Name Role Phone Unavailable Primary Care Provider Unavailabl e Encounter Details Date Type Department Care Team (Late st Contact Info) Description 04/08/2011 Documentation EM Family Medicine [address] [place] [address] Family Medicine, Physician [facility] [place] [phone] Social History Tobacco Use Types Packs/Day Years [...]
--- OUTSIDE RECORDS SUMMARY | 2025-05-05 17:38 | XMS_ITS | Encounter Summary ---
Author Organization [facility] Address [address] [place] [address] Phone Care Team Providers Care Clay Plant Treater Name Role Phone Unavailable Primary Care Provider Unavailabl e Encounter Details Date Type Department Care Team (Late st Contact Info) Description 04/08/2011 Documentation EM Family Medicine [address] [place] [address] Family Medicine, Physician [facility] [place] [phone] Social History Tobacco Use Types Packs/Day Years [...]
--- OUTSIDE RECORDS SUMMARY | 2025-05-05 17:38 | XMS_ITS | Encounter Summary ---
Author Organization [facility] Address [address] [place] [address] Phone Care Team Providers Care Manager Drug Name Role Phone Unavailable Primary Care Provider Unavailabl e Encounter Details Date Type Department Care Team (Late st Contact Info) Description 04/08/2011 Documentation EM Family Medicine [address] [place] [address] Family Medicine, [facility]ician [facility] [place] [phone] Social History Tobacco Use Types Packs/Day Years [...]
--- OUTSIDE RECORDS SUMMARY | 2025-05-05 17:38 | XMS_ITS | Encounter Summary ---
Author Organization [facility] Address [address] [place] [address] Phone Care Team Providers Care Camp Assistant Name Role Phone Unavailable Primary Care Provider Unavailabl e Encounter Details Date Type Department Care Team (Late st Contact Info) Description 04/08/2011 Documentation EM Family Medicine [address] [place] [address] Family Medicine, Physician [facility] [place] [phone] Social History Tobacco Use Types Packs/Day Years [...]
== END 2025-05-05 15:04 | disposition home or self-care (01) ==
LOC: HO.ENCR 14:34
PROVIDERS: PCP Physician Assistant Medical; Visit Provider Internal Medicine
DX: E11.9 Type 2 diabetes mellitus without complications (principal)

== ENCOUNTER → 2025-05-05 14:33 | Outpatient (BNVA) | payer BC, SELFPAY | PROVIDERS: PCP Physician Assistant Medical; Visit Provider Internal Medicine | DX: E11.9 Type 2 diabetes mellitus without complications (principal); Z79.84 Long term (current) use of oral hypoglycemic drugs | CPT/HCPCS: 82947 ==

== ENCOUNTER 2025-05-06 15:05 | Outpatient (REF) | payer BC, SELFPAY ==
--- NOTE | ~2025-05-06 | US_ITS ---
EXAMINATION: US ABDOMEN LIMITED WITH LIVER ELASTOGRAPHY CLINICAL INFORMATION: Hepatic steatosis COMPARISON: September 23, 2024 TECHNIQUE: Real-time imaging of the abdominal viscera. Noninvasive ultrasound liver fibrosis assessment is performed using [employer] ElastPQ point quantification shear wave elastography (pSWE) with a 5 MHz transducer. Multiple elastography samples are obtained. FINDINGS: PANCREAS: The head is grossly normal. The body and tail are obscured by bowel gas. LIVER: Liver displays coarse increased echogenicity with a small area of focal sparing adjacent to the gallbladder fossa. The right lobe measures 22 cm in length. The left lobe measures 14 cm in length. Main portal vein is patent with a normal direction of flow and a continuous venous waveform. Shear wave elastography provides a median stiffness of 1.6 m/s, previously 2.0 m/s (reference: normal median stiffness is 0.81 - 1.22 m/s). The IQR/median stiffness to assess sampling precision is 0.09 (reference: optimal IQR/median stiffness is under 0.3). GALLBLADDER: The gallbladder is physiologically distended without evidence of stones, sludge, polyps, wall thickening or pericholecystic fluid. COMMON BILE DUCT: Normal in caliber measuring 0.6 cm in diameter. RIGHT KIDNEY: No hydronephrosis. No renal calculi or focal parenchymal lesions. The kidney measures 14.5 cm in maximum dimension. FREE FLUID: None seen. US/US abdomen coelho w elastography IMPRESSION: 1. Hepatic steatosis 2. Elastography: In the absence of other known clinical signs, rules out compensated advanced chronic liver disease. This represents an improvement from the prior stud. Electronically signed by: Jeremiah Weller MD 05/06/2025 04:15 PM EDT
--- OUTSIDE RECORDS SUMMARY | 2025-05-06 15:24 | XMS_ITS | Encounter Summary ---
Author Organization [facility] Address [address] [place] [address] Phone Care Team Providers Care Speech Pathology Teacher Name Role Phone Unavailable Primary Care Provider Unavailabl e Encounter Details Date Type Department Care Team (Late st Contact Info) Description 04/08/2011 Documentation EM Family Medicine [address] [place] [address] Family Medicine, Physician [facility] [place] [phone] Social History Tobacco Use Types Packs/Day Years [...]
--- OUTSIDE RECORDS SUMMARY | 2025-05-06 15:24 | XMS_ITS | Encounter Summary ---
Author Organization [facility] Address [address] [place] [address] Phone Care Team Providers Care Belt Repairer Name Role Phone Unavailable Primary Care Provider Unavailabl e Encounter Details Date Type Department Care Team (Late st Contact Info) Description 04/08/2011 Documentation EM Family Medicine [address] [place] [address] Family Medicine, Physician [facility] [place], [place] [phone] Social History Tobacco Use Types Packs/Day Years [...]
--- OUTSIDE RECORDS SUMMARY | 2025-05-06 15:24 | XMS_ITS | Encounter Summary ---
Author Organization [facility] Address [address] [place] [address] Phone Care Team Providers Care Carbonator Name Role Phone Unavailable Primary Care Provider Unavailabl e Encounter Details Date Type Department Care Team (Late st Contact Info) Description 04/08/2011 Documentation EM Family Medicine [address] [place] [address] Family Medicine, Physician [facility] [place], [place] [phone] Social History Tobacco Use Types Packs/Day Years [...]
--- OUTSIDE RECORDS SUMMARY | 2025-05-06 15:24 | XMS_ITS | Encounter Summary ---
Author Organization [facility] Address [address] [place] [address] Phone Care Team Providers Care Train Gate Attendant Name Role Phone Unavailable Primary Care Provider Unavailabl e Encounter Details Date Type Department Care Team (Late st Contact Info) Description 04/08/2011 Documentation EM Family Medicine [address] [place] [address] Family Medicine, Physician [facility] [place], [place] [phone] Social History Tobacco Use Types Packs/Day Years [...]
--- OUTSIDE RECORDS SUMMARY | 2025-05-06 15:24 | XMS_ITS | Encounter Summary ---
Author Organization [facility] Address [address] [place] [address] Phone Care Team Providers Care Elementary Assistant Teacher Name Role Phone Unavailable Primary Care Provider Unavailabl e Encounter Details Date Type Department Care Team (Late st Contact Info) Description 04/08/2011 Documentation EM Family Medicine [address] [place] [address] Family Medicine, Physician [facility] [place], [place] [phone] Social History Tobacco Use Types Packs/Day Years [...]
--- OUTSIDE RECORDS SUMMARY | 2025-05-06 15:24 | XMS_ITS | Encounter Summary ---
Author Organization [facility] Address [address] [place] [address] Phone Care Team Providers Care Furnace Tender Name Role Phone Unavailable Primary Care Provider Unavailabl e Encounter Details Date Type Department Care Team (Late st Contact Info) Description 04/08/2011 Documentation EM Family Medicine [address] [place] [address] Family Medicine, Physician [facility] [place], [place] [phone] Social History Tobacco Use Types Packs/Day Years [...]
--- OUTSIDE RECORDS SUMMARY | 2025-05-06 15:24 | XMS_ITS | Encounter Summary ---
Author Organization [facility] Address [address] [place] [address] Phone Care Team Providers Care Planning And Analysis Manager Name Role Phone Unavailable Primary Care Provider Unavailabl e Encounter Details Date Type Department Care Team (Late st Contact Info) Description 04/08/2011 Documentation EM Family Medicine [address] [place] [address] Family Medicine, Physician [facility] [place], [place] [phone] Social History Tobacco Use Types Packs/Day Years [...]
--- OUTSIDE RECORDS SUMMARY | 2025-05-06 15:24 | XMS_ITS | Clinical Summary ---
Author Organization [facility] Address [address] [place] [address] Phone Care Team Providers Care Cell Plasterer Name Role Phone Unavailable Primary Care Provider [...]
--- OUTSIDE RECORDS SUMMARY | 2025-05-06 15:24 | XMS_ITS | Encounter Summary ---
Author Organization [facility] Address [address] [place] [address] Phone Care Team Providers Care Pmo Project Manager Name Role Phone Unavailable Primary Care Provider Unavailabl e Encounter Details Date Type Department Care Team (Late st Contact Info) Description 02/20/2017 Conversion Encounter [facility] - [address] [phone] Social History Tobacco Use Types Packs/Day Years [...]
--- OUTSIDE RECORDS SUMMARY | 2025-05-06 15:24 | XMS_ITS | Encounter Summary ---
Author Organization [facility] Address [address] [place] [address] Phone Care Team Providers Care Real Estate Internship Name Role Phone Unavailable Primary Care Provider Unavailabl e Encounter Details Date Type Department Care Team (Late st Contact Info) Description 04/08/2011 Documentation EM Family Medicine [address] [place] [address] Family Medicine, Physician [facility] [place], [place] [phone] Social History Tobacco Use Types Packs/Day Years [...]
--- OUTSIDE RECORDS SUMMARY | 2025-05-06 15:24 | XMS_ITS | Encounter Summary ---
Author Organization [facility] Address [address] [place] [address] Phone Care Team Providers Care Tankage Supervisor Name Role Phone Unavailable Primary Care Provider Unavailabl e Encounter Details Date Type Department Care Team (Late st Contact Info) Description 04/08/2011 Documentation EM Family Medicine [address] [place] [address] Family Medicine, Physician [facility] [place], [place] [phone] Social History Tobacco Use Types Packs/Day Years [...]
== END 2025-05-06 15:06 | disposition home or self-care (01) ==
LOC: HO.US 15:05
PROVIDERS: PCP Physician Assistant Medical; Visit Provider Nurse Practitioner Family
DX: K76.0 Fatty (change of) liver, not elsewhere classified (principal)
CPT/HCPCS: 76705; 76981

== ENCOUNTER → 2025-05-06 15:08 | Outpatient (BNV) | payer BC, SELFPAY | PROVIDERS: PCP Physician Assistant Medical; Visit Provider Radiology Diagnostic Radiology | DX: K76.0 Fatty (change of) liver, not elsewhere classified (principal) | CPT/HCPCS: 76705 ==

== ENCOUNTER 2025-05-30 15:22 | Outpatient (REF) | payer BC, SELFPAY ==
[2025-05-30 17:02] LABS: Alanine Aminotransferase 74 U/L (0-40); Albumin Level 4.7 g/dL (3.5-5.0); Alkaline Phosphatase 56 U/L (39-117); Aspartate Amino Transferase 33 U/L (5-37); Total Protein 7.7 g/dL (6.5-8.0)
== END 2025-05-30 15:23 | disposition home or self-care (01) ==
LOC: HO.LAB 15:22
PROVIDERS: PCP Physician Assistant Medical; Visit Provider Nurse Practitioner Family
DX: K76.0 Fatty (change of) liver, not elsewhere classified (principal); E78.2 Mixed hyperlipidemia; E11.9 Type 2 diabetes mellitus without complications; R74.01 Elevation of levels of liver transaminase levels
CPT/HCPCS: 36415; 80076; 83036

== ENCOUNTER 2025-05-30 15:22 | Outpatient (AMB) | payer BC, SELFPAY ==
--- NOTE | 2025-05-30 15:24 | A.OFFVIS_ITS ---
Vital Signs 05/30/25 15:31 Height 5 ft 10 in Weight 304 lb BMI 43.6 BP 134/82 Blood Pressure Location Rt brachial Position Sitting Pulse 102 H Pulse Source Pulse Oximeter Pulse Oximetry (%) 97 Oxygen Delivery Method Room Air Intake Visit Reasons: 6m Intake Note: Est pt for mgmt of liver abn. Reminded of labs 05/16 CC; Pt denies any GI sx or concerns at this time. Despite the reminder phone call on 05/16, pt has still not gotten his bloodwork done. Last labs were done 05/05 but did not include orders from GI provider. Procurement Officer Required: No Accompanied by: Self / Same As Patient Allergies povidone-iodine (From Betadine) Allergy (Severe, Verified 05/30/25 15:24) Hives animal dander Allergy (Intermediate, Verified 05/30/25 15:24) Hives HPI HPI 6m: Details: LAST VISIT Hepatomegaly Hepatic steatosis Abnormal liver function Mixed dyslipidemia Plan Discussed with patient avoid certain types of food. We did discuss the type of diet he should be following and list of food recommend that given to patient. Patient was also encouraged to try to lose weight and exercise. He will repeat ultrasound and liver panel in 6 months before his next appointment. He is agr eeable to this plan and verbalizes understanding of instructions. He was given the opportunity to ask questions and all questions answered. ? Thank you for allowing me to participate in his care Orders US abdomen coelho w elastography 6 Months K76.0 Liver Panel 6 Months R74.01 TODAY'S VISIT Patient is here today for follow-up and to discuss lab and ultrasound results. Patient had ultrasound did show decreased elastography from ultrasound before, however patient did not do his blood work. Will send him to get the labs done today. Patient denies any GI concerning symptoms. He is here today to discuss results. Diagnosed with fatty liver. Poorly controlled diabetes. Patient is following up with Dr. Darden. Recent change in his diabetic medications. No weight loss as of yet. Last A1c in March was 10.2%. Patient denies dyspepsia, dysphagia or odynophagia. Patient denies any melena, hematochezia, unintentional weight loss or ribbon like stools. [facility], [facility] Medical History Elevated blood pressure reading Nocturnal enuresis Right shoulder pain NATTY (obstructive sleep apnea) Hepatomegaly Hepatic steatosis Type II diabetes mellitus Mixed dyslipidemia Abnormal liver function IFG (impaired fasting glucose) Fatigue Snoring Routine physical examination Screening for cardiovascular condition Heart murmur Pilonidal cyst Surgical History History of inguinal hernia repair, bilateral History of wisdom tooth extraction History of ankle surgery Family History Sister Diabetes Mental health disorder Mother Diabetes Maternal Grandmother Alcoholism Paternal Grandmother Cancer Social History Household Members: Family Housing: Apartment Alcohol intake: never Patient Tobacco Use Status: Never used Tobacco e-Cigarette/Vaping Use: Never Used Second Hand Smoke Exposure: No service: No Current occupational status: employed 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 The body and tail are obscured by bowel gas. LIVER: Liver displays coarse increased echogenicity with a small area of focal sparing adjacent to the gallbladder fossa. The right lobe measures 22 cm in length. The left lobe measures 14 cm in length. Main portal vein is patent with a normal direction of flow and a continuous venous waveform. Shear wave elastography provides a median stiffness of 1.6 m/s, previously 2.0 m/s (reference: normal median stiffness is 0.81 - 1.22 m/s). The IQR/median stiffness to assess sampling precision is 0.09 (reference: optimal IQR/median stiffness is under 0.3). GALLBLADDER: The gallbladder is physiologically distended without evidence of stones, sludge, polyps, wall thickening or pericholecystic fluid. COMMON BILE DUCT: Normal in caliber measuring 0.6 cm in diameter. RIGHT KIDNEY: No hydronephrosis. No renal calculi or focal parenchymal lesions. The kidney measures 14.5 cm in maximum dimension. FREE FLUID: None seen. US/US abdomen coelho w elastography IMPRESSION: 1. Hepatic steatosis 2. Elastography: In the absence of other known clinical signs, rules out compensated advanced chronic liver disease. This represents an improvement from the prior stud. Laboratory Tests 10/01/24 12/06/24 03/14/25 11:29 16:19 15:04 Glucose (Clinic) Hgb A1c (Clinic) 8.8 H 10.2 H Hemoglobin A1c % 9.8 H AST 37 Alkaline Phosphatase 44 Liver Fibrosis Stage F1 05/05/25 14:47 Glucose (Clinic) 358 H* Hgb A1c (Clinic) Hemoglobin A1c % AST Alkaline Phosphatase Liver Fibrosis Stage Assessment & Plan Assessment & Plan (1) Hepatomegaly: Code(s): R16.0 - Hepatomegaly, not elsewhere classified Category: Medical (2) Hepatic steatosis: Code(s): K76.0 - Fatty (change of) liver, not elsewhere classified Category: Medical (3) Abnormal liver function: Code(s): R94.5 - Abnormal results of liver function studies Category: Medical (4) Mixed dyslipidemia: Code(s): E78.2 - Mixed hyperlipidemia Category: Medical Plan Patient was encouraged to get his blood work done today. We will repeat blood work again in 6 months and elastography in 6 months. Encouraged patient to try to lose weight. Low fat, low carb, low-salt and high-protein diet recommended. Discussed the importance of better management of his diabetes. Patient will return in 6 months, sooner on as needed basis. Patient is agreeable to this plan and verbalizes understanding of instructions. He was given the opportunity to ask questions and all questions answered. Thank you for allowing me to participate in his care Orders: Orders Liver Panel Today R74.01 - Elevation of levels of liver transaminase levels US abdomen coelho w elastography 6 Months K76.0 - Fatty (change of) liver, not elsewhere classified Hemoglobin A1c Today E11.9 - Type 2 diabetes mellitus without complications Coding Level of Care Code Est Pt Level 4 (43546) Complex visit Add On G2211 Diagnoses Hepatomegaly R16.0 Hepatic steatosis K76.0 Abnormal liver function R94.5 Mixed dyslipidemia E78.2 Time Spent (min) 35 Comment 25 minutes spent with patient and additional 10 minutes spent reviewing his records
[2025-05-30 15:31] VITALS: BP 134/82; PULSE 102; O2SAT 97; BMI 43.6
--- OUTSIDE RECORDS SUMMARY | 2025-05-30 20:01 | XMS_ITS | Encounter Summary ---
Author Organization [facility] Address [address] [place] [address] Phone Care Team Providers Care Prototype Machine Operator Name Role Phone Unavailable Primary Care Provider Unavailabl e Encounter Details Date Type Department Care Team (Late st Contact Info) Description 04/08/2011 Documentation [facility] [address] [place] [address] Family Medicine, Physician [facility] [place] [phone] Social History Tobacco Use Types Packs/Day Years [...]
--- OUTSIDE RECORDS SUMMARY | 2025-05-30 20:01 | XMS_ITS | Encounter Summary ---
Author Organization [facility] Address [address] [place] [address] Phone Care Team Providers Care Cashiers Bussers Food Runners Name Role Phone Unavailable Primary Care Provider Unavailabl e Encounter Details Date Type Department Care Team (Late st Contact Info) Description 04/08/2011 Documentation [facility] [address] [place] [address] Family Medicine, Physician [facility] [place] [phone] Social History Tobacco Use Types Packs/Day Years [...]
--- OUTSIDE RECORDS SUMMARY | 2025-05-30 20:01 | XMS_ITS | Encounter Summary ---
Author Organization [facility] Address [address] [place] [phone] Phone Care Team Providers Care Crew Truck Driver Name Role Phone Unavailable Primary Care Provider Unavailabl e Encounter Details Date Type Department Care Team (Late st Contact Info) Description 04/08/2011 Documentation [facility] [address] [place] [address] Family Medicine, Physician [facility] [place] [phone] Social History Tobacco Use Types Packs/Day Years [...]
--- OUTSIDE RECORDS SUMMARY | 2025-05-30 20:01 | XMS_ITS | Clinical Summary ---
Author Organization [facility] Address [address] [place] [address] Phone Care Team Providers Care Framing Specialist Name Role Phone Unavailable Primary Care [...]
--- OUTSIDE RECORDS SUMMARY | 2025-05-30 20:01 | XMS_ITS | Encounter Summary ---
Author Organization [facility] Address [address] [place] [address] Phone Care Team Providers Care Project Management Specialist Name Role Phone Unavailable Primary Care Provider Unavailabl e Encounter Details Date Type Department Care Team (Late st Contact Info) Description 04/08/2011 Documentation [facility] [address] [place] [address] Family Medicine, Physician [facility] [place] [phone] Social History Tobacco Use Types Packs/Day Years [...]
--- OUTSIDE RECORDS SUMMARY | 2025-05-30 20:01 | XMS_ITS | Encounter Summary ---
Author Organization [facility] Address [address] [place] [address] Phone Care Team Providers Care Ribbon Cleaner Name Role Phone Unavailable Primary Care Provider Unavailabl e Encounter Details Date Type Department Care Team (Late st Contact Info) Description 04/08/2011 Documentation [facility] [address] [place] [address] Family Medicine, Physician [facility] [place] [phone] Social History Tobacco Use Types Packs/Day Years [...]
--- OUTSIDE RECORDS SUMMARY | 2025-05-30 20:01 | XMS_ITS | Encounter Summary ---
Author Organization [facility] Address [address] [place] [address] Phone Care Team Providers Care Machine Adjuster Helper Name Role Phone Unavailable Primary Care Provider Unavailabl e Encounter Details Date Type Department Care Team (Late st Contact Info) Description 04/08/2011 Documentation [facility] [address] [place] [address] Family Medicine, [facility] [place] [phone] Social History Tobacco Use Types Packs/Day Years [...]
--- OUTSIDE RECORDS SUMMARY | 2025-05-30 20:01 | XMS_ITS | Encounter Summary ---
Author Organization [facility] Address [address] [place] [address] Phone Care Team Providers Care Drum Stenciler Name Role Phone Unavailable Primary Care Provider Unavailabl e Encounter Details Date Type Department Care Team (Late st Contact Info) Description 04/08/2011 Documentation [facility] [address] [place] [address] Family Medicine, Physician [facility] [place] [phone] Social History Tobacco Use Types Packs/Day Years [...]
--- OUTSIDE RECORDS SUMMARY | 2025-05-30 20:01 | XMS_ITS | Encounter Summary ---
Author Organization [facility] Address [address] [place] [address] Phone Care Team Providers Care Waist Cutter Name Role Phone Unavailable Primary Care Provider Unavailabl e Encounter Details Date Type Department Care Team (Late st Contact Info) Description 04/08/2011 Documentation [facility] [address] [place] [address] Family Medicine, Physician [facility] [place] [phone] Social History Tobacco Use Types Packs/Day Years [...]
--- OUTSIDE RECORDS SUMMARY | 2025-05-30 20:01 | XMS_ITS | Encounter Summary ---
Author Organization [facility] Address [address] [place] [address] Phone Care Team Providers Care New Autos Delivery Driver Name Role Phone Unavailable Primary Care Provider Unavailabl e Encounter Details Date Type Department Care Team (Late st Contact Info) Description 02/20/2017 Conversion Encounter [facility] - [address] [phone] Social History Tobacco Use Types Packs/Day Years [...]
--- OUTSIDE RECORDS SUMMARY | 2025-05-30 20:01 | XMS_ITS | Encounter Summary ---
Author Organization [facility] Address [address] [place] [phone] Phone Care Team Providers Care Construction Mgr Name Role Phone Unavailable Primary Care Provider Unavailabl e Encounter Details Date Type Department Care Team (Late st Contact Info) Description 04/08/2011 Documentation [facility] [address] [place] [address] Family Medicine, Physician [facility] [place], [place] [phone] Social History Tobacco Use Types Packs/Day Years [...]
== END 2025-05-30 15:43 | disposition home or self-care (01) ==
LOC: HO.HGI 15:23
PROVIDERS: PCP Physician Assistant Medical; Visit Provider Nurse Practitioner Family
DX: R16.0 Hepatomegaly, not elsewhere classified (principal); K76.0 Fatty (change of) liver, not elsewhere classified; R94.5 Abnormal results of liver function studies; E78.2 Mixed hyperlipidemia
CPT/HCPCS: 99214

== ENCOUNTER 2025-06-09 14:52 | Outpatient (AMB) | payer BC, SELFPAY ==
--- NOTE | 2025-06-09 15:15 | MHC.PC.OV ---
Vital Signs 06/09/25 15:18 Height 5 ft 10 in Weight 307 lb 4 oz BMI 44.1 BP 128/72 Blood Pressure Location Rt brachial Position Sitting Respiration 16 Pulse 92 Pulse Source Pulse Oximeter Temp 97.2 F Temp Source Temporal Artery Scan Pulse Oximetry (%) 95 Oxygen Delivery Method Room Air Intake Visit Reasons: Type II diabetes Intake Note: Gucci presents in the office today for a follow up to his diabetes. Mapping Specialist Required: No Allergies povidone-iodine (From Betadine) Allergy (Severe, Verified 06/09/25 15:17) Hives animal dander Allergy (Intermediate, Verified 06/09/25 15:17) Hives Tobacco use date assessed: 06/09/25 Dental Screening Dental Screen Date: 06/09/25 Did you have a dental visit in the last 12 months?: Yes Did you have a dental problem in the last 6 months where you did not have access to dental care?: No Was dental information given to patient?: Patient has dentist HPI HPI Comments History of Present Illness Details This is a 35-year-old male with a past medical history of obesity, a heart murmur, fatigue and snoring, type 2 diabetes, mixed dyslipidemia, hepatomegaly and hepatic steatosis presenting for follow up. Type 2 diabetes-A1c 10.6% He was diagnosed with diabetes in 2023. He has not been checking blood sugars. He has a family history of diabetes. Patient met with endocrinology. Taking metformin extended release 2000 mg daily. He is trying to cut back on starchy foods and sugars. He started using a dental box so that it limits portion sizes. He is down 3 lb from March. Drinks water. No alcohol. Nosmoker. He continues to decline insulin and GLP 1. Past medication: Glipizide and Januvia. Hyperlipidemia-prescribed atorvastatin. He has struggled with compliance. The patient had an echocardiogram completed on 04/26/2024 which showed no significant valve disease, and ejection fraction was normal. Patient was evaluated by Gastroenterology for hepatic steatosis. NATTY-CPAP. Followed by sleep medicine. Declines flu vaccine. Endorses dry, scaly rash on right hand for the past 3 months. He has never had previous episodes. No new exposures or exposures to chemicals. Tried cortisone for a few days. ROS: Constitutional: No unexplained weight loss, fever, chills or night sweats. Eyes: No vision changes, blurry vision, double vision, eye pain, eye redness, eye discharge. Respiratory: No shortness of breath, cough or sputum production. Cardiovascular: No chest pain, chest pressure or chest discomfort. No palpitations or pedal edema. Gastrointestinal: No anorexia, nausea, vomiting or diarrhea. No abdominal pain Neurologic: No headache, dizziness, syncope, unilateral weakness, ataxia, numbness or tingling in the extremities. Physical exam: Constitutional: Alert, in no distress. Eyes: Pupils are equal, round and reactive to light. Extraocular muscles intact. Neck: Supple, Full range of motion. No lymphadenopathy. No palpable thyroid masses. Respiratory: Clear to auscultation. Cardiovascular: S1 S2 regular. I/6 systolic murmur. Skin: Mildly erythematous plaque with thick white scales covering the thenar and hypothenar eminences of the right palm. No pustules, weeping or discharge. No swelling. [facility] Medical History (Updated 06/09/25 @ 16:44 by KERLINE Montemayor) Skin rash Elevated blood pressure reading Nocturnal enuresis Right shoulder pain NATTY (obstructive sleep apnea) Hepatomegaly Hepatic steatosis Type II diabetes mellitus Mixed dyslipidemia Abnormal liver function IFG (impaired fasting glucose) Fatigue Snoring Routine physical examination Screening for cardiovascular condition Heart murmur Pilonidal cyst Surgical History History of inguinal hernia repair, bilateral History of wisdom tooth extraction History of ankle surgery Family History Sister Diabetes Mental health disorder Mother Diabetes Maternal Grandmother Alcoholism Paternal Grandmother Cancer Social History (Updated 06/09/25 @ 15:18 by Paris iN CMA) Household Members: Family Housing: Apartment Alcohol intake: never Patient Tobacco Use Status: Never used Tobacco e-Cigarette/Vaping Use: Never Used Second Hand Smoke Exposure: No service: No Current occupational status: employed 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 Cognitive needs: No Hearing needs: Yes (occasion ) Vision needs: Yes (wear glasses) Questionnaire Thrive Questionnaire Date Thrive assessed: 10/18/24 I am a: Patient What is your living situation today?: I have a place to live, but I am worried about losing it in the future Within the past 12 months, did the food you bought not last and you didn't have the money to get more?: Never true Within the past 12 months, did you worry whether your food would run out before you got money to buy more?: Never true Do you have trouble paying for medicines?: No Do you have trouble getting transportation to medical appointments?: No Do you have trouble paying your heating and electricity bill?: No Do you have trouble taking care of your child, family member or friend?: No Do you have trouble with day-to-day activities such as bathing, preparing meals, shopping, managing finances, etc.?: No Are you currently unemployed and looking for a job?: No Are you interested in more education?: Yes Please select the resources that you would like help with: None Currently or been in a relationship where the following occur: No concerns reported THRIVE Score: 1 JAN-7 AMB Questionnaire JAN-7 Date JAN - 7 assessed: 10/18/24 Source: Developed by Drs. Curtis Khan, Josephine Briceno, Adair Jewell and colleagues, with an educational jeffery from [address]. Physical exam (Primary Care) Vital Signs: Last Vital Signs Temp 97.2 F 06/09/25 15:18 Pulse 92 06/09/25 15:18 Resp 16 06/09/25 15:18 BP 128/72 06/09/25 15:18 Pulse Ox 95 06/09/25 15:18 Oxygen Delivery Method Room Air 06/09/25 15:18 BMI result Body Mass Index 44.1 Tobacco/Smoking Status: Tobacco use Status Tobacco use date assessed 06/09/25 06/09/25 15:20 Patient Tobacco Use Status Never used Tobacco 06/09/25 15:20 e-Cigarette/Vaping Use Never Used 06/09/25 15:20 Thrive Assessment: Date of Thrive Assessment Date Thrive assessed 10/18/24 06/09/25 15:20 Currently or been in a relationship where the following occur: No concerns reported Coding Level of Care Code Est Pt Level 4 (91361) Complex visit Add On G2211 Diagnoses Type 2 diabetes mellitus without complication, without long-term current use of insulin E11.9 Diabetes mellitus mcc insulin use: without mcc use Diabetes mellitus complication status: without complication Hepatic steatosis K76.0 Mixed dyslipidemia E78.2 NATTY (obstructive sleep apnea) G47.33 Skin rash R21 Assessment & Plan Assessment & Plan (1) Type II diabetes mellitus: Code(s): E11.9 - Type 2 diabetes mellitus without complications Category: Medical Qualifiers: Diabetes mellitus parts counterman insulin use: without parts counterman use Diabetes mellitus complication status: without complication Qualified Code(s): E11.9 - Type 2 diabetes mellitus without complications Plan: Continues to decline injectable medication including GLP 1 though he would be a good candidate for this. Continue metformin extended release 2000 mg daily. He has a follow up with endocrinology at the end of the month. Continue efforts at weight loss, low carb diet, decrease portion sizes. Avoid soda and juices. (2) Hepatic steatosis: Code(s): K76.0 - Fatty (change of) liver, not elsewhere classified Category: Medical Plan: Followed by Gastroenterology. Treating diabetes and dyslipidemia. Lifestyle modifications reviewed again. Avoid alcohol. Decrease cholesterol rich foods in diet. Increase lean proteins and fibrous fruits and vegetables. (3) Mixed dyslipidemia: Code(s): E78.2 - Mixed hyperlipidemia Category: Medical Plan: Stressed importance of taking atorvastatin 20 mg daily. Recommended Mediterranean diet. (4) NATTY (obstructive sleep apnea): Comment: nocturnal hypoxemia Code(s): G47.33 - Obstructive sleep apnea (adult) (pediatric) Category: Medical Plan: Recommended weight loss, avoidance of alcohol and avoid sleeping supine. Use CPAP consistently. (5) Skin rash: Code(s): R21 - Rash and other nonspecific skin eruption Category: Medical Plan: ? Psoriatic plaque. Refer to derm. Trial of triamcinolone. Patient deferred follow up in 2 weeks but he will send a picture over the patient portal. Plan He will schedule a physical exam. Orders: Orders Lipid Panel 08/30/25 E11.9 - Type 2 diabetes mellitus without complications, E78.2 - Mixed hyperlipidemia, E78.5 - Hyperlipidemia, unspecified, K76.0 - Fatty (change of) liver, not elsewhere classified, R94.5 - Abnormal results of liver function studies Microalbumin, Random (w Creat) 08/30/25 E11.9 - Type 2 diabetes mellitus without complications, E78.2 - Mixed hyperlipidemia, K76.0 - Fatty (change of) liver, not elsewhere classified, R94.5 - Abnormal results of liver function studies Vitamin B12 08/30/25 E11.9 - Type 2 diabetes mellitus without complications, E78.2 - Mixed hyperlipidemia, K76.0 - Fatty (change of) liver, not elsewhere classified, R94.5 - Abnormal results of liver function studies, Z91.89 - Other specified personal risk factors, not elsewhere classified Complete Blood Count no Diff 08/30/25 E11.9 - Type 2 diabetes mellitus without complications, E78.2 - Mixed hyperlipidemia, K76.0 - Fatty (change of) liver, not elsewhere classified, R94.5 - Abnormal results of liver function studies Comprehensive Met. Panel 08/30/25 E11.9 - Type 2 diabetes mellitus without complications, E78.2 - Mixed hyperlipidemia, K76.0 - Fatty (change of) liver, not elsewhere classified, R94.5 - Abnormal results of liver function studies Referrals Dermatology Referral R21 - Rash and other nonspecific skin eruption Medications: New triamcinolone acetonide 0.1% 1 appl topical BID 30 grams 0RF 10 days
[2025-06-09 15:18] VITALS: BP 128/72; PULSE 92; RESP 16; TEMP 36.2; O2SAT 95; BMI 44.1
--- OUTSIDE RECORDS SUMMARY | 2025-06-09 21:05 | XMS_ITS | Encounter Summary ---
Author Organization [facility] Address [address] [place] [address] Phone Care Team Providers Care Sweat Band Sewer Name Role Phone Unavailable Primary Care Provider Unavailabl e Encounter Details Date Type Department Care Team (Late st Contact Info) Description 04/08/2011 Documentation [facility] [address] [place] [address] Family Medicine, Physician [facility] [place], [place] [phone] Social History Tobacco Use Types Packs/Day Years [...]
--- OUTSIDE RECORDS SUMMARY | 2025-06-09 21:05 | XMS_ITS | Encounter Summary ---
Author Organization [facility] Address [address] [place] [phone] Phone Care Team Providers Care Commercial Collector Name Role Phone Unavailable Primary Care Provider Unavailabl e Encounter Details Date Type Department Care Team (Late st Contact Info) Description 04/08/2011 Documentation [facility] [address] [place] [address] Family Medicine, Physician [facility] [place] [phone] Social History Tobacco Use Types Packs/Day Years [...]
--- OUTSIDE RECORDS SUMMARY | 2025-06-09 21:05 | XMS_ITS | Encounter Summary ---
Author Organization [facility] Address [address] [place] [address] Phone Care Team Providers Care Radiology Technologist Name Role Phone Unavailable Primary Care Provider Unavailabl e Encounter Details Date Type Department Care Team (Late st Contact Info) Description 04/08/2011 Documentation [facility] [address] [place] [address] Family Medicine, Physician [facility] [place] [phone] Social History Tobacco Use Types Packs/Day Years [...]
--- OUTSIDE RECORDS SUMMARY | 2025-06-09 21:05 | XMS_ITS | Encounter Summary ---
Author Organization [facility] Address [address] [place] [address] Phone Care Team Providers Care Malt Specifications Control Assistant Name Role Phone Unavailable Primary Care Provider Unavailabl e Encounter Details Date Type Department Care Team (Late st Contact Info) Description 04/08/2011 Documentation [facility] [address] [place] [address] Family Medicine, Physician [facility] [place], [place] [phone] Social History Tobacco Use Types Packs/Day Years [...]
--- OUTSIDE RECORDS SUMMARY | 2025-06-09 21:05 | XMS_ITS | Clinical Summary ---
Author Organization [facility] Address [address] [place] [address] Phone Care Team Providers Care Poured Pipe Maker Name Role Phone Unavailable Primary Care Provider [...]
--- OUTSIDE RECORDS SUMMARY | 2025-06-09 21:05 | XMS_ITS | Encounter Summary ---
Author Organization [facility] Address [address] [place] [address] Phone Care Team Providers Care Records Specialist Name Role Phone Unavailable Primary Care Provider Unavailabl e Encounter Details Date Type Department Care Team (Late st Contact Info) Description 02/20/2017 Conversion Encounter [facility] - [address] [phone] Social History Tobacco Use Types Packs/Day Years [...]
--- OUTSIDE RECORDS SUMMARY | 2025-06-09 21:05 | XMS_ITS | Encounter Summary ---
Author Organization [facility] Address [address] [place] [address] Phone Care Team Providers Care Airport Sales Agent Name Role Phone Unavailable Primary Care Provider Unavailabl e Encounter Details Date Type Department Care Team (Late st Contact Info) Description 04/08/2011 Documentation [facility] [address] [place] [address] Family Medicine, Physician [facility] [place] [phone] Social History Tobacco Use Types Packs/Day Years [...]
--- OUTSIDE RECORDS SUMMARY | 2025-06-09 21:05 | XMS_ITS | Encounter Summary ---
Author Organization [facility] Address [address] [place] [address] Phone Care Team Providers Care Student Life Coordinator Name Role Phone Unavailable Primary Care Provider Unavailabl e Encounter Details Date Type Department Care Team (Late st Contact Info) Description 04/08/2011 Documentation [facility] [address] [place] [address] Family Medicine, Physician [facility] [place], [place] [phone] Social History Tobacco Use Types Packs/Day Years [...]
== END 2025-06-09 15:41 | disposition home or self-care (01) ==
LOC: HO.HMCFM 14:53
PROVIDERS: PCP Physician Assistant Medical; Visit Provider Physician Assistant Medical
DX: E11.9 Type 2 diabetes mellitus without complications (principal); K76.0 Fatty (change of) liver, not elsewhere classified; E78.2 Mixed hyperlipidemia; G47.33 Obstructive sleep apnea (adult) (pediatric); R21 Rash and other nonspecific skin eruption

== ENCOUNTER 2025-07-06 14:47 | Outpatient (AMB) | payer BC, SELFPAY ==
--- NOTE | 2025-07-06 14:49 | A.OFFVIS_ITS ---
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 Software Development Engineer Most recent HbA1c: 10.6%, 05/30/2025 Random Glucose: 314 mg/dL Foundation Coordinator Required: No Accompanied by: Self / Same As Patient Allergies povidone-iodine (From Betadine) Allergy (Severe, Verified 07/06/25 14:52) Hives animal dander Allergy (Intermediate, Verified 07/06/25 14:52) Hives HPI Comments Details: This is a 35-year-old male presenting for diabetic consultation Medical history: obesity, a heart murmur, fatigue and snoring, type 2 diabetes, mixed dyslipidemia, hepatomegaly and hepatic steatosis He was diagnosed with diabetes in 2023 Type 2 diabetes- A1c 10.6 05/2025 from 10.2% 03/14/2025 Current meds Metformin 2000 daily XR-reports compliance Glipizide extended release 10 mg daily-was on hold He had not been on metformin due to betadine allergy though glucophage does not contain povidone. Was on januvia which he could resume but stopped when he started metformin. Does not want injectable meds Has OTC glucometer. Has not been checking regularly. Did not bring meter today He is not following a low carb diet, but he has cut back on sugar. He eats 1-2 servings of carbs with most meals. Drinks water. No alcohol. Nosmoker. He continues to decline insulin and GLP 1 medications. Patient says that takes atorvastatin once or twice per week. The patient had an echocardiogram completed on 04/26/2024 which showed no significant valve disease, and ejection fraction was normal. Denies hypoglycemia Patient reports his last eye exam was in January 2025. Denies retinopathy. On 03/06/2024 his total bilirubin and ALT were mildly elevated at 1.4 and 55, respectively. Negative testing for hepatitis a, B and C. Normal AST and alkaline phosphatase. He had a liver ultrasound which showed hepatic steatosis and hepatomegaly. Patient is seeing Gastroenterology. He does not drink alcohol. He continues to decline referral to a dietitian and visual educator ROS CONSTITUTIONAL: Denies weight loss, fever and chills. HEENT: Denies changes in vision and hearing. RESPIRATORY: Denies SOB and cough. CV: Denies palpitations and CP GI: Denies abdominal pain, nausea, vomiting and diarrhea. : Denies dysuria and urinary frequency. MSK: Denies new myalgia and joint pain. SKIN: Denies foot lesions NEUROLOGICAL: Denies headache PSYCHIATRIC: Denies recent changes in mood. PHYSICAL EXAM: GENERAL: Alert and oriented x 3. NAD EYES: EOMI. Anicteric. HENT: Moist mucous membranes. No scleral icterus. No cervical lymphadenopathy. LUNGS: Clear to auscultation bilaterally. CARDIOVASCULAR: Regular rate and rhythm. ABDOMEN: Soft, non-tender +bs EXTREMITIES: No edema. +PT pulses. Non-tender. SKIN: No rashes or lesions. Warm. NEUROLOGIC: No focal neurological deficits. CN II-XII grossly intact PSYCHIATRIC: Cooperative. Appropriate mood and affect. [facility] Medical History (Updated 07/06/25 @ 15:27 by Lyntete Millan MD) Skin rash Elevated blood pressure reading Nocturnal enuresis Right shoulder pain NATTY (obstructive sleep apnea) Hepatomegaly Hepatic steatosis Type II diabetes mellitus Mixed dyslipidemia Abnormal liver function IFG (impaired fasting glucose) Fatigue Snoring Routine physical examination Screening for cardiovascular condition Heart murmur Pilonidal cyst Surgical History History of inguinal hernia repair, bilateral History of wisdom tooth extraction History of ankle surgery Family History Sister Diabetes Mental health disorder Mother Diabetes Maternal Grandmother Alcoholism Paternal Grandmother Cancer Social History Household Members: Family Housing: Apartment Alcohol intake: never Patient Tobacco Use Status: Never used Tobacco e-Cigarette/Vaping Use: Never Used Second Hand Smoke Exposure: No service: No Current occupational status: employed 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 Cognitive needs: No Hearing needs: Yes (occasion ) Vision needs: Yes (wear glasses) Physical Exam Vital Signs: Last Vital Signs Pulse 107 H 07/06/25 14:50 BP 132/84 07/06/25 14:50 Pulse Ox 98 07/06/25 14:50 Oxygen Delivery Method Room Air 07/06/25 14:50 BMI result Body Mass Index 43.6 Assessment & Plan Assessment & Plan (1) Type II diabetes mellitus: Code(s): E11.9 - Type 2 diabetes mellitus without complications Category: Medical Qualifiers: Diabetes mellitus usp insulin use: without local intermodal truck driver use Diabetes mellitus complication status: without complication Qualified Code(s): E11.9 - Type 2 diabetes mellitus without complications Plan 35 year old male for diabetic follow up Diabetes is uncontrolled. Start glipizide 20mg. Continue metformin. Start rybelsus if insurance covers Treat hypoglycemia by rules of 15s Efforts at weight loss, decrease carb/sugar intake Return in 2 months for follow up/A1C or sooner as needed Medications: New semaglutide (Rybelsus) 3 mg PO DAILY 90 tabs 3RF 90 days glipizide ER 20 mg (2 x 10 mg) PO DAILY 180 tabs 3RF Coding Level of Care Code Est Pt Level 4 (46263) Diagnoses Type 2 diabetes mellitus without complication, without long-term current use of insulin E11.9 Diabetes mellitus usp insulin use: without usp use Diabetes mellitus complication status: without complication
[2025-07-06 14:50] VITALS: BP 132/84; PULSE 107; O2SAT 98; BMI 43.6
[2025-07-06 15:01] LABS: Glucose, Whole Blood 314 mg/dL (60-115)
--- OUTSIDE RECORDS SUMMARY | 2025-07-06 15:48 | XMS_ITS | Encounter Summary ---
Author Organization [facility] Address [address] [place] [address] Phone Care Team Providers Care Care Advocate Name Role Phone Unavailable Primary Care Provider Unavailabl e Encounter Details Date Type Department Care Team (Late st Contact Info) Description 04/08/2011 Documentation [facility] [address] [place] [address] Family Medicine, Physician [facility] [place] [phone] Social History Tobacco Use Types Packs/Day Years [...]
--- OUTSIDE RECORDS SUMMARY | 2025-07-06 15:48 | XMS_ITS | Encounter Summary ---
Author Organization [facility] Address [address] [place] [address] Phone Care Team Providers Care Ela Teacher Name Role Phone Unavailable Primary Care Provider Unavailabl e Encounter Details Date Type Department Care Team (Late st Contact Info) Description 04/08/2011 Documentation [facility] [address] [place] [address] Family Medicine, Physician [facility] [place] [phone] Social History Tobacco Use Types Packs/Day Years [...]
--- OUTSIDE RECORDS SUMMARY | 2025-07-06 15:48 | XMS_ITS | Encounter Summary ---
Author Organization [facility] Address [address] [place] [address] Phone Care Team Providers Care Armhole Baster Hand Name Role Phone Unavailable Primary Care Provider Unavailabl e Encounter Details Date Type Department Care Team (Late st Contact Info) Description 04/08/2011 Documentation [facility] [address] [place] [address] Family Medicine, Physician [facility] [place] [phone] Social History Tobacco Use Types Packs/Day Years [...]
--- OUTSIDE RECORDS SUMMARY | 2025-07-06 15:48 | XMS_ITS | Encounter Summary ---
Author Organization [facility] Address [address] [place] [address] Phone Care Team Providers Care Paint Line Production Supervisor Name Role Phone Unavailable Primary Care Provider Unavailabl e Encounter Details Date Type Department Care Team (Late st Contact Info) Description 04/08/2011 Documentation [facility] [address] [place] [address] Family Medicine, Physician [facility] [place], [place] [phone] Social History Tobacco Use Types Packs/Day Years [...]
--- OUTSIDE RECORDS SUMMARY | 2025-07-06 15:48 | XMS_ITS | Clinical Summary ---
Author Organization [facility] Address [address] [place] [address] Phone Care Team Providers Care Cops Name Role Phone Unavailable Primary Care Provider [...]
--- OUTSIDE RECORDS SUMMARY | 2025-07-06 15:48 | XMS_ITS | Encounter Summary ---
Author Organization [facility] Address [address] [place] [address] Phone Care Team Providers Care Dredging Inspector Name Role Phone Unavailable Primary Care Provider Unavailabl e Encounter Details Date Type Department Care Team (Late st Contact Info) Description 04/08/2011 Documentation [facility] [address] [place] [address] Family Medicine, Physician [facility] [place] [phone] Social History Tobacco Use Types Packs/Day Years [...]
--- OUTSIDE RECORDS SUMMARY | 2025-07-06 15:48 | XMS_ITS | Encounter Summary ---
Author Organization [facility] Address [address] [place] [address] Phone Care Team Providers Care Mechanical Drawing Teacher Name Role Phone Unavailable Primary Care Provider Unavailabl e Encounter Details Date Type Department Care Team (Late st Contact Info) Description 04/08/2011 Documentation [facility] [address] [place] [address] Family Medicine, Physician [facility] [place], [place] [phone] Social History Tobacco Use Types Packs/Day Years [...]
--- OUTSIDE RECORDS SUMMARY | 2025-07-06 15:48 | XMS_ITS | Encounter Summary ---
Author Organization [facility] Address [address] [place] [address] Phone Care Team Providers Care Library Circulation Clerk Name Role Phone Unavailable Primary Care Provider Unavailabl e Encounter Details Date Type Department Care Team (Late st Contact Info) Description 02/20/2017 Conversion Encounter [facility] - [address] [phone] Social History Tobacco Use Types Packs/Day Years [...]
--- OUTSIDE RECORDS SUMMARY | 2025-07-06 15:48 | XMS_ITS | Encounter Summary ---
Author Organization [facility] Address [address] [place] [address] Phone Care Team Providers Care Plastic Process Technician Name Role Phone Unavailable Primary Care Provider Unavailabl e Encounter Details Date Type Department Care Team (Late st Contact Info) Description 04/08/2011 Documentation [facility] [address] [place] [address] Family Medicine, Physician [facility] [place], [place] [phone] Social History Tobacco Use Types Packs/Day Years [...]
--- OUTSIDE RECORDS SUMMARY | 2025-07-06 15:48 | XMS_ITS | Encounter Summary ---
Author Organization [facility] Address [address] [place] [address] Phone Care Team Providers Care Merchandise Support Associate Name Role Phone Unavailable Primary Care Provider Unavailabl e Encounter Details Date Type Department Care Team (Late st Contact Info) Description 04/08/2011 Documentation [facility] [address] [place] [address] Family Medicine, Physician [facility] [place] [phone] Social History Tobacco Use Types Packs/Day Years [...]
--- OUTSIDE RECORDS SUMMARY | 2025-07-06 15:48 | XMS_ITS | Encounter Summary ---
Author Organization [facility] Address [address] [place] [address] Phone Care Team Providers Care Kaiawhina Name Role Phone Unavailable Primary Care Provider Unavailabl e Encounter Details Date Type Department Care Team (Late st Contact Info) Description 04/08/2011 Documentation [facility] [address] [place] [address] Family Medicine, Physician [facility] [place], [place] [phone] Social History Tobacco Use Types Packs/Day Years [...]
== END 2025-07-06 15:14 | disposition home or self-care (01) ==
LOC: HO.ENCR 14:48
PROVIDERS: PCP Physician Assistant Medical; Visit Provider Internal Medicine
DX: E11.9 Type 2 diabetes mellitus without complications (principal)

== ENCOUNTER → 2025-07-06 14:47 | Outpatient (BNVA) | payer BC, SELFPAY | PROVIDERS: PCP Physician Assistant Medical; Visit Provider Internal Medicine | DX: E11.649 Type 2 diabetes mellitus with hypoglycemia without coma (principal); Z79.84 Long term (current) use of oral hypoglycemic drugs | CPT/HCPCS: 82947 ==